=== PATIENT | male | born 1970 | race Caucasian/White ===

== ENCOUNTER 2020-11-22 14:07 | Outpatient (REF) | payer OTHER, SELFPAY ==
[2020-11-22 14:26] LABS: COVID-19 Test Negative (Negative)
== END 2020-11-22 14:08 | disposition home or self-care (01) ==
LOC: HO.EMPCOV 14:07
PROVIDERS: Visit Provider Internal Medicine
DX: Z20.822 Contact with and (suspected) exposure to COVID-19 (principal)
CPT/HCPCS: 36415; 87635; C9803

== ENCOUNTER 2021-03-10 09:33 | Outpatient (REF) | payer OTHER, SELFPAY ==
[2021-03-10 09:55] LABS: COVID-19 Test Negative (Negative)
== END 2021-03-10 09:34 | disposition home or self-care (01) ==
LOC: HO.EMPCOV 09:33
PROVIDERS: Visit Provider Internal Medicine
DX: Z20.822 Contact with and (suspected) exposure to COVID-19 (principal)
CPT/HCPCS: 36415; 87635; C9803

== ENCOUNTER 2021-03-10 10:02 | Emergency (ER) | payer OTHER, SELFPAY ==
--- NOTE | ~2021-03-10 | XR_ITS ---
EXAMINATION: XR CHEST CLINICAL INFORMATION: Chest pain COMPARISON: Chest radiographs 11/26/2019, 06/27/2019 TECHNIQUE: Portable upright AP view of the chest was obtained. FINDINGS: The lungs are clear. There is no pneumothorax, pleural reaction, airspace consolidation, or effusion. The costophrenic sulci are clear. The heart is normal in size. The hilar and mediastinal contours and visualized bony structures are unremarkable. XR/XR chest 1V IMPRESSION: Unremarkable examination.
[2021-03-10 11:14] VITALS: BP 169/78; PULSE 82; RESP 18; TEMP 36.6; O2SAT 98; BMI 33.0
--- NOTE | 2021-03-10 11:17 | ED.URI ---
HPI - URI/Sore Throat General Chief Complaint: General Medical Stated Complaint: covid symptoms Time Seen by Provider: 03/10/21 11:17 Source: patient Mode of arrival: ambulatory Limitations: no limitations History of Present Illness HPI Narrative: 50 yo male with HTN 2 weeks of cough, feeling of heartburn no response to tums, he no longer takes JALEN-i, just tested negative for COVID, not related to exertion, came in due to 2 weeks of cough and feelings of chest tightness MD elicited complaint: cough Onset (ago): week(s) (2) Consistency: intermittent Severity: moderate Description of mucous: clear Able to tolerate fluids by mouth: Yes Exacerbating factors: nothing Relieving factors: nothing Associated symptoms: cough and chest pain Treatments prior to arrival: none Related Data Previous Rx's Medication Instructions Recorded pantoprazole 20 mg PO DAILY 14 Days #14 tab 03/10/21 Allergies Allergy/AdvReac Type Severity Reaction Status Date / Time lisinopril [LISINOPRIL] Allergy Severe ANGIOEDEMA Unverified 08/01/20 17:23 spider venom [SPIDER BITES] Allergy Unknown HIVES, Unverified 08/01/20 17:23 THROAT CLOSES red (food color) AdvReac Severe ANAPHYLAXIS Unverified 08/01/20 17:23 [RED (FOOD COLOR)] SARDINES Allergy Severe ANAPHYLAXIS Uncoded 08/01/20 17:23 Review of Systems Review of Systems: Constitutional : No Weight loss, No Fever, No Chills ENT/Mouth : No sore throat, No Rhinorrhea Eyes: No Eye Pain, No Swelling Cardiovascular : pos Chest Pain, no SOB, no Dyspnea on Exertion, No Orthopnea, No Edema, No Palpitations Respiratory : pos Cough, No Sputum Gastrointestinal : no Nausea, No Vomiting, No Diarrhea, No abdominal Pain, No Hematochezia, No Melena Genitourinary : No Dysuria, No Urinary Frequency Musculoskeletal : No joint pain, No Myalgias, No Joint Swelling Skin : No Skin Lesions, No rash Neuro : No Weakness, No Numbness, No Dizziness, No Headache Psych : No Anxiety/Panic, No Depression Heme/Lymph: No Bruising, No Lymphadenopathy Endocrine : No Polyuria, No Polydipsia All other systems reviewed and are negative PMFSH Past Medical History Attestation statement: The following information was validated with the patient. Medical History HTN (hypertension) Social History Social History (Updated 03/10/21 @ 11:30 by Anahy Olivera DO) Smoking Status: Never smoker Use of substances other than those prescribed or required for medical reasons: No Advance Directives: No Advance Directives Information Provided: No Physical Exam Vital Signs: Vital Signs: Last Vital Signs Temp 97.9 F 03/10/21 11:14 Pulse 82 03/10/21 11:14 Resp 18 03/10/21 11:14 BP 169/78 H 03/10/21 11:14 Pulse Ox 98 03/10/21 11:14 Body Mass Index 33.0 Appearance: Alert. Oriented X3. No acute distress. Eyes: Pupils equal, round and reactive to light. ENT: Pharynx normal. Neck: Normal inspection. Neck supple. CVS: Normal heart rate and rhythm. Pulses normal. Respiratory: No respiratory distress. Breath sounds normal. Abdomen: Soft and nontender. Skin: Skin warm and dry. Normal skin color. Normal skin turgor. Extremities: No lower extremity edema. No calf ttp Neuro: Oriented X 3. No motor deficit. No sensory deficit. Course Course Course Narrative: no acute findings, possible reflux, hx of elevated LFTs will start on PPI and see if this improves his cough MDM - URI/Sore Throat MDM Narrative Medical decision making narrative: 50 yo male with HTN 2 weeks of cough, feeling of heartburn no response to tums, he no longer takes JALEN-i, just tested negative for COVID, not related to exertion, came in due to 2 weeks of cough and feelings of chest tightness seems atypical for PE/dissection/ACS possible GERD vs pneumonia will obtain labs, EKG, CXR, troponin x 1 dispo per results and improvement Lab Data Result diagrams: 03/10/21 11:40 03/10/21 11:40 Labs: Lab Results 03/10/21 03/10/21 03/10/21 Range/Units 11:40 11:40 11:40 WBC 6.3 (4.8-10.8) X10*3/uL RBC 5.27 (4.60-5.80) X10*6/uL Hgb 15.5 (14.0-18.0) g/dl Hct 46.2 (42-52) % MCV 87.7 (80-98) fL MCH 29.4 (27.0-33.0) pg MCHC 33.5 (31.0-36.0) g/dl RDW 13.1 (11.0-16.0) % Plt Count 173 (160-400) X10*3/uL MPV 11.3 (9.4-12.4) fL Immature Gran % (Auto) 0.3 (0.0-0.4) % Neut % (Auto) 61.2 (45-73) % Lymph % (Auto) 26.3 (20-40) % Porter % (Auto) 9.4 (2-11) % Eos % (Auto) 2.5 (0-4) % Baso % (Auto) 0.3 (0-2) % Lymph # (Auto) 1.7 (1.2-4.9) X10*3/uL Porter # (Auto) 0.6 (0.1-1.2) X10*3/uL Eos # (Auto) 0.2 (0.0-0.4) X10*3/uL Baso # (Auto) 0.0 (0.0-0.2) X10*3/uL Abs Immat Gran (auto) 0.02 (0.00-0.03) X10*3/uL Absolute Neuts (auto) 3.8 (2.0-8.3) X10*3/uL Absolute Nucleated RBC 0.000 (0.0-0.012) X10*3/uL Nucleated RBC % (auto) 0.0 (0.0-0.2) /100WBC Hold Blue Top SEE NOTE Sodium 137 (135-145) mmol/L Potassium 3.9 (3.3-5.1) mmol/L Chloride 102 (96-108) mmol/L Carbon Dioxide 26 (22-29) mmol/L Anion Gap 13 (12-20) BUN 12 (9-16) mg/dL Creatinine 0.85 (0.5-1.4) mg/dL Estim Creat Clear Calc 122.9 Estimated GFR > 60 Random Glucose 110 (60-115) mg/dL Calcium 8.9 (8.4-10.2) mg/dL Magnesium 2.2 (1.6-2.6) mg/dL Total Bilirubin 0.6 (0.0-1.0) mg/dL Direct Bilirubin 0.2 (0.0-0.5) mg/dL AST 66 H (5-37) U/L ALT 61 H (0-40) U/L Alkaline Phosphatase 123 H (39-117) U/L Troponin I High Sens (<3.5-35.0) ng/L B-Natriuretic Peptide (<100) pg/mL Total Protein 7.5 (6.5-8.0) g/dL Albumin 4.4 (3.5-5.0) g/dL 03/10/21 03/10/21 Range/Units 11:40 11:40 WBC (4.8-10.8) X10*3/uL RBC (4.60-5.80) X10*6/uL Hgb (14.0-18.0) g/dl Hct (42-52) % MCV (80-98) fL MCH (27.0-33.0) pg MCHC (31.0-36.0) g/dl RDW (11.0-16.0) % Plt Count (160-400) X10*3/uL MPV (9.4-12.4) fL Immature Gran % (Auto) (0.0-0.4) % Neut % (Auto) (45-73) % Lymph % (Auto) (20-40) % Porter % (Auto) (2-11) % Eos % (Auto) (0-4) % Baso % (Auto) (0-2) % Lymph # (Auto) (1.2-4.9) X10*3/uL Porter # (Auto) (0.1-1.2) X10*3/uL Eos # (Auto) (0.0-0.4) X10*3/uL Baso # (Auto) (0.0-0.2) X10*3/uL Abs Immat Gran (auto) (0.00-0.03) X10*3/uL Absolute Neuts (auto) (2.0-8.3) X10*3/uL Absolute Nucleated RBC (0.0-0.012) X10*3/uL Nucleated RBC % (auto) (0.0-0.2) /100WBC Hold Blue Top Sodium (135-145) mmol/L Potassium (3.3-5.1) mmol/L Chloride (96-108) mmol/L Carbon Dioxide (22-29) mmol/L Anion Gap (12-20) BUN (9-16) mg/dL Creatinine (0.5-1.4) mg/dL Estim Creat Clear Calc Estimated GFR Random Glucose (60-115) mg/dL Calcium (8.4-10.2) mg/dL Magnesium (1.6-2.6) mg/dL Total Bilirubin (0.0-1.0) mg/dL Direct Bilirubin (0.0-0.5) mg/dL AST (5-37) U/L ALT (0-40) U/L Alkaline Phosphatase (39-117) U/L Troponin I High Sens < 3.5 (<3.5-35.0) ng/L B-Natriuretic Peptide 29 (<100) pg/mL Total Protein (6.5-8.0) g/dL Albumin (3.5-5.0) g/dL ECG Data Attestation: I personally reviewed and interpreted this ECG as follows: ECG interpretation date: 03/10/21 ECG interpretation time: 12:16 Interpretation: Rate: 79 Rhythm: NSR [place]: normal Normal P waves. Normal KAUSHAL. Normal QRS complex. ST T wave : normal, no JUSTIN qTC:normal prior studies: no acute ischemia The study has been interpreted contemporaneously by me. . Discharge Plan Discharge Clinical Impression: Atypical chest pain, Cough Patient Disposition: Home, Self-Care Instructions: Chest Pain (ED), Chronic Cough (ED) Additional Instructions: return to ED for any worsening symptoms or concerns your liver enzymes are slightly elevated this is chronic but should be monitored for fatty liver by your doctor Prescriptions: New pantoprazole 20 mg tablet,delayed release (DR/EC) 20 mg PO DAILY 14 Days Qty: 14 RF: 0 Referrals: Physician,None [Primary Care Provider] - 5 days (if not better) Stand Alone Forms: Work/School Release
--- NOTE | 2021-03-10 11:24 | ECG_ITS ---
Test Reason : SOB Blood Pressure : / mmHG Vent. Rate : 079 BPM Atrial Rate : 079 BPM P-R Int : 172 ms QRS Dur : 108 ms QT Int : 378 ms P-R-T Axes : 045 066 028 degrees QTc Int : 433 ms Normal sinus rhythm Normal ECG When compared with ECG of 27-JUN-2019 12:41, No significant change was found Referred By: Anahy Olivera Electronically Signed By:CYN GARCIA MD
[2021-03-10 11:45] LABS: MANUAL DIFF FLAG NO
[2021-03-10 11:50] LABS: Basophils Percent Auto 0.3 % (0-2); Eosinophils Absolute Auto 0.2 X10*3/uL (0.0-0.4); Eosinophils Percent Auto 2.5 % (0-4); Hematocrit 46.2 % (42-52); Hemoglobin 15.5 g/dl (14.0-18.0); Imm Gran Abs Auto 0.02 X10*3/uL (0.00-0.03); Imm Gran Pct Auto 0.3 % (0.0-0.4); Lymphocytes Absolute Auto 1.7 X10*3/uL (1.2-4.9); Lymphocytes Percent Auto 26.3 % (20-40); Mean Corpuscular HGB Conc 33.5 g/dl (31.0-36.0); Mean Corpuscular Hemoglobin 29.4 pg (27.0-33.0); Mean Corpuscular Volume 87.7 fL (80-98); Mean Platelet Volume 11.3 fL (9.4-12.4); Monocytes Absolute Auto 0.6 X10*3/uL (0.1-1.2); Monocytes Percent Auto 9.4 % (2-11); Neutrophils Absolute Auto 3.8 X10*3/uL (2.0-8.3); Neutrophils Percent Auto 61.2 % (45-73); Platelet Count 173 X10*3/uL (160-400); Red Blood Count 5.27 X10*6/uL (4.60-5.80); Red Cell Distribution Width 13.1 % (11.0-16.0); White Blood Count 6.3 X10*3/uL (4.8-10.8)
--- NOTE | 2021-03-10 12:07 | PC.NURSE ---
blood labs drawn and sent, chest xray completed.
[2021-03-10 12:14] LABS: Alanine Aminotransferase 61 U/L (0-40); Albumin Level 4.4 g/dL (3.5-5.0); Alkaline Phosphatase 123 U/L (39-117); Anion Gap 13 (12-20); Aspartate Amino Transferase 66 U/L (5-37); Bilirubin Direct 0.2 mg/dL (0.0-0.5); Bilirubin Total 0.6 mg/dL (0.0-1.0); Blood Urea Nitrogen 12 mg/dL (9-16); Calcium 8.9 mg/dL (8.4-10.2); Carbon Dioxide 26 mmol/L (22-29); Chloride 102 mmol/L (96-108); Creatinine Clr Calc Pharmacy 122.9; Estimated Glomerular Filt Rate > 60; Glucose Random 110 mg/dL (60-115); Magnesium 2.2 mg/dL (1.6-2.6); Potassium 3.9 mmol/L (3.3-5.1); Sodium 137 mmol/L (135-145); Total Protein 7.5 g/dL (6.5-8.0)
[2021-03-10 12:18] LABS: Troponin-I High Sensitivity < 3.5 ng/L (<3.5-35.0)
[2021-03-10 12:20] LABS: B Type Natriuretic Peptide 29 pg/mL (<100)
== END 2021-03-10 12:32 | disposition home or self-care (01) ==
PROVIDERS: Emergency Provider Emergency Medicine
DX: R05 Cough (principal); R07.89 Other chest pain; I10 Essential (primary) hypertension; Z79.899 Other long term (current) drug therapy
CPT/HCPCS: 36415; 71045; 80048; 80076; 83735; 83880; 84484; 85025; 93005; 99283

== ENCOUNTER → 2021-07-16 10:30 | Outpatient (BNVA) | payer SELFPAY | DX: Z20.822 Contact with and (suspected) exposure to COVID-19 (principal) | CPT/HCPCS: 36415; 87635 ==

== ENCOUNTER 2021-07-25 14:20 | Emergency (ER) | payer OTHER, SELFPAY ==
--- NOTE | 2021-07-25 | ECG_ITS ---
Test Reason : SOB,CP Blood Pressure : / mmHG Vent. Rate : 086 BPM Atrial Rate : 086 BPM P-R Int : 162 ms QRS Dur : 100 ms QT Int : 376 ms P-R-T Axes : 057 037 041 degrees QTc Int : 449 ms Normal sinus rhythm Normal ECG When compared with ECG of 10-MAR-2021 12:12, No significant change was found Referred By: Generic ED Physician Electronically Signed By:KHURRAM CANCINO
--- NOTE | ~2021-07-25 | XR_ITS ---
EXAMINATION: XR CHEST CLINICAL INFORMATION: Chest pain COMPARISON: Previous chest x-ray February 2021 TECHNIQUE: Frontal view of the chest was obtained. FINDINGS: The cardiac and mediastinal contours are stable. The lungs are clear. There is no pleural effusion or pneumothorax. There is mild curvature of the thoracic spine to the right and degenerative changes. XR/XR chest 1V IMPRESSION: No evidence for acute disease in the chest.
[2021-07-25 14:27] VITALS: BP 145/99; PULSE 91; RESP 16; TEMP 37.1; O2SAT 99; BMI 34.0
[2021-07-25 16:06] LABS: MANUAL DIFF FLAG NO
[2021-07-25 16:10] LABS: Basophils Percent Auto 0.3 % (0-2); Eosinophils Absolute Auto 0.1 X10*3/uL (0.0-0.4); Eosinophils Percent Auto 1.8 % (0-4); Hematocrit 45.2 % (42-52); Hemoglobin 15.4 g/dl (14.0-18.0); Imm Gran Abs Auto 0.01 X10*3/uL (0.00-0.03); Imm Gran Pct Auto 0.1 % (0.0-0.4); Lymphocytes Absolute Auto 1.6 X10*3/uL (1.2-4.9); Lymphocytes Percent Auto 23.2 % (20-40); Mean Corpuscular HGB Conc 34.1 g/dl (31.0-36.0); Mean Corpuscular Hemoglobin 29.5 pg (27.0-33.0); Mean Corpuscular Volume 86.6 fL (80-98); Mean Platelet Volume 11.3 fL (9.4-12.4); Monocytes Absolute Auto 0.5 X10*3/uL (0.1-1.2); Monocytes Percent Auto 7.4 % (2-11); Neutrophils Absolute Auto 4.5 X10*3/uL (2.0-8.3); Neutrophils Percent Auto 67.2 % (45-73); Platelet Count 180 X10*3/uL (160-400); Red Blood Count 5.22 X10*6/uL (4.60-5.80); White Blood Count 6.7 X10*3/uL (4.8-10.8)
[2021-07-25 16:20] LABS: Anion Gap 10 (12-20); Blood Urea Nitrogen 16 mg/dL (9-16); Calcium 9.6 mg/dL (8.4-10.2); Carbon Dioxide 30 mmol/L (22-29); Chloride 102 mmol/L (96-108); Creatinine Clr Calc Pharmacy 102.7; Estimated Glomerular Filt Rate > 60; Glucose Random 151 mg/dL (60-115); Potassium 3.8 mmol/L (3.3-5.1); Sodium 138 mmol/L (135-145)
[2021-07-25 16:23] LABS: COVID-19 Test Negative (Negative)
[2021-07-25 16:27] LABS: Troponin-I High Sensitivity < 3.5 ng/L (<3.5-35.0)
[2021-07-25 18:00] VITALS: TEMP 36.9; O2SAT 95
--- NOTE | 2021-07-25 18:23 | ED.CHESTPAIN ---
HPI - Chest Pain General Chief Complaint: Chest Pain Stated Complaint: multiple complaints Source: patient Mode of arrival: ambulatory Limitations: no limitations History of Present Illness HPI narrative: 51-year-old male presents with chest pain, shortness of breath, sore throat, nausea and vomiting after receiving his COVID vaccine approximately 1 week ago. complaint: chest pain Onset (ago): week(s) (1) Pain location: substernal Severity: moderate Quality: tightness Relieving factors: nothing Exacerbating factors: exertion Associated symptoms: nausea, vomiting and dyspnea Treatment prior to arrival: none Risk Factors Coronary artery disease risk factors: hypertension Thoracic aortic dissection risk factors: none Related Data Previous Rx's Medication Instructions Recorded pantoprazole 20 mg tablet,delayed 20 mg PO DAILY 14 Days #14 tab 03/10/21 release Allergies Allergy/AdvReac Type Severity Reaction Status Date / Time lisinopril [LISINOPRIL] Allergy Severe ANGIOEDEMA Unverified 04/18/21 15:25 spider venom [SPIDER BITES] Allergy Unknown HIVES, Unverified 04/18/21 15:25 THROAT CLOSES red (food color) AdvReac Severe ANAPHYLAXIS Unverified 04/18/21 15:25 [RED (FOOD COLOR)] SARDINES Allergy Severe ANAPHYLAXIS Uncoded 04/18/21 15:25 Review of Systems Review of Systems: Constitutional: No Fever, No Chills ENT/Mouth: No Ear Pain, No Hoarseness, positive sore throat Eyes: No Eye Pain, No Swelling, No Redness, No Foreign Body Cardiovascular: No Chest Pain, positive SOB Respiratory: Positive Cough, No Dyspnea Gastrointestinal: Positive Nausea, positive Vomiting, No Diarrhea, No abdominal Pain Genitourinary: No Dysuria, No Hematuria Musculoskeletal: positive muscle pain, No Myalgias, No Joint Swelling Skin: No Skin lacerations, No rash Neuro: No Weakness, No Numbness, No Paresthesias, No Loss of Consciousness, No Dizziness, No Headache Psych: No Anxiety/Panic, No Depression Heme/Lymph: no easy bruising, no Lymphadenopathy Endocrine: No Polyuria, No Polydipsia Yes all other systems are reviewed and are negative [facility] Past Medical History Attestation statement: The following information was validated with the patient. Source: old records reviewed Medical History HTN (hypertension) Social History Social History Advance Directives: No Advance Directives Information Provided: No Physical Exam Vital Signs: Vital Signs: Last Vital Signs Temp 98.4 F 07/25/21 18:00 Pulse 91 07/25/21 14:27 Resp 16 07/25/21 14:27 BP 145/99 H 07/25/21 14:27 Pulse Ox 95 07/25/21 18:00 Body Mass Index 34.0 Appearance: Alert. Oriented X3. No acute distress. Eyes: Pupils equal, round and reactive to light. Sclera nonicteric. ENT: Pharynx normal. Moist mucous membranes. Neck: Normal inspection. Neck supple. CVS: Normal heart rate and rhythm. Pulses normal. Respiratory: No respiratory distress. Breath sounds normal. Abdomen: Soft and nontender. Obese. Skin: Skin warm and dry. Normal skin color. Normal skin turgor. Extremities: No lower extremity edema. Gait well balanced well coordinated. Neuro: No motor deficit. No sensory deficit. Cranial nerves 2-12 intact. Course Course Course Narrative: 51-year-old male presents with upper respiratory symptoms and chest pain approximately 1 week after receiving COVID-19 vaccine. Labs drawn while he was in the waiting room, negative for acute findings, EKG is normal sinus, troponins are negative. Symptoms are most consistent with upper respiratory infection verses allergies, low likelihood of ACS at this time. Supportive measures for upper respiratory symptoms recommended. Patient verbalized understanding of and agrees to plan of care discharge home. MDM - Chest Pain Differential Diagnosis Differential diagnosis: Likely pneumothorax, stable angina, unstable angina pectoris, atypical chest pain, st elevation myocardial infarction, costochondritis and chest pain Medical Records Data Attestation: I reviewed the patient's medical records. Lab Data Attestation: I reviewed the patient's lab results. Result diagrams: 07/25/21 15:58 07/25/21 15:58 Labs: Lab Results 07/25/21 07/25/21 07/25/21 Range/Units 15:58 15:58 15:58 WBC 6.7 (4.8-10.8) X10*3/uL RBC 5.22 (4.60-5.80) X10*6/uL Hgb 15.4 (14.0-18.0) g/dl Hct 45.2 (42-52) % MCV 86.6 (80-98) fL MCH 29.5 (27.0-33.0) pg MCHC 34.1 (31.0-36.0) g/dl RDW 13.0 (11.0-16.0) % Plt Count 180 (160-400) X10*3/uL MPV 11.3 (9.4-12.4) fL Immature Gran % (Auto) 0.1 (0.0-0.4) % Neut % (Auto) 67.2 (45-73) % Lymph % (Auto) 23.2 (20-40) % Mcleod % (Auto) 7.4 (2-11) % Eos % (Auto) 1.8 (0-4) % Baso % (Auto) 0.3 (0-2) % Lymph # (Auto) 1.6 (1.2-4.9) X10*3/uL Mcleod # (Auto) 0.5 (0.1-1.2) X10*3/uL Eos # (Auto) 0.1 (0.0-0.4) X10*3/uL Baso # (Auto) 0.0 (0.0-0.2) X10*3/uL Abs Immat Gran (auto) 0.01 (0.00-0.03) X10*3/uL Absolute Neuts (auto) 4.5 (2.0-8.3) X10*3/uL Absolute Nucleated RBC 0.000 (0.0-0.012) X10*3/uL Nucleated RBC % (auto) 0.0 (0.0-0.2) /100WBC Sodium 138 (135-145) mmol/L Potassium 3.8 (3.3-5.1) mmol/L Chloride 102 (96-108) mmol/L Carbon Dioxide 30 H (22-29) mmol/L Anion Gap 10 L (12-20) BUN 16 (9-16) mg/dL Creatinine 0.99 (0.5-1.4) mg/dL Estim Creat Clear Calc 102.7 Estimated GFR > 60 Random Glucose 151 H D (60-115) mg/dL Calcium 9.6 D (8.4-10.2) mg/dL Troponin I High Sens < 3.5 (<3.5-35.0) ng/L COVID-19 (JORJE) (Negative) COVID-19 Clin Com 07/25/21 Range/Units 15:58 WBC (4.8-10.8) X10*3/uL RBC (4.60-5.80) X10*6/uL Hgb (14.0-18.0) g/dl Hct (42-52) % MCV (80-98) fL MCH (27.0-33.0) pg MCHC (31.0-36.0) g/dl RDW (11.0-16.0) % Plt Count (160-400) X10*3/uL MPV (9.4-12.4) fL Immature Gran % (Auto) (0.0-0.4) % Neut % (Auto) (45-73) % Lymph % (Auto) (20-40) % Mcleod % (Auto) (2-11) % Eos % (Auto) (0-4) % Baso % (Auto) (0-2) % Lymph # (Auto) (1.2-4.9) X10*3/uL Mcleod # (Auto) (0.1-1.2) X10*3/uL Eos # (Auto) (0.0-0.4) X10*3/uL Baso # (Auto) (0.0-0.2) X10*3/uL Abs Immat Gran (auto) (0.00-0.03) X10*3/uL Absolute Neuts (auto) (2.0-8.3) X10*3/uL Absolute Nucleated RBC (0.0-0.012) X10*3/uL Nucleated RBC % (auto) (0.0-0.2) /100WBC Sodium (135-145) mmol/L Potassium (3.3-5.1) mmol/L Chloride (96-108) mmol/L Carbon Dioxide (22-29) mmol/L Anion Gap (12-20) BUN (9-16) mg/dL Creatinine (0.5-1.4) mg/dL Estim Creat Clear Calc Estimated GFR Random Glucose (60-115) mg/dL Calcium (8.4-10.2) mg/dL Troponin I High Sens (<3.5-35.0) ng/L COVID-19 (JORJE) Negative (Negative) COVID-19 Clin Com See Note Imaging Data Chest x-ray: Attestation: I personally reviewed and interpreted this imaging study as follows: Radiologist's impression: EXAMINATION: XR CHEST CLINICAL INFORMATION: Chest pain COMPARISON: Previous chest x-ray February 2021 TECHNIQUE: Frontal view of the chest was obtained. FINDINGS: The cardiac and mediastinal contours are stable. The lungs are clear. There is no pleural effusion or pneumothorax. There is mild curvature of the thoracic spine to the right and degenerative changes. XR/XR chest 1V IMPRESSION: No evidence for acute disease in the chest. ? ECG Data ECG #1: ECG interpretation date: 07/25/21 ECG interpretation time: 14:43 Prior ECG tracings: available for review Interpretation: Vent. rate 86 BPM [place] interval 162 ms QRS duration 100 ms QT/QTc 376/449 ms P-R-T axes 57 37 41 Normal sinus rhythm Normal ECG When compared with ECG of 10-MAR-2021 12:12, No significant change was found Discharge Plan Discharge Clinical Impression: Non-cardiac chest pain, Upper respiratory infection Patient Disposition: Home, Self-Care Instructions: Viral Syndrome (ED), Noncardiac Chest Pain (ED) Additional Instructions: You were evaluated for upper respiratory symptoms and chest pain after receiving a COVID-19 vaccine approximately 1 week ago. Your COVID-19 test is negative. Your cardiac enzymes are negative, your blood levels are within normal limits with the exception of your blood sugar which is elevated at 151. You must follow-up with her primary care physician, the clinical diagnosis of diabetes is any blood sugar over 126. Your symptoms are consistent with a upper respiratory viral infection or environmental allergies. Please continue to use [id number] measures and follow the instructions on whichever products he purchased. Please drink plenty of fluids including water. You have been taking Mucinex, Mucinex works best with water. I referred you to ENT for tinnitus, which is ringing in the ears. Thank you for choosing this emergency department for evaluation. Please follow-up with primary care physician as needed. Return to the emergency department for any new, concerning, or worsening symptoms. Prescriptions: No Action pantoprazole 20 mg tablet,delayed release (DR/EC) 20 mg PO DAILY 14 Days Qty: 14 RF: 0 Referrals: Mingo Robin [Physician] - 2 days (Tinnitus) Interventions: ED Discharge Assessment Last Done: 07/25/21 19:01 Discharge Date/Time: 07/25/21 19:02
== END 2021-07-25 19:02 | disposition home or self-care (01) ==
PROVIDERS: Emergency Provider Emergency Medicine Emergency Medical Services
DX: J06.9 Acute upper respiratory infection, unspecified (principal); R07.89 Other chest pain; Z20.822 Contact with and (suspected) exposure to COVID-19; Z79.899 Other long term (current) drug therapy
CPT/HCPCS: 36415; 71045; 80048; 84484; 85025; 87635; 93005; 99283; 99284

== ENCOUNTER 2021-08-22 20:21 | Emergency (ER) | payer OTHER, SELFPAY ==
--- NOTE | ~2021-08-22 | CT_ITS ---
EXAMINATION: CTA OF THE HEAD/NECK CLINICAL INFORMATION: Neck pain. Right-sided headache. COMPARISON: None. TECHNIQUE: A routine non contrast head CT was performed followed by a 65 mL bolus of Omnipaque 350. Subsequent multidetector helical imaging was performed of the head and neck. Delayed post contrast imaging was also performed through the head. Multiplanar reformats and MIP were also obtained. Internal carotid artery stenoses are assessed in accordance with NASCET criteria unless otherwise indicated. This CT examination was performed using dose optimization techniques as appropriate, variously including the following: *Automated exposure control *Adjustment of mA and/or kV according to patient size (this includes techniques or standardized protocols for targeted exams where dose is matched to indication/reason for exam; i.e. extremities or head) *Use of iterative reconstruction technique DLP: 2252 mGy-cm. FINDINGS: CT HEAD: There is no evidence of acute intracranial hemorrhage or territorial infarction. No abnormal mass effect or midline shift is seen. Cantu to white matter differentiation is well preserved. No extra-axial fluid collections are identified. No suspicious leptomeningeal or parenchymal enhancement on the post-contrast images. No hydrocephalus. No significant volume loss. There is no abnormal attenuation within the brain parenchyma. The osseous structures and soft tissues are normal. Small mucus retention cyst of the right maxillary sinus. The mastoid air cells and visualized portions of the paranasal sinuses are otherwise well aerated. CTA NECK: The aortic arch is of normal caliber and the origins of the great vessels are patent without evidence of significant stenosis. The cervical portion of the vertebral arteries are patent bilaterally. No luminal irregularities in the common carotid arteries and the carotid bifurcations are patent bilaterally. The cervical portion of the internal carotid arteries are of normal caliber. The laryngeal structures and pharyngeal mucosal spaces are unremarkable. The oral cavity appears normal. The parotid and submandibular glands are normal. No pathologically enlarged lymph nodes. The thyroid gland is unremarkable. Calcified granulomata at the lung apices. No pneumothorax.. Spinal alignment is maintained. Mild cervical spondylosis is noted. CTA HEAD: The intradural portion of the vertebral arteries are of normal caliber. The basilar, superior cerebellar, and posterior communicating arteries are patent. The posterior, middle, and anterior cerebral arteries are of normal caliber without evidence of significant luminal irregularity. Of note, the distal aspects of the anterior cerebral arteries are not included in the telof-pq-aogs of this study. No definite intracranial aneurysms. CT/CT angio head neck IMPRESSION: 1. No acute intracranial finding. 2. No acute vascular abnormality. No vascular dissection.
[2021-08-22 21:43] VITALS: BP 140/96; PULSE 90; RESP 18; TEMP 37.2; O2SAT 99; BMI 33.0
[2021-08-22 22:00] LABS: Glucose, Whole Blood 259 mg/dL (60-115)
--- NOTE | 2021-08-22 22:04 | ED_ITS ---
HPI - Headache General Chief Complaint: Headache Stated Complaint: multiple complaints Time Seen by Provider: 08/22/21 21:55 Source: patient Mode of arrival: ambulatory Limitations: no limitations History of Present Illness MD elicited complaint: headache and migraine Onset (ago): month(s) (1) Onset description: gradually Location: right, frontal, temporal, occipital and band-like Severity: severe Quality & Timing: throbbing Exacerbating factors: movement of head/neck, sitting/standing, light and noise Relieving factors: nothing Context: occurred at rest Associated symptoms: photophobia and other (blurred vision, ringing in his R ear, nausea) Treatments prior to arrival: other (saw ENT no relief with prednisone) Related Data Previous Rx's Medication Instructions Recorded pantoprazole 20 mg tablet,delayed 20 mg PO DAILY 14 Days #14 tab 03/10/21 release uphbhbyrqd-otyqmsujunzxo-bppnqrvy 1 tab PO Q6H PRN #20 tab 08/23/21 50 mg-325 mg-40 mg tablet cyclobenzaprine 10 mg tablet 10 mg PO TID PRN #14 tab 08/23/21 meclizine 25 mg tablet 25 mg PO TID PRN #30 tab 08/23/21 ondansetron 4 mg disintegrating 4 mg PO Q8H PRN #20 tab 08/23/21 tablet Allergies Allergy/AdvReac Type Severity Reaction Status Date / Time lisinopril [LISINOPRIL] Allergy Severe ANGIOEDEMA Verified 08/22/21 21:42 spider venom [SPIDER BITES] Allergy Unknown HIVES, Verified 08/22/21 21:42 THROAT CLOSES red (food color) AdvReac Severe ANAPHYLAXIS Verified 08/22/21 21:42 [RED (FOOD COLOR)] SARDINES Allergy Severe ANAPHYLAXIS Uncoded 04/18/21 15:25 Review of Systems Review of Systems: Constitutional : No Fever, No Chills, No Fatigue ENT/Mouth : No sore throat, No Rhinorrhea Eyes: No Eye Pain, No Swelling, No Redness, pos photophobia, pos blurred vision Cardiovascular : No Chest Pain, No SOB, No Dyspnea on Exertion Respiratory : No Cough, No Sputum Gastrointestinal : pos Nausea, No Vomiting, No Diarrhea, No abdominal Pain Genitourinary : No Dysuria, No Urinary Frequency, No Hematuria, Musculoskeletal : No joint pain, No Myalgias, No Joint Swelling Skin : No Skin Lesions, No rash Neuro : No Weakness, No Numbness, No Dizziness, positive Headache Psych : No Anxiety/Panic, No Depression Heme/Lymph: No Bruising, No Bleeding,No Lymphadenopathy Endocrine : No Polyuria, No Polydipsia All other systems reviewed and are negative [facility] Past Medical History Attestation statement: The following information was validated with the patient. Medical History Diabetes HTN (hypertension) Social History Social History (Updated 08/22/21 @ 22:27 by Anahy Olivera DO) Patient Tobacco Use Status: Tobacco use Unknown Advance Directives: No Advance Directives Information Provided: Yes Physical Exam Vital Signs: Vital Signs: Last Vital Signs Temp 97.7 F 08/22/21 23:50 Pulse 76 08/22/21 23:50 Resp 16 08/22/21 23:50 BP 138/90 H 08/22/21 23:50 Pulse Ox 97 08/22/21 23:50 Body Mass Index 33.0 Appearance: Alert. Oriented X3. No acute distress. Eyes: Pupils equal, round and reactive to light. photophobia ENT: Pharynx normal. R TM normal Neck: Normal inspection. Neck supple. TTP along R lateral cervical area CVS: Normal heart rate and rhythm. Pulses normal. Respiratory: No respiratory distress. Breath sounds normal. Abdomen: Soft and nontender. Skin: Skin warm and dry. Normal skin color. Normal skin turgor. Extremities: No lower extremity edema. No calf ttp Neuro: Oriented X 3. No motor deficit. No sensory deficit. normal gait Course Course Course Narrative: no acute findings feels much better stable for DC MDM - Headache MDM Narrative Medical decision making narrative: 51 yo male with hx of GERD, DM - diet controlled here with c/o 1 month of R sided headache, tinnitus that has not responded to prednisone at this time is seems referred from his neck - will obtain labs, CT scan to evaluate for mass/aneurysm. Dispo per results and finidngs. Lab Data Result diagrams: 08/22/21 22:19 08/22/21 22:19 Labs: Lab Results 08/22/21 08/22/21 08/22/21 Range/Units 21:53 22:19 22:19 WBC 13.6 H (4.8-10.8) X10*3/uL RBC 5.51 (4.60-5.80) X10*6/uL Hgb 16.4 (14.0-18.0) g/dl Hct 47.3 (42-52) % MCV 85.8 (80-98) fL MCH 29.8 (27.0-33.0) pg MCHC 34.7 (31.0-36.0) g/dl RDW 13.2 (11.0-16.0) % Plt Count 189 (160-400) X10*3/uL MPV 10.7 (9.4-12.4) fL Immature Gran % (Auto) 0.7 H (0.0-0.4) % Neut % (Auto) 59.3 (45-73) % Lymph % (Auto) 30.3 (20-40) % [place] % (Auto) 8.5 (2-11) % Eos % (Auto) 1.0 (0-4) % Baso % (Auto) 0.2 (0-2) % Lymph # (Auto) 4.1 (1.2-4.9) X10*3/uL [place] # (Auto) 1.2 (0.1-1.2) X10*3/uL Eos # (Auto) 0.1 (0.0-0.4) X10*3/uL Baso # (Auto) 0.0 (0.0-0.2) X10*3/uL Abs Immat Gran (auto) 0.10 H (0.00-0.03) X10*3/uL Absolute Neuts (auto) 8.0 (2.0-8.3) X10*3/uL Absolute Nucleated RBC 0.000 (0.0-0.012) X10*3/uL Nucleated RBC % (auto) 0.0 (0.0-0.2) /100WBC Sodium 136 (135-145) mmol/L Potassium 3.4 (3.3-5.1) mmol/L Chloride 102 (96-108) mmol/L Carbon Dioxide 24 (22-29) mmol/L Anion Gap 13 (12-20) BUN 32 H D (9-16) mg/dL Creatinine 1.16 (0.5-1.4) mg/dL Estim Creat Clear Calc 89.0 Estimated GFR > 60 POC Glucose 259 H (60-115) mg/dL Random Glucose 252 H D (60-115) mg/dL Calcium 9.1 (8.4-10.2) mg/dL Magnesium 2.2 (1.6-2.6) mg/dL Discharge Plan Discharge Clinical Impression: Tinnitus Qualifiers: Laterality: right Qualified Code(s): H93.11 - Tinnitus, right ear Headache Qualifiers: Headache type: unspecified Headache chronicity pattern: acute headache Intractability: intractable Qualified Code(s): R51.9 - Headache, unspecified Patient Disposition: Home, Self-Care Instructions: Acute Headache (ED), Tinnitus (ED) Additional Instructions: return to ED for any worsening symptoms or concerns The intradural portion of the vertebral arteries are of normal caliber. The basilar, superior cerebellar, and posterior communicating arteries are patent. The posterior, middle, and anterior cerebral arteries are of normal caliber without evidence of significant luminal irregularity. Of note, the distal aspects of the anterior cerebral arteries are not included in the kbmlt-ed-bgmd of this study. No definite intracranial aneurysms. CT/CT angio head neck IMPRESSION: ? 1. No acute intracranial finding. 2. No acute vascular abnormality. No vascular dissection. Prescriptions: New cyclobenzaprine 10 mg tablet 10 mg PO TID PRN (Reason: muscle spasm) Qty: 14 RF: 0 meclizine 25 mg tablet 25 mg PO TID PRN (Reason: dizziness) Qty: 30 RF: 0 klcptefkvx-dxkhnajabumlt-ehpq 50-325-40 mg tablet 1 tab PO Q6H PRN (Reason: pain) Qty: 20 RF: 0 ondansetron 4 mg tablet,disintegrating 4 mg PO Q8H PRN (Reason: nausea and vomiting) Qty: 20 RF: 0 No Action pantoprazole 20 mg tablet,delayed release (DR/EC) 20 mg PO DAILY 14 Days Qty: 14 RF: 0 Stand Alone Forms: Work/School Release
[2021-08-22 22:24] LABS: Basophils Percent Auto 0.2 % (0-2); Eosinophils Absolute Auto 0.1 X10*3/uL (0.0-0.4); Hematocrit 47.3 % (42-52); Hemoglobin 16.4 g/dl (14.0-18.0); Imm Gran Pct Auto 0.7 % (0.0-0.4); Lymphocytes Absolute Auto 4.1 X10*3/uL (1.2-4.9); Lymphocytes Percent Auto 30.3 % (20-40); MANUAL DIFF FLAG NO; Mean Corpuscular HGB Conc 34.7 g/dl (31.0-36.0); Mean Corpuscular Hemoglobin 29.8 pg (27.0-33.0); Mean Corpuscular Volume 85.8 fL (80-98); Mean Platelet Volume 10.7 fL (9.4-12.4); Monocytes Absolute Auto 1.2 X10*3/uL (0.1-1.2); Monocytes Percent Auto 8.5 % (2-11); Neutrophils Percent Auto 59.3 % (45-73); Platelet Count 189 X10*3/uL (160-400); Red Blood Count 5.51 X10*6/uL (4.60-5.80); Red Cell Distribution Width 13.2 % (11.0-16.0); White Blood Count 13.6 X10*3/uL (4.8-10.8)
[2021-08-22] MEDS: diphenhydrAMINE HCL 50 MG/ML VIAL 25 MG IVPUSH (22:28)
[2021-08-22] MEDS: Metoclopramide HCl 10 MG/2 ML VIAL IVPUSH (22:28)
[2021-08-22] MEDS: 0.9 % Sodium Chloride 1,000 ML 999 ML IVCONT (22:31)
[2021-08-22 22:40] LABS: Anion Gap 13 (12-20); Blood Urea Nitrogen 32 mg/dL (9-16); Calcium 9.1 mg/dL (8.4-10.2); Carbon Dioxide 24 mmol/L (22-29); Chloride 102 mmol/L (96-108); Estimated Glomerular Filt Rate > 60; Glucose Random 252 mg/dL (60-115); Magnesium 2.2 mg/dL (1.6-2.6); Potassium 3.4 mmol/L (3.3-5.1); Sodium 136 mmol/L (135-145)
--- NOTE | 2021-08-22 23:19 | PC.NURSE ---
This RN to bedside to reeval pt s/p meds. Pt at ED CT at this time
[2021-08-22] MEDS: iohexoL 350 MG/ML 100 ML INFUS..BTL 70 ML IV (23:25)
[2021-08-22 23:50] VITALS: BP 138/90; PULSE 76; RESP 16; TEMP 36.5; O2SAT 97
== END 2021-08-23 00:30 | disposition home or self-care (01) ==
PROVIDERS: Emergency Provider Emergency Medicine
DX: R51.9 Headache, unspecified (principal); H93.11 Tinnitus, right ear; E11.9 Type 2 diabetes mellitus without complications; I10 Essential (primary) hypertension
CPT/HCPCS: 36415; 70496; 70498; 80048; 82947; 83735; 85025; 96361; 96374; 96375; 99284; J1200; J2765; Q9967

== ENCOUNTER 2021-10-03 12:30 | Emergency (ER) | payer OTHER, SELFPAY ==
[2021-10-03 13:07] VITALS: BP 189/100; PULSE 75; RESP 18; TEMP 36.8; O2SAT 100; BMI 33.0
[2021-10-03] MEDS: Ibuprofen 600 MG TABLET PO (13:18)
--- NOTE | 2021-10-03 16:55 | PC.NURSE ---
PT & HAVE COME UP TO THE TRIAGE ROOM MULTIPLE TIMES W/? OF WHEN THEY WILL BE BROUGHT BACK. IT HAS BEEN THIS RN IS UNABLE TO FULLY EXPLAIN WAIT TIME BEFORE PT AND OR HIS BEGIN TO VERBALLY ABUSE THIS RN. THIS PLACE FUCKING SUCKS, YOU PEOPLE FUCKING SUCK, YOU PEOPLE DONT KNOW HOW TO DO YOUR FUCKING JOB THIS HAS APOLOGIZED MULTIPLE TIMES D/T WAIT TIME BUT THAT WAS ULTIMATELY MET WITH I DON'T WANT TO HEAR IT AND WALKING AWAY WHILE I WAS SPEAKING.
== END 2021-10-03 20:59 | disposition left against medical advice (07) ==
PROVIDERS: Emergency Provider Emergency Medicine
DX: R10.32 Left lower quadrant pain (principal); R31.9 Hematuria, unspecified; Z87.442 Personal history of urinary calculi
CPT/HCPCS: 99283

== ENCOUNTER 2021-10-03 22:44 | Emergency (ER) | payer OTHER, SELFPAY ==
--- NOTE | ~2021-10-03 | CT_ITS ---
EXAMINATION: CT ABDOMEN AND PELVIS WITH CONTRAST CLINICAL INFORMATION: Left lower quadrant pain COMPARISON: 06/27/2019 TECHNIQUE: Multidetector volumetric images were obtained from the superior aspect of the liver through the pubic symphysis following administration 85 mL of Omnipaque 350 intravenous contrast. Sagittal and coronal reformatted images were obtained on the technologist's workstation. Oral contrast: No This CT examination was performed using dose optimization techniques as appropriate, variously including the following: *Automated exposure control *Adjustment of mA and/or kV according to patient size (this includes techniques or standardized protocols for targeted exams where dose is matched to indication/reason for exam; i.e. extremities or head) *Use of iterative reconstruction technique DLP: 789 mGy-cm FINDINGS: LUNG BASES: Redemonstrated scattered lung nodules, most of which are calcified, as well as calcified mediastinal and hilar lymph nodes favoring sequelae of prior granulomatous disease. Coronary artery calcifications are present. LIVER, GALLBLADDER, AND BILIARY TREE: The liver is normal in size, shape, and attenuation. No focal hepatic lesion or biliary ductal dilatation is present. The gallbladder is unremarkable with no evidence of radiopaque gallstones, gallbladder wall thickening, or obvious pericholecystic inflammatory changes. PANCREAS: Unremarkable. SPLEEN: Mildly enlarged, measuring 15.3 cm in the axial plane. ADRENAL GLANDS: Unremarkable. KIDNEYS AND URETERS: There is a 2 mm distal left ureteral calculus in the region of the ureterovesicular junction with mild hydronephrosis and perinephric stranding. Left nephrogram is delayed. No right-sided hydronephrosis. A couple tiny right renal calculi are noted. BLADDER: Unremarkable. GASTROINTESTINAL TRACT: Colonic diverticulosis is noted. The small and large bowel are otherwise unremarkable without evidence of obstruction or pericolonic inflammatory change. The appendix is unremarkable. No free fluid or free air is seen. ABDOMINAL WALL: Small fat-containing right inguinal hernia noted. LYMPH NODES: Normal. VASCULAR: Scattered atherosclerotic calcifications are noted. PELVIC VISCERA: Unremarkable. OSSEOUS STRUCTURES: Scattered degenerative changes noted in the spine. CT/CT abdomen pelvis w con IMPRESSION: 1. Distal left ureteral calculus measuring 2 mm with mild hydronephrosis, perinephric stranding, and delayed left nephrogram. 2. Tiny right renal calculi without hydronephrosis. 3. Coronary artery calcifications. Correlation with cardiac risk factors is recommended.
[2021-10-03 23:39] VITALS: BP 146/101; PULSE 95; RESP 18; TEMP 36.5; O2SAT 99; BMI 33.0
--- NOTE | 2021-10-04 00:19 | ED_ITS ---
HPI - Male Genitourinary General Chief complaint: Urogenital-Male Stated complaint: severe abd pain urinating blood Time Seen by Provider: 10/04/21 00:09 Source: patient Mode of arrival: ambulatory Limitations: no limitations History of Present Illness HPI Narrative: Patient comes to emergency room complaining of left lower quadrant pain, nausea, no vomiting or diarrhea, complaining of constipation since this morning. Patient states that he noticed that he had constipation this morning at 06:00, by noon he started having left lower quadrant pain that has been constant, radiating towards the left side of the groin. Patient states he has been having trouble urinating, states that he has to push to get the ur inary stream going. Patient denies hematuria or dysuria. No fever chills, no flank pain Related Data Previous Rx's Medication Instructions Recorded pantoprazole 20 mg tablet,delayed 20 mg PO DAILY 14 Days #14 tab 03/10/21 release hmyswdymzq-zpspplvyekbvr-mzyyamaq 1 tab PO Q6H PRN #20 tab 08/23/21 50 mg-325 mg-40 mg tablet cyclobenzaprine 10 mg tablet 10 mg PO TID PRN #14 tab 08/23/21 meclizine 25 mg tablet 25 mg PO TID PRN #30 tab 08/23/21 ondansetron 4 mg disintegrating 4 mg PO Q8H PRN #20 tab 08/23/21 tablet ketorolac 10 mg tablet 10 mg PO TID PRN 5 Days #10 tab 10/04/21 ondansetron HCl 4 mg tablet 4 mg PO Q6H PRN #10 tab 10/04/21 (Zofran) prednisone 20 mg tablet 20 mg PO DAILY #4 tab 10/04/21 tamsulosin 0.4 mg capsule 0.4 mg PO DAILY #10 cap 10/04/21 Allergies Allergy/AdvReac Type Severity Reaction Status Date / Time lisinopril [LISINOPRIL] Allergy Severe ANGIOEDEMA Verified 08/22/21 21:42 spider venom [SPIDER BITES] Allergy Unknown HIVES, Verified 08/22/21 21:42 THROAT CLOSES red (food color) AdvReac Severe ANAPHYLAXIS Verified 08/22/21 21:42 [RED (FOOD COLOR)] [place]ARDIN[place] Allergy Severe ANAPHYLAXIS Uncoded 04/18/21 15:25 Review of Systems Review of Systems: Constitutional : No Weight loss, No Fever, No Chills, No Night Sweats, No Fatigue, No Malaise ENT/Mouth : No Hearing loss, No Ear Pain, No Nasal Congestion, No Sinus Pain, No Hoarseness, No sore throat, No Rhinorrhea, No Swallowing Difficulty Eyes: No Eye Pain, No Swelling, No Redness, No Foreign Body, No Discharge, No Vision Changes Cardiovascular : No Chest Pain, No SOB, No Dyspnea on Exertion, No Orthopnea, No Edema, No Palpitations Respiratory : No Cough, No Sputum, No Wheezing, No Smoke Exposure, No Dyspnea Gastrointestinal : Complaining of Nausea, No Vomiting, No Diarrhea, complaining of Constipation, complaining of left lower quadrant pain, constant, radiating towards the left groin area Genitourinary : Denies Dysuria, No Urinary Frequency, No Hematuria, No Urinary Incontinence, No Urgency, No Flank Pain, states he has to press hard to start urinary stream,No Hesitancy Musculoskeletal : No joint pain, No Myalgias, No Joint Swelling Skin : No Skin Lesions, No rash Neuro : No Weakness, No Numbness, No Paresthesias, No Loss of Consciousness, No Dizziness, No Headache Psych : No Anxiety/Panic, No Depression, No SI/HI/AH/VH, No Social Issues, Heme/Lymph: No Bruising, No Bleeding,No Lymphadenopathy Endocrine : No Polyuria, No Polydipsia, No Temperature Intolerance [facility] Past Medical History Medical History Diabetes HTN (hypertension) Social History Social History (Updated 08/22/21 @ 22:27 by Anahy Olivera DO) Patient Tobacco Use Status: Tobacco use Unknown Advance Directives: No Advance Directives Information Provided: No Physical Exam Vital Signs: Vital Signs: Last Vital Signs Temp 97.7 F 10/03/21 23:39 Pulse 88 10/04/21 00:41 Resp 16 10/04/21 00:41 BP 161/95 H 10/04/21 00:41 Pulse Ox 98 10/04/21 00:41 Body Mass Index 33.0 Const: Other: Appearance: Alert. Oriented X3. No acute distress. Well-appearing Eyes: Pupils equal, round and reactive to light. ENT: Pharynx normal. Neck: Normal inspection. Neck supple. No lymph nodes noted. No crepitus CVS: Normal heart rate and rhythm. Pulses normal. Normal S1 and S2 Respiratory: No respiratory distress. Breath sounds normal. No Wheezing. No rales Abdomen: Soft , mild tenderness to palpation in left lower quadrant and suprapubic area. No CVA tenderness. Skin: Skin warm and dry. Normal skin color. Normal skin turgor. Extremities: No lower extremity edema. No Lacerations. No Rash Neuro: Oriented X 3. No motor deficit. No sensory deficit. Moving all extermities. No slurred speech. Course Course Course Narrative: I discussed with the patient he has a 2 mm ureteral stone. Urine sample pending Urinalysis negative for UTI. Patient received 1 dose of IV Toradol, p.o. tamsulosin and prednisone. Patient instructed to follow-up with Urology. MDM - Male Genitourinary Lab Data Result diagrams: 10/04/21 00:36 10/04/21 00:36 Labs: Lab Results 10/04/21 10/04/21 10/04/21 Range/Units 00:36 00:36 02:39 WBC 8.2 (4.8-10.8) X10*3/uL RBC 5.15 (4.60-5.80) X10*6/uL Hgb 15.3 (14.0-18.0) g/dl Hct 45.0 (42.0-52.0) % MCV 87.4 (80.0-98.0) fL MCH 29.7 (27.0-33.0) pg MCHC 34.0 (31.0-36.0) g/dl RDW 13.0 (11.0-16.0) % Plt Count 150 L (160-400) X10*3/uL MPV 11.5 (9.4-12.4) fL Immature Gran % (Auto) 0.2 (0.0-0.4) % Neut % (Auto) 71.1 (45-73) % Lymph % (Auto) 14.5 L (20-40) % [place] % (Auto) 12.7 H (2-11) % Eos % (Auto) 1.3 (0-4) % Baso % (Auto) 0.2 (0-2) % Lymph # (Auto) 1.2 (1.2-4.9) X10*3/uL [place] # (Auto) 1.0 (0.1-1.2) X10*3/uL Eos # (Auto) 0.1 (0.0-0.4) X10*3/uL Baso # (Auto) 0.0 (0.0-0.2) X10*3/uL Abs Immat Gran (auto) 0.02 (0.00-0.03) X10*3/uL Absolute Neuts (auto) 5.8 (2.0-8.3) x10*3/uL Absolute Nucleated RBC 0.000 (0.0-0.012) X10*3/uL Nucleated RBC % (auto) 0.0 (0.0-0.2) /100WBC Sodium 138 (135-145) mmol/L Potassium 3.8 (3.3-5.1) mmol/L Chloride 104 (96-108) mmol/L Carbon Dioxide 26 (22-29) mmol/L Anion Gap 12 (12-20) BUN 21 H (9-16) mg/dL Creatinine 1.42 H (0.5-1.4) mg/dL Estim Creat Clear Calc 72.7 Estimated GFR 52 Random Glucose 158 H D (60-115) mg/dL Calcium 9.0 (8.4-10.2) mg/dL Total Bilirubin 0.7 (0.0-1.0) mg/dL Direct Bilirubin 0.3 (0.0-0.5) mg/dL AST 41 H (5-37) U/L ALT 46 H (0-40) U/L Alkaline Phosphatase 102 (39-117) U/L Total Protein 7.2 (6.5-8.0) g/dL Albumin 4.2 (3.5-5.0) g/dL Lipase 33 (8-78) U/L Urine Color YELLOW Urine Appearance CLEAR Urine pH 6.5 (5.0-8.0) Ur Specific [place] 1.010 (1.005-1.025) Urine Protein NEG (NEG-TRACE) MG/DL Urine Glucose (UA) NEG (NEG) MG/DL Urine Ketones NEG (NEG) MG/DL Urine Blood 2+ H (NEG) Urine Nitrite NEG (NEG) Ur Leukocyte Esterase NEG (NEG) Imaging Data CT scan - abdomen: Radiologist's impression: FINDINGS: LUNG BASES: Redemonstrated scattered lung nodules, most of which are calcified, as well as calcified mediastinal and hilar lymph nodes favoring sequelae of prior granulomatous disease. Coronary artery calcifications are present.? LIVER, GALLBLADDER, AND BILIARY TREE: The liver is normal in size, shape, and attenuation. No focal hepatic lesion or biliary ductal dilatation is present. The gallbladder is unremarkable with no evidence of radiopaque gallstones, gallbladder wall thickening, or obvious pericholecystic inflammatory changes.? PANCREAS: Unremarkable.? SPLEEN: Mildly enlarged, measuring 15.3 cm in the axial plane.? ADRENAL GLANDS: Unremarkable.? KIDNEYS AND URETERS: There is a 2 mm distal left ureteral calculus in the region of the ureterovesicular junction with mild hydronephrosis and perinephric stranding. Left nephrogram is delayed. No right-sided hydronephrosis. A couple tiny right renal calculi are noted.? BLADDER: Unremarkable.? GASTROINTESTINAL TRACT: Colonic diverticulosis is noted. The small and large bowel are otherwise unremarkable without evidence of obstruction or pericolonic inflammatory change. The appendix is unremarkable. No free fluid or free air is seen.? ABDOMINAL WALL: Small fat-containing right inguinal hernia noted.? LYMPH NODES: Normal. VASCULAR: Scattered atherosclerotic calcifications are noted. PELVIC VISCERA: Unremarkable.? OSSEOUS STRUCTURES: Scattered degenerative changes noted in the spine. CT/CT abdomen pelvis w con IMPRESSION: 1.? Distal left ureteral calculus measuring 2 mm with mild hydronephrosis, perinephric stranding, and delayed left nephrogram. 2.? Tiny right renal calculi without hydronephrosis. 3.? Coronary artery calcifications. Correlation with cardiac risk factors is recommended. Discharge Plan Discharge Clinical Impression: Ureterolithiasis Patient Disposition: Home, Self-Care Instructions: Kidney Stones (ED) Additional Instructions: Please follow-up with your primary care physician tomorrow. If you have any worsening or new symptoms, please return to the emergency room or call 911 Prescriptions: New tamsulosin 0.4 mg capsule 0.4 mg PO DAILY Qty: 10 RF: 0 ketorolac 10 mg tablet 10 mg PO TID PRN (Reason: pain) 5 Days Qty: 10 RF: 0 ondansetron HCl [Zofran] 4 mg tablet 4 mg PO Q6H PRN (Reason: nausea and vomiting) Qty: 10 RF: 0 prednisone 20 mg tablet 20 mg PO DAILY Qty: 4 RF: 0 No Action pantoprazole 20 mg tablet,delayed release (DR/EC) 20 mg PO DAILY 14 Days Qty: 14 RF: 0 cyclobenzaprine 10 mg tablet 10 mg PO TID PRN (Reason: muscle spasm) Qty: 14 RF: 0 meclizine 25 mg tablet 25 mg PO TID PRN (Reason: dizziness) Qty: 30 RF: 0 ofljdochtk-vohqgyfvqpqda-soce 50-325-40 mg tablet 1 tab PO Q6H PRN (Reason: pain) Qty: 20 RF: 0 ondansetron 4 mg tablet,disintegrating 4 mg PO Q8H PRN (Reason: nausea and vomiting) Qty: 20 RF: 0 Referrals: Ricky Reinoso MD [Physician] - 2 days
[2021-10-04 00:41] VITALS: BP 161/95; PULSE 88; RESP 16; O2SAT 98
[2021-10-04 00:41] LABS: MANUAL DIFF FLAG NO
[2021-10-04] MEDS: ondansetron HCL 4 MG/2 ML VIAL IVPUSH ×2 (00:41→02:42)
[2021-10-04 00:42] LABS: Basophils Percent Auto 0.2 % (0-2); Eosinophils Absolute Auto 0.1 X10*3/uL (0.0-0.4); Eosinophils Percent Auto 1.3 % (0-4); Hemoglobin 15.3 g/dl (14.0-18.0); Imm Gran Abs Auto 0.02 X10*3/uL (0.00-0.03); Imm Gran Pct Auto 0.2 % (0.0-0.4); Lymphocytes Absolute Auto 1.2 X10*3/uL (1.2-4.9); Lymphocytes Percent Auto 14.5 % (20-40); Mean Corpuscular Hemoglobin 29.7 pg (27.0-33.0); Mean Corpuscular Volume 87.4 fL (80.0-98.0); Mean Platelet Volume 11.5 fL (9.4-12.4); Monocytes Percent Auto 12.7 % (2-11); Neutrophils Absolute Auto 5.8 x10*3/uL (2.0-8.3); Neutrophils Percent Auto 71.1 % (45-73); Platelet Count 150 X10*3/uL (160-400); Red Blood Count 5.15 X10*6/uL (4.60-5.80); White Blood Count 8.2 X10*3/uL (4.8-10.8)
[2021-10-04 00:58] LABS: Alanine Aminotransferase 46 U/L (0-40); Albumin Level 4.2 g/dL (3.5-5.0); Alkaline Phosphatase 102 U/L (39-117); Anion Gap 12 (12-20); Aspartate Amino Transferase 41 U/L (5-37); Bilirubin Direct 0.3 mg/dL (0.0-0.5); Bilirubin Total 0.7 mg/dL (0.0-1.0); Blood Urea Nitrogen 21 mg/dL (9-16); Carbon Dioxide 26 mmol/L (22-29); Chloride 104 mmol/L (96-108); Creatinine Clr Calc Pharmacy 72.7; Estimated Glomerular Filt Rate 52; Glucose Random 158 mg/dL (60-115); Lipase 33 U/L (8-78); Potassium 3.8 mmol/L (3.3-5.1); Sodium 138 mmol/L (135-145); Total Protein 7.2 g/dL (6.5-8.0)
[2021-10-04] MEDS: iohexoL 350 MG/ML 100 ML INFUS..BTL 85 ML IV (01:32)
[2021-10-04] MEDS: predniSONE 20 MG TABLET PO (02:42)
[2021-10-04] MEDS: Ketorolac Tromethamine 15 MG/ML VIAL 30 MG IVPUSH (02:42)
[2021-10-04] MEDS: Tamsulosin HCL 0.4 MG CAPSULE PO (02:42)
[2021-10-04 02:49] LABS: Appearance Urine CLEAR; Color Urine YELLOW; Glucose Urine UA NEG (NEG); Leukocyte Esterase Urine NEG (NEG); Nitrite Urine NEG (NEG); PH 6.5 (5.0-8.0); UACC Culture Trigger NO; Urine Blood 2+ (NEG); Urine Ketones NEG (NEG); Urine Protein NEG (NEG-TRACE)
[2021-10-04 03:13] LABS: Squamous Epithelial Cell Urine TRACE /LPF; WBC Urine 0 /HPF (0-4)
[2021-10-04 03:36] VITALS: BP 165/109; PULSE 84; RESP 16; TEMP 36.8; O2SAT 99
--- NOTE | 2021-10-04 03:40 | PC.NURSE ---
aware of BP ok with d/c pt home
== END 2021-10-04 03:41 | disposition home or self-care (01) ==
PROVIDERS: Emergency Provider Emergency Medicine
DX: N13.2 Hydronephrosis with renal and ureteral calculous obstruction (principal); E11.9 Type 2 diabetes mellitus without complications; I10 Essential (primary) hypertension
CPT/HCPCS: 36415; 51798; 74177; 80048; 80076; 81001; 83690; 85025; 96374; 96375; 96376; 99284; J1885; J2405; Q9967

== ENCOUNTER 2021-11-11 16:37 | Outpatient (REF) | payer OTHER, SELFPAY ==
[2021-11-11 17:15] LABS: COVID-19 Test Positive (Negative); IDNOW Serial# 9DD0AD1C
== END 2021-11-11 16:38 | disposition home or self-care (01) ==
LOC: HO.ED 16:37
PROVIDERS: Visit Provider Internal Medicine
DX: Z20.822 Contact with and (suspected) exposure to COVID-19 (principal)
CPT/HCPCS: 36415; 87635

== ENCOUNTER 2021-11-27 10:01 | Outpatient (REF) | payer OTHER, SELFPAY ==
[2021-11-27 14:03] LABS: COVID-19 Test Negative (Negative)
== END 2021-11-27 10:02 | disposition home or self-care (01) ==
LOC: HO.LAB 10:01
PROVIDERS: Visit Provider Internal Medicine
DX: Z20.822 Contact with and (suspected) exposure to COVID-19 (principal)
CPT/HCPCS: 87635; C9803

== ENCOUNTER 2022-12-15 03:00 | Emergency (ER) | payer OTHER, SELFPAY ==
--- NOTE | ~2022-12-15 | CT_ITS ---
EXAMINATION: CT ABDOMEN AND PELVIS WITHOUT CONTRAST CLINICAL INFORMATION: Left flank pain, history of stones COMPARISON: 10/04/2021 TECHNIQUE: Multidetector volumetric imaging was performed from the superior aspect of the liver through the pubic symphysis. Sagittal and coronal reformatted images were obtained on the technologist's workstation. This CT examination was performed using dose optimization techniques as appropriate, variously including the following: *Automated exposure control *Adjustment of mA and/or kV according to patient size (this includes techniques or standardized protocols for targeted exams where dose is matched to indication/reason for exam; i.e. extremities or head) *Use of iterative reconstruction technique DLP: 694 mGy-cm FINDINGS: LUNG BASES: Redemonstration of several scattered nodules at the lung bases, at least some of which are calcified. LIVER, GALLBLADDER, AND BILIARY TREE: The liver demonstrates hypoattenuation suspicious for steatosis. No focal hepatic lesion or biliary ductal dilatation is identified. The gallbladder is unremarkable with no evidence of radiopaque gallstones, gallbladder wall thickening, or obvious pericholecystic inflammatory changes. PANCREAS: Unremarkable. SPLEEN: Unremarkable. ADRENAL GLANDS: Unremarkable. KIDNEYS AND URETERS: The kidneys are normal in size, shape, and attenuation. No hydronephrosis, hydroureter, or calculi seen. No perinephric stranding. BLADDER: Unremarkable. GASTROINTESTINAL TRACT: No evidence of bowel obstruction. There is sigmoid colon diverticulosis with focal wall thickening and surrounding stranding, consistent with diverticulitis. No pericolonic abscess or free air is seen. Trace pelvic free fluid. ABDOMINAL WALL: No significant hernia is appreciated. LYMPH NODES: Normal. VASCULAR: Scattered atherosclerotic calcifications. PELVIC VISCERA: Unremarkable. OSSEOUS STRUCTURES: Scattered degenerative changes noted in the spine. CT/CT abdomen pelvis wo IV con IMPRESSION: Diverticulitis of the sigmoid colon. No pericolonic abscess or free air identified. Correlation with recent or followup colonoscopy is advised to exclude an underlying mass lesion.
[2022-12-15 03:09] VITALS: PULSE 104; RESP 18; TEMP 36.3; O2SAT 100; BMI 33.0
[2022-12-15 03:30] LABS: Basophils Percent Auto 0.3 % (0-2); Eosinophils Absolute Auto 0.2 X10*3/uL (0.0-0.4); Eosinophils Percent Auto 1.9 % (0-4); Hematocrit 49.6 % (42.0-52.0); Hemoglobin 16.7 g/dl (14.0-18.0); Imm Gran Abs Auto 0.03 X10*3/uL (0.00-0.03); Imm Gran Pct Auto 0.3 % (0.0-0.4); Lymphocytes Percent Auto 22.4 % (20-40); MANUAL DIFF FLAG NO; Mean Corpuscular HGB Conc 33.7 g/dl (31.0-36.0); Mean Corpuscular Hemoglobin 28.2 pg (27.0-33.0); Mean Corpuscular Volume 83.6 fL (80.0-98.0); Mean Platelet Volume 11.1 fL (9.4-12.4); Monocytes Absolute Auto 0.9 X10*3/uL (0.1-1.2); Monocytes Percent Auto 9.6 % (2-11); Neutrophils Percent Auto 65.5 % (45-73); Platelet Count 185 X10*3/uL (160-400); Red Blood Count 5.93 X10*6/uL (4.60-5.80); Red Cell Distribution Width 13.5 % (11.0-16.0); White Blood Count 9.1 X10*3/uL (4.8-10.8)
[2022-12-15 03:44] LABS: Anion Gap 15 (12-20); Blood Urea Nitrogen 16 mg/dL (9-16); Calcium 9.2 mg/dL (8.4-10.2); Carbon Dioxide 28 mmol/L (22-29); Chloride 98 mmol/L (96-108); Creatinine Clr Calc Pharmacy 94.5; Estimated Glomerular Filt Rate > 60; Glucose Random 162 mg/dL (60-115); Sodium 137 mmol/L (135-145)
[2022-12-15 04:04] LABS: Appearance Urine Clear; Color Urine Yellow; Glucose Urine UA Negative (Negative); Leukocyte Esterase Urine Negative (Negative); Nitrite Urine Negative (Negative); Specific Gravity - Urine 1.015 (1.005-1.025); Urine Blood Negative (Negative); Urine Ketones Negative (Negative); Urine Protein Negative (Neg-Trace)
[2022-12-15 04:07] LABS: Influenza A PCR NEGATIVE (Negative); Influenza B PCR NEGATIVE (Negative); Resp Syncy Virus RNA Qual PCR NEGATIVE (Negative); SARS COV2 PCR INHOUSE NEGATIVE (Negative)
[2022-12-15 04:11] VITALS: BP 127/97; PULSE 98; RESP 16; TEMP 37.3; O2SAT 97
--- NOTE | 2022-12-15 04:53 | ED.GENADULT ---
HPI - General Adult General Chief complaint: Abdominal Pain Stated complaint: abdominal pain Time Seen by Provider: 12/15/22 04:49 Source: patient Mode of arrival: ambulatory Limitations: no limitations History of Present Illness HPI narrative: Patient comes to the emergency room complaining of 2 days of intermittent left lower quadrant pain. Patient states that this the pain that he had when he has kidney stones. Patient denies fever chills, no dysuria or hematuria. Related Data Previous Rx's Medication Instructions Recorded pantoprazole 20 mg tablet,delayed 20 mg PO DAILY 14 days #14 tabs 03/10/21 release txtarrzoiq-eqdkvjijfhepq-fvtavtqd 1 tab PO Q6H PRN pain #20 tabs 08/23/21 50 mg-325 mg-40 mg tablet cyclobenzaprine 10 mg tablet 10 mg PO TID PRN muscle spasm #14 08/23/21 tabs meclizine 25 mg tablet 25 mg PO TID PRN dizziness #30 tabs 08/23/21 ondansetron 4 mg disintegrating 4 mg PO Q8H PRN nausea and 08/23/21 tablet vomiting #20 tabs ketorolac 10 mg tablet 10 mg PO TID PRN pain 5 days #10 10/04/21 tabs ondansetron HCl 4 mg tablet 4 mg PO Q6H PRN nausea and 10/04/21 (Zofran) vomiting #10 tabs prednisone 20 mg tablet 20 mg PO DAILY #4 tabs 10/04/21 tamsulosin 0.4 mg capsule 0.4 mg PO DAILY #10 caps 10/04/21 levofloxacin 500 mg tablet 500 mg PO DAILY #9 tabs 12/15/22 metronidazole 500 mg tablet 500 mg PO BID #19 tabs 12/15/22 oxycodone 5 mg tablet 5 mg PO BID PRN pain #7 tabs 12/15/22 polyethylene glycol 3350 17 17 g PO DAILY PRN laxative effect 12/15/22 gram/dose oral powder (Miralax) #119 grams Allergies Allergy/AdvReac Type Severity Reaction Status Date / Time lisinopril [LISINOPRIL] Allergy Severe ANGIOEDEMA Verified 08/22/21 21:42 spider venom [SPIDER BITES] Allergy Unknown HIVES, Verified 08/22/21 21:42 THROAT CLOSES red (food color) AdvReac Severe ANAPHYLAXIS Verified 08/22/21 21:42 [RED (FOOD COLOR)] SARDINES Allergy Severe ANAPHYLAXIS Uncoded 04/18/21 15:25 Review of Systems Review of Systems: Constitutional : No Weight loss, No Fever, No Chills, No Night Sweats, No Fatigue, No Malaise ENT/Mouth : No Hearing loss, No Ear Pain, No Nasal Congestion, No Sinus Pain, No Hoarseness, No sore throat, No Rhinorrhea, No Swallowing Difficulty Eyes: No Eye Pain, No Swelling, No Redness, No Foreign Body, No Discharge, No Vision Changes Cardiovascular : No Chest Pain, No SOB, No Dyspnea on Exertion, No Orthopnea, No Edema, No Palpitations Respiratory : No Cough, No Sputum, No Wheezing, No Smoke Exposure, No Dyspnea Gastrointestinal : No Nausea, No Vomiting, No Diarrhea, No Constipation, complaining of left lower quadrant pain and left flank pain Genitourinary : no irregular bleeding, No Dysuria, No Urinary Frequency, No Hematuria, No Urinary Incontinence, No Urgency, No Urinary Flow Changes, No Hesitancy Musculoskeletal : No joint pain, No Myalgias, No Joint Swelling Skin : No Skin Lesions, No rash Neuro : No Weakness, No Numbness, No Paresthesias, No Loss of Consciousness, No Dizziness, No Headache Psych : No Anxiety/Panic, No Depression, No SI/HI/AH/VH, No Social Issues, Heme/Lymph: No Bruising, No Bleeding,No Lymphadenopathy Endocrine : No Polyuria, No Polydipsia, No Temperature Intolerance [facility] Past Medical History Medical History Diabetes HTN (hypertension) Social History Social History (Updated 08/22/21 @ 22:27 by Jovita Olivera DO) Patient Tobacco Use Status: Tobacco use Unknown Advance Directives: No Physical Exam ED Vital Signs: Vital Signs - 24 hr 12/15/22 03:09 12/15/22 04:11 12/15/22 06:00 Temperature 97.4 F 99.1 F 98.8 F Pulse Rate 104 H 98 91 Respiratory Rate 18 16 14 Blood Pressure 127/97 H 141/82 H Pulse Oximetry 100 97 95 Oxygen Delivery Method Room Air Room Air Room Air BMI result Body Mass Index 33.0 Course Course Course Narrative: -patient has had kidney stones in the past, the same feels the same. -patient given IV ketorolac and Zofran -CT scan of the abdomen pelvis pending -patient likely passing another stone Medications Administered Discontinued Medications Generic Name Dose Route Start Last Admin Trade Name Jcarlos PRN Reason Stop Dose Admin Ketorolac Tromethamine 30 mg 12/15/22 04:51 12/15/22 05:17 Ketorolac Tromethamine 30 Mg/Ml Vial IVPUSH 12/15/22 04:52 30 mg ONCE ONE Administration Ondansetron HCl 4 mg 12/15/22 04:51 12/15/22 05:18 Ondansetron Hcl 4 Mg/2 Ml Vial IVPUSH 12/15/22 04:52 4 mg ONCE ONE Administration Medical Decision Making Medical Decision Making [facility] Narrative: -patient's white blood cell count within normal limits. -CT scan shows diverticulitis, no abscess, no free air -patient was given IV ketorolac, did help initially but the pain is returning. -I discussed with the patient that we can admit him for pain control and IV medications. Patient respectfully declined, patient prefers to go home. Patient will be going home with pain medications and his antibiotics, 1st dose given in the emergency room, levofloxacin and metronidazole. Differential Diagnosis Differential Diagnoses: The differential diagnosis associated with the presentation includes (Diverticulitis, diverticulosis, ureterolithiasis) Admission/Observation Consideration of admission/observation: Escalation of care including admission/observation considered (I considered admitting the patient for pain control, patient prefers to go home) Lab Data [facility] Lab Attestation statement: I reviewed the patient's lab results. 12/15/22 03:25 12/15/22 03:25 Labs: Lab Results 12/15/22 12/15/22 12/15/22 Range/Units 03:25 03:25 03:25 WBC 9.1 (4.8-10.8) X10*3/uL RBC 5.93 H (4.60-5.80) X10*6/uL Hgb 16.7 (14.0-18.0) g/dl Hct 49.6 (42.0-52.0) % MCV 83.6 (80.0-98.0) fL MCH 28.2 (27.0-33.0) pg MCHC 33.7 (31.0-36.0) g/dl RDW 13.5 (11.0-16.0) % Plt Count 185 (160-400) X10*3/uL MPV 11.1 (9.4-12.4) fL Immature Gran % (Auto) 0.3 (0.0-0.4) % Neut % (Auto) 65.5 (45-73) % Lymph % (Auto) 22.4 (20-40) % [place] % (Auto) 9.6 (2-11) % Eos % (Auto) 1.9 (0-4) % Baso % (Auto) 0.3 (0-2) % Lymph # (Auto) 2.0 (1.2-4.9) X10*3/uL [place] # (Auto) 0.9 (0.1-1.2) X10*3/uL Eos # (Auto) 0.2 (0.0-0.4) X10*3/uL Baso # (Auto) 0.0 (0.0-0.2) X10*3/uL Abs Immat Gran (auto) 0.03 (0.00-0.03) X10*3/uL Absolute Neuts (auto) 6.0 (2.0-8.3) x10*3/uL Absolute Nucleated RBC 0.000 (0.0-0.012) X10*3/uL Nucleated RBC % (auto) 0.0 (0.0-0.2) /100WBC Sodium 137 (135-145) mmol/L Potassium 4.0 (3.3-5.1) mmol/L Chloride 98 (96-108) mmol/L Carbon Dioxide 28 (22-29) mmol/L Anion Gap 15 (12-20) BUN 16 (9-16) mg/dL Creatinine 1.08 (0.5-1.4) mg/dL Estim Creat Clear Calc 94.5 Estimated GFR > 60 Random Glucose 162 H (60-115) mg/dL Calcium 9.2 (8.4-10.2) mg/dL Urine Color Urine Appearance Urine pH (5.0-9.0) Ur Specific [place] (1.005-1.025) Urine Protein (Neg-Trace) mg/dL Urine Glucose (UA) (Negative) mg/dL Urine Ketones (Negative) mg/dL Urine Blood (Negative) Urine Nitrite (Negative) Ur Leukocyte Esterase (Negative) Influenza Type A (PCR) NEGATIVE (Negative) Influenza Type B (PCR) NEGATIVE (Negative) RSV RNA Qual (PCR) NEGATIVE (Negative) SARS-CoV-2 RNA (RT-PCR) NEGATIVE (Negative) 12/15/22 Range/Units 03:34 WBC (4.8-10.8) X10*3/uL RBC (4.60-5.80) X10*6/uL Hgb (14.0-18.0) g/dl Hct (42.0-52.0) % MCV (80.0-98.0) fL MCH (27.0-33.0) pg MCHC (31.0-36.0) g/dl RDW (11.0-16.0) % Plt Count (160-400) X10*3/uL MPV (9.4-12.4) fL Immature Gran % (Auto) (0.0-0.4) % Neut % (Auto) (45-73) % Lymph % (Auto) (20-40) % [place] % (Auto) (2-11) % Eos % (Auto) (0-4) % Baso % (Auto) (0-2) % Lymph # (Auto) (1.2-4.9) X10*3/uL [place] # (Auto) (0.1-1.2) X10*3/uL Eos # (Auto) (0.0-0.4) X10*3/uL Baso # (Auto) (0.0-0.2) X10*3/uL Abs Immat Gran (auto) (0.00-0.03) X10*3/uL Absolute Neuts (auto) (2.0-8.3) x10*3/uL Absolute Nucleated RBC (0.0-0.012) X10*3/uL Nucleated RBC % (auto) (0.0-0.2) /100WBC Sodium (135-145) mmol/L Potassium (3.3-5.1) mmol/L Chloride (96-108) mmol/L Carbon Dioxide (22-29) mmol/L Anion Gap (12-20) BUN (9-16) mg/dL Creatinine (0.5-1.4) mg/dL Estim Creat Clear Calc Estimated GFR Random Glucose (60-115) mg/dL Calcium (8.4-10.2) mg/dL Urine Color Yellow Urine Appearance Clear Urine pH 6.0 (5.0-9.0) Ur Specific [place] 1.015 (1.005-1.025) Urine Protein Negative (Neg-Trace) mg/dL Urine Glucose (UA) Negative (Negative) mg/dL Urine Ketones Negative (Negative) mg/dL Urine Blood Negative (Negative) Urine Nitrite Negative (Negative) Ur Leukocyte Esterase Negative (Negative) Influenza Type A (PCR) (Negative) Influenza Type B (PCR) (Negative) RSV RNA Qual (PCR) (Negative) SARS-CoV-2 RNA (RT-PCR) (Negative) Independent Interpretation I performed an independent interpretation of an: CT Scan (Interpretation of CT scan, no obstruction, no kidney stones) Radiology Impression Discussion of test interpretation with radiology: I have reviewed the radiologist's reading. Radiologist Impression: FINDINGS: LUNG BASES: Redemonstration of several scattered nodules at the lung bases, at least some of which are calcified.? LIVER, GALLBLADDER, AND BILIARY TREE: The liver demonstrates hypoattenuation suspicious for steatosis. No focal hepatic lesion or biliary ductal dilatation is identified. The gallbladder is unremarkable with no evidence of radiopaque gallstones, gallbladder wall thickening, or obvious pericholecystic inflammatory changes.? PANCREAS: Unremarkable.? SPLEEN: Unremarkable.? ADRENAL GLANDS: Unremarkable.? KIDNEYS AND URETERS: The kidneys are normal in size, shape, and attenuation. No hydronephrosis, hydroureter, or calculi seen. No perinephric stranding. ? BLADDER: Unremarkable.? GASTROINTESTINAL TRACT: No evidence of bowel obstruction. There is sigmoid colon diverticulosis with focal wall thickening and surrounding stranding, consistent with diverticulitis. No pericolonic abscess or free air is seen. Trace pelvic free fluid. ABDOMINAL WALL: No significant hernia is appreciated.? LYMPH NODES: Normal. VASCULAR: Scattered atherosclerotic calcifications. PELVIC VISCERA: Unremarkable.? OSSEOUS STRUCTURES: Scattered degenerative changes noted in the spine. CT/CT abdomen pelvis wo IV con IMPRESSION: Diverticulitis of the sigmoid colon. No pericolonic abscess or free air identified. Correlation with recent or followup colonoscopy is advised to exclude an underlying mass lesion. ? Discharge Plan Discharge Clinical Impression: Diverticulitis Patient Disposition: Home, Self-Care Instructions: Diverticulitis (ED) Additional Instructions: Please follow-up with your primary care physician tomorrow. If you have any worsening or new symptoms, please return to the emergency room or call 911 Prescriptions: New levofloxacin 500 mg tablet 500 mg PO DAILY Qty: 9 0RF metronidazole 500 mg tablet 500 mg PO BID Qty: 19 0RF oxycodone 5 mg tablet 5 mg PO BID PRN (Reason: pain) Qty: 7 0RF Rx Instructions: Partial Fill upon patient request. polyethylene glycol 3350 [Miralax] 17 gram/dose powder 17 g PO DAILY PRN (Reason: laxative effect) Qty: 119 0RF No Action pantoprazole 20 mg tablet,delayed release (DR/EC) 20 mg PO DAILY 14 Days Qty: 14 0RF cyclobenzaprine 10 mg tablet 10 mg PO TID PRN (Reason: muscle spasm) Qty: 14 0RF meclizine 25 mg tablet 25 mg PO TID PRN (Reason: dizziness) Qty: 30 0RF pxuhlswdoq-uopdoqxqzaqzb-mywn 50-325-40 mg tablet 1 tab PO Q6H PRN (Reason: pain) Qty: 20 0RF ondansetron 4 mg tablet,disintegrating 4 mg PO Q8H PRN (Reason: nausea and vomiting) Qty: 20 0RF tamsulosin 0.4 mg capsule 0.4 mg PO DAILY Qty: 10 0RF ketorolac 10 mg tablet 10 mg PO TID PRN (Reason: pain) 5 Days Qty: 10 0RF Rx Instructions: Do not take ibuprofen/Aleve with his medication, only use Tylenol if needed ondansetron HCl [Zofran] 4 mg tablet 4 mg PO Q6H PRN (Reason: nausea and vomiting) Qty: 10 0RF prednisone 20 mg tablet 20 mg PO DAILY Qty: 4 0RF
[2022-12-15] MEDS: Ketorolac Tromethamine 30 MG/ML VIAL IVPUSH (05:17)
[2022-12-15] MEDS: ondansetron HCL 4 MG/2 ML VIAL IVPUSH (05:18)
[2022-12-15 06:00] VITALS: BP 141/82; PULSE 91; RESP 14; TEMP 37.1; O2SAT 95
[2022-12-15] MEDS: levoFLOXacin 500 MG TABLET PO (07:02)
[2022-12-15] MEDS: metroNIDAZOLE 500 MG TABLET PO (07:02)
== END 2022-12-15 07:07 | disposition home or self-care (01) ==
PROVIDERS: Emergency Provider Emergency Medicine
DX: K57.32 Diverticulitis of large intestine without perforation or abscess without bleeding (principal); E11.9 Type 2 diabetes mellitus without complications; I10 Essential (primary) hypertension; Z79.899 Other long term (current) drug therapy; Z20.822 Contact with and (suspected) exposure to COVID-19; Z20.828 Contact with and (suspected) exposure to other viral communicable diseases
CPT/HCPCS: 0241U; 36415; 74176; 80048; 81003; 85025; 96374; 96375; 99284; J1885; J2405

== ENCOUNTER 2023-09-15 13:00 | Outpatient (AMB) | payer OTHER, SELFPAY ==
--- NOTE | 2023-09-15 13:03 | MHC.OFFVIS ---
Intake Vital Signs 09/15/23 13:08 09/15/23 13:35 Height 5 ft 10 in Weight 233 lb 14.314 oz BMI 33.6 BP 155/100 H 157/84 H Blood Pressure Location Lt brachial Position Sitting Pulse 90 88 Intake Visit Reasons: Colonoscopy Screening Intake Note: Jason presents in the office as a colonoscopy screening. CC: He states that he has constipation and the other day there was a little blood but it could be due from the constipation. Media Marketing Coordinator Required: No Allergies lisinopril [LISINOPRIL] Allergy (Severe, Verified 09/15/23 13:09) ANGIOEDEMA spider venom [SPIDER BITES] Allergy (Unknown, Verified 09/15/23 13:09) HIVES, THROAT CLOSES red (food color) [RED (FOOD COLOR)] Adverse Reaction (Severe, Verified 09/15/23 13:09) ANAPHYLAXIS SARDINES Allergy (Severe, Uncoded 09/15/23 13:09) ANAPHYLAXIS Medication List - Last Reconciled 09/15/23 by Angelique Aldana PA-C hydrochlorothiazide 12.5 mg PO DAILY ketorolac 10 mg PO TID PRN levofloxacin 500 mg PO DAILY meclizine 25 mg PO TID PRN metronidazole 500 mg PO BID tamsulosin 0.4 mg PO DAILY HPI HPI Comments History of Present Illness Details 53-year-old male referred for screening colonoscopy-he is eager to have procedure done His Family hx is unknown Bowels - normal He is requesting prostate testing- he is worried about his health He c/o L side CP-he says that seems to be more frequent now, he is not sure if it is related to anxiey- shortness of breath however not sure if associated-to the anxiety. At times may have palpitations No headaches, dizziness - He has not seen his PCP -[facility] for hypertension No N/V/D-abdominal pain, fever or chills PFSH Medical History (Updated 09/20/23 @ 10:05 by Angelique Aldana PA-C) Chest pain Diabetes HTN (hypertension) Surgical History Hx of colonoscopy Social History (Updated 09/15/23 @ 13:25 by Angelique Aldana PA-C) Household Members Other:: - daughter Patient Tobacco Use Status: Tobacco use Unknown e-Cigarette/Vaping Use: Never Used Current occupational status: employed Current occupation: [employer] Review of Systems Const All systems reviewed & are unremarkable except as noted in HPI and below Card Denies chest pain, Reports chest pain with activity (left- couple minutes - no other sx) and Reports dyspnea on exertion Resp Reports dyspnea on exertion Psych Reports anxiety Physical Exam Vital Signs: Last Vital Signs Pulse 88 09/15/23 13:35 BP 157/84 H 09/15/23 13:35 BMI result Body Mass Index 33.6 Const General: cooperative, healthy appearing, comfortable and no acute distress Orientation/consciousness: patient oriented x3 Limitations: no limitations Eyes Sclerae: sclerae normal Resp Effort & Inspection: normal respiratory effort and able to speak in complete sentences Auscultation: clear to auscultation bilaterally, no rales, no rhonchi and no wheezes Neuro General: patient oriented x3 Results Reviewed Results Reviewed: Colonoscopy 2016 Dr. Muñiz Diverticulosis, hemorrhoids likely cause of rectal Assessment & Plan Assessment & Plan (1) Encounter for screening colonoscopy: Comment: Ref to cardiology-risk stratification- Intermittent chest pain, shortness of breath, however he does admit anxiety C.P HTN- F/u pcp Code(s): Z12.11 - Encounter for screening for malignant neoplasm of colon Plan: Will await further workup before scheduling procedure (2) Chest pain: Comment: Intermittent left-sided chest pain, question palpitations, p/e-regular heart rate Code(s): R07.9 - Chest pain, unspecified Plan: Any symptoms, go to ED Will refer to Cardiology before scheduling colonoscopy Follow-up with PCP a sap (3) HTN (hypertension): Code(s): I10 - Essential (primary) hypertension Plan Schedule colonoscopy after cardiology eval- Patient aware No major barriers to understanding were identified Orders: Orders Colonoscopy - GI Use Only 09/15/23 Z12.11 - Encounter for screening for malignant neoplasm of colon Complete Blood Count Auto Diff 09/16/23 I10 - Essential (primary) hypertension, R07.9 - Chest pain, unspecified, Z12.11 - Encounter for screening for malignant neoplasm of colon Comprehensive Met. Panel 09/16/23 K58.9 - Irritable bowel syndrome without diarrhea Prostate Specific Antigen Scr 09/16/23 Z12.11 - Encounter for screening for malignant neoplasm of colon Hemoglobin A1c 09/16/23 I10 - Essential (primary) hypertension, R07.9 - Chest pain, unspecified, Z12.11 - Encounter for screening for malignant neoplasm of colon Lipid Panel 09/16/23 K76.0 - Fatty (change of) liver, not elsewhere classified Referrals Cardiology Referral I10 - Essential (primary) hypertension, R07.9 - Chest pain, unspecified Medications: New sod picosulf-mag ox-citric ac 10 mg-3.5 gram- 12 gram/160 mL (Clenpiq) take first dose at 5-9PM evening before colonoscopy; 2nd dose the next day approximately 5 hrs before colonoscopy 160 mL PO DAILY 2 doses 320 mL 0RF calcium polycarbophil (Fiber Laxative (calcium polycarbophil)) 1,250 mg (2 x 625 mg) PO DAILY 30 days 60 tabs 3RF Patient Instructions: 53-year-old male a known family history referred for screening colonoscopy presents with intermittent left-sided chest pain - Repeat symptoms, go to ED Will refer to Cardiology before scheduling colonoscopy-he understands he must be cleared. Follow-up with PCP a sap Encouraged to call with any questions or concerns No major barriers to understanding were identified Coding Level of Care Code New Pt Level 4 (67042) Diagnoses Encounter for screening colonoscopy Z12.11 Chest pain R07.9 HTN (hypertension) I10 Time Spent (min) 35 Comment Referred to cardiology
[2023-09-15 13:08] VITALS: BP 155/100; PULSE 90; BMI 33.6
[2023-09-15 13:35] VITALS: BP 157/84; PULSE 88
== END 2023-09-15 14:44 | disposition home or self-care (01) ==
PROVIDERS: Visit Provider Physician Assistant
DX: Z12.11 Encounter for screening for malignant neoplasm of colon (principal); R07.9 Chest pain, unspecified; I10 Essential (primary) hypertension; Z01.818 Encounter for other preprocedural examination
CPT/HCPCS: 99204

== ENCOUNTER → 2023-09-15 13:00 | Outpatient (BNVA) | payer OTHER, SELFPAY | PROVIDERS: Visit Provider Physician Assistant ==

== ENCOUNTER 2023-09-16 06:49 | Outpatient (REF) | payer OTHER, SELFPAY ==
[2023-09-16 06:58] LABS: MANUAL DIFF FLAG NO
[2023-09-16 07:12] LABS: Basophils Percent Auto 0.4 % (0-2); Eosinophils Absolute Auto 0.2 X10*3/uL (0.0-0.4); Imm Gran Abs Auto 0.01 X10*3/uL (0.00-0.03); Imm Gran Pct Auto 0.2 % (0.0-0.4); Lymphocytes Percent Auto 35.1 % (20-40); Mean Corpuscular Hemoglobin 29.2 pg (27.0-33.0); Mean Corpuscular Volume 85.8 fL (80.0-98.0); Mean Platelet Volume 11.1 fL (9.4-12.4); Monocytes Absolute Auto 0.5 X10*3/uL (0.1-1.2); Neutrophils Percent Auto 53.3 % (45-73); Platelet Count 175 X10*3/uL (160-400); Red Blood Count 5.83 X10*6/uL (4.60-5.80); Red Cell Distribution Width 13.2 % (11.0-16.0); White Blood Count 5.6 X10*3/uL (4.8-10.8)
[2023-09-16 07:20] LABS: Estimated Average Glucose 137 mg/dL; Hemoglobin A1c % 6.4 % (<6.0)
[2023-09-16 07:40] LABS: Alanine Aminotransferase 70 U/L (0-40); Albumin Level 4.3 g/dL (3.5-5.0); Alkaline Phosphatase 113 U/L (39-117); Anion Gap 12 (12-20); Aspartate Amino Transferase 68 U/L (5-37); Bilirubin Total 0.5 mg/dL (0.0-1.0); Blood Urea Nitrogen 15 mg/dL (9-16); Calcium 9.4 mg/dL (8.4-10.2); Carbon Dioxide 30 mmol/L (22-29); Chloride 101 mmol/L (96-108); Cholesterol 211 mg/dL (<200); Estimated Glomerular Filt Rate > 60; Glucose Random 159 mg/dL (60-115); HDL Cholesterol 39 mg/dL (>40); LDL Cholesterol Calculated 151 mg/dL (<100); Potassium 3.7 mmol/L (3.3-5.1); Sodium 139 mmol/L (135-145); Total Protein 7.8 g/dL (6.5-8.0); Triglycerides 107 mg/dL (<150)
[2023-09-16 08:01] LABS: Prostate Specific Antigen Scr 1.11 ng/mL (<0.05-4.0)
== END 2023-09-16 06:50 | disposition home or self-care (01) ==
LOC: HO.LAB 06:49
PROVIDERS: Visit Provider Physician Assistant
DX: Z12.5 Encounter for screening for malignant neoplasm of prostate (principal); K58.9 Irritable bowel syndrome, unspecified; I10 Essential (primary) hypertension; R07.9 Chest pain, unspecified; K76.0 Fatty (change of) liver, not elsewhere classified
CPT/HCPCS: 36415; 80053; 80061; 83036; 84153; 85025

== ENCOUNTER 2023-09-22 19:48 | Emergency (ER) | payer OTHER, SELFPAY ==
--- NOTE | 2023-09-22 19:52 | ECG_ITS ---
Test Reason : CHEST TIGHTNESS Blood Pressure : / mmHG Vent. Rate : 092 BPM Atrial Rate : 092 BPM P-R Int : 162 ms QRS Dur : 100 ms QT Int : 360 ms P-R-T Axes : 029 034 042 degrees QTc Int : 445 ms Normal sinus rhythm Nonspecific T wave abnormality Abnormal ECG When compared with ECG of 25-JUL-2021 14:43, No significant change was found Referred By: Generic ED Physician Electronically Signed By:CHARLY HALL MD
[2023-09-22 19:56] VITALS: BP 163/95; PULSE 87; RESP 18; TEMP 36.7; O2SAT 99; BMI 33.9
[2023-09-22 20:19] LABS: MANUAL DIFF FLAG NO
[2023-09-22 20:20] LABS: Basophils Percent Auto 0.3 % (0-2); Eosinophils Absolute Auto 0.2 X10*3/uL (0.0-0.4); Eosinophils Percent Auto 2.5 % (0-4); Hematocrit 47.7 % (42.0-52.0); Hemoglobin 16.4 g/dl (14.0-18.0); Imm Gran Abs Auto 0.01 X10*3/uL (0.00-0.03); Imm Gran Pct Auto 0.2 % (0.0-0.4); Lymphocytes Percent Auto 33.5 % (20-40); Mean Corpuscular HGB Conc 34.4 g/dl (31.0-36.0); Mean Corpuscular Hemoglobin 29.4 pg (27.0-33.0); Mean Corpuscular Volume 85.6 fL (80.0-98.0); Mean Platelet Volume 10.7 fL (9.4-12.4); Monocytes Absolute Auto 0.6 X10*3/uL (0.1-1.2); Monocytes Percent Auto 9.7 % (2-11); Neutrophils Absolute Auto 3.3 x10*3/uL (2.0-8.3); Neutrophils Percent Auto 53.8 % (45-73); Platelet Count 162 X10*3/uL (160-400); Red Blood Count 5.57 X10*6/uL (4.60-5.80); Red Cell Distribution Width 13.1 % (11.0-16.0); White Blood Count 6.1 X10*3/uL (4.8-10.8)
[2023-09-22 20:34] LABS: Alanine Aminotransferase 56 U/L (0-40); Albumin Level 4.2 g/dL (3.5-5.0); Alkaline Phosphatase 107 U/L (39-117); Anion Gap 14 (12-20); Aspartate Amino Transferase 59 U/L (5-37); Bilirubin Total 0.8 mg/dL (0.0-1.0); Blood Urea Nitrogen 16 mg/dL (9-16); Calcium 9.2 mg/dL (8.4-10.2); Carbon Dioxide 29 mmol/L (22-29); Chloride 98 mmol/L (96-108); Creatinine Clr Calc Pharmacy 95.6; Estimated Glomerular Filt Rate > 60; Glucose Random 205 mg/dL (60-115); Potassium 3.6 mmol/L (3.3-5.1); Sodium 137 mmol/L (135-145); Total Protein 7.8 g/dL (6.5-8.0)
[2023-09-22 20:44] LABS: Troponin-I High Sensitivity < 2.7 ng/L (<3.5-35.0)
[2023-09-22 22:00] VITALS: BP 157/100; PULSE 89; RESP 15; TEMP 36.7; O2SAT 97
--- NOTE | 2023-09-22 22:15 | ED_ITS ---
HPI - Chest Pain General Chief Complaint: Chest Pain Stated Complaint: chest tightness, high bp Time Seen by Provider: 09/22/23 21:56 Source: patient Mode of arrival: ambulatory Limitations: no limitations History of Present Illness HPI narrative: 53 yo male with PMH of HTN, chronic headaches here with c/o chronic headache has had CTA in past during episodes - today felt some slight chest tightness at 5pm at rest. He has headaches every day that do not improve. he was started on amlodipine 5mg Wednesday by PCP but they never called it in so he just started it today. He used to be on lisinopril but had angioedema with it. MD complaint: chest pain Onset (ago): hour(s) (5pm today ) Timing of current episode: now resolved Prior episodes: Yes Onset: during rest Pain location: substernal Pain radiation: left arm Severity: moderate Quality: tightness Relieving factors: nothing Exacerbating factors: nothing Context: other (HTN, also headaches daily occurrence for 2 months straight) Associated symptoms: nausea and dyspnea Treatment prior to arrival: other (took his amlodipine tonight. ) Related Data Home Medications Medication Instructions Recorded Confirmed hydrochlorothiazide 12.5 mg capsule 12.5 mg PO DAILY 09/15/23 Previous Rx's Medication Instructions Recorded calcium polycarbophil 625 mg 1,250 mg (2 x 625 mg) PO DAILY 30 09/15/23 tablet (Fiber Laxative (calcium days #60 tabs polycarbophil)) sod picosulf 10 mg-magnes 3.5 160 ml PO DAILY 2 doses #320 mL 09/15/23 gram-citric 12 gram/160 mL oral solution (Clenpiq) Allergies Allergy/AdvReac Type Severity Reaction Status Date / Time lisinopril [LISINOPRIL] Allergy Severe ANGIOEDEMA Verified 09/15/23 13:09 spider venom [SPIDER BITES] Allergy Unknown HIVES, Verified 09/15/23 13:09 THROAT CLOSES red (food color) AdvReac Severe ANAPHYLAXIS Verified 09/15/23 13:09 [RED (FOOD COLOR)] [place]ARD[place] Allergy Severe ANAPHYLAXIS Uncoded 09/15/23 13:09 Review of Systems 2 Review of Systems: Constitutional : No Fever, No Chills, No Fatigue ENT/Mouth : No sore throat, No Rhinorrhea Eyes: No Eye Pain, No Swelling, No Redness Cardiovascular : pos Chest Pain, pos SOB, No Dyspnea on Exertion Respiratory : No Cough, No Sputum Gastrointestinal : No Nausea, No Vomiting, No Diarrhea, No abdominal Pain Genitourinary : No Dysuria, No Urinary Frequency, No Hematuria, Musculoskeletal : No joint pain, No Myalgias, No Joint Swelling Skin : No Skin Lesions, No rash Neuro : No Weakness, No Numbness, No Dizziness, positive Headache Psych : No Anxiety/Panic, No Depression Heme/Lymph: No Bruising, No Bleeding,No Lymphadenopathy Endocrine : No Polyuria, No Polydipsia All other systems reviewed and are negative [facility]LY [facility] Past Medical History Attestation statement: The following information was validated with the patient. Medical History Chest pain Diabetes HTN (hypertension) Surgical History Hx of colonoscopy Social History Social History Household Members Other:: - daughter Patient Tobacco Use Status: Tobacco use Unknown Smoked in Last 30 Days: No e-Cigarette/Vaping Use: Never Used Advance Directives: No Advance Directives Information Provided: Yes Current occupational status: employed Current occupation: [employer] Physical Exam 2 Vital Signs: Vital Signs: Last Vital Signs Temp 98.0 F 09/22/23 22:00 Pulse 82 09/22/23 22:25 Resp 18 09/22/23 22:25 BP 143/86 H 09/22/23 22:25 Pulse Ox 97 09/22/23 22:25 O2 Del Method Room Air 09/22/23 22:25 BMI result Body Mass Index 33.9 Appearance: Alert. Oriented X3. No acute distress. Eyes: Pupils equal, round and reactive to light. ENT: Pharynx normal. Neck: Normal inspection. Neck supple. CVS: Normal heart rate and rhythm. Pulses normal. Respiratory: No respiratory distress. Breath sounds normal. Abdomen: Soft and nontender. Skin: Skin warm and dry. Normal skin color. Normal skin turgor. Extremities: No lower extremity edema. No calf ttp Neuro: Oriented X 3. No motor deficit. No sensory deficit. Medications Administered Discontinued Medications Generic Name Dose Route Start Last Admin Trade Name Freq PRN Reason Stop Dose Admin Acetaminophen 975 mg 09/22/23 23:28 09/22/23 23:34 Acetaminophen 325 Mg Tablet PO 09/22/23 23:29 975 mg ONCE ONE Administration Acetaminophen/Butalbital/Caffeine 1 tab 09/22/23 22:11 09/22/23 22:26 Butalb/Acetamin/Caff 50/325/40 Tablet PO 09/22/23 22:12 Not Given ONCE ONE Ondansetron HCl 4 mg 09/22/23 22:11 09/22/23 22:27 Ondansetron Odt 4 Mg Tab.Rapdis TRANSLINGU 09/22/23 22:12 Not Given ONCE ONE Oxycodone HCl 5 mg 09/22/23 22:11 09/22/23 22:27 Oxycodone Hcl Immed Release 5 Mg Tablet PO 09/22/23 22:12 Not Given ONCE ONE Medical Decision Making Medical Decision Making [facility] Narrative: 53 yo male with HTN, chronic headaches has had CTA back in 2020 for headache and neck pain, just started on amlodipine today 5mg by PCP for elevated BP - comes in again with typical L sided headache down to neck that is daily and will not go away. No other symptoms - given duration and history not consistent with SAH, has had imaging before no mass seen but should have MRI with PCP. He has BPs 157/100 but normal neuro exam suspect this is pain related. At this time also c/o chest pain - no hypoxia or signs of DVT to suggest VTE will obtain troponin x 2. Differential Diagnosis Differential Diagnoses: The differential diagnosis associated with the presentation includes migraine, cluster headache, HTN, tension headache, atypical chest pain Admission/Observation Consideration of admission/observation: Escalation of care including admission/observation considered trop flat x 2 unchanged EKG and BP improved Lab Data [facility] Lab Attestation statement: I reviewed the patient's lab results. 09/22/23 20:09 09/22/23 20:09 Labs: Lab Results 09/22/23 09/22/23 Range/Units 20:09 23:08 WBC 6.1 (4.8-10.8) X10*3/uL RBC 5.57 (4.60-5.80) X10*6/uL Hgb 16.4 (14.0-18.0) g/dl Hct 47.7 (42.0-52.0) % MCV 85.6 (80.0-98.0) fL MCH 29.4 (27.0-33.0) pg MCHC 34.4 (31.0-36.0) g/dl RDW 13.1 (11.0-16.0) % Plt Count 162 (160-400) X10*3/uL MPV 10.7 (9.4-12.4) fL Immature Gran % (Auto) 0.2 (0.0-0.4) % Neut % (Auto) 53.8 (45-73) % Lymph % (Auto) 33.5 (20-40) % [place] % (Auto) 9.7 (2-11) % Eos % (Auto) 2.5 (0-4) % Baso % (Auto) 0.3 (0-2) % Lymph # (Auto) 2.0 (1.2-4.9) X10*3/uL [place] # (Auto) 0.6 (0.1-1.2) X10*3/uL Eos # (Auto) 0.2 (0.0-0.4) X10*3/uL Baso # (Auto) 0.0 (0.0-0.2) X10*3/uL Abs Immat Gran (auto) 0.01 (0.00-0.03) X10*3/uL Absolute Neuts (auto) 3.3 (2.0-8.3) x10*3/uL Absolute Nucleated RBC 0.000 (0.0-0.012) X10*3/uL Nucleated RBC % (auto) 0.0 (0.0-0.2) /100WBC Sodium 137 (135-145) mmol/L Potassium 3.6 (3.3-5.1) mmol/L Chloride 98 (96-108) mmol/L Carbon Dioxide 29 (22-29) mmol/L Anion Gap 14 (12-20) BUN 16 (9-16) mg/dL Creatinine 1.07 (0.5-1.4) mg/dL Estim Creat Clear Calc 95.6 Estimated GFR > 60 Random Glucose 205 H (60-115) mg/dL Calcium 9.2 (8.4-10.2) mg/dL Total Bilirubin 0.8 (0.0-1.0) mg/dL AST 59 H (5-37) U/L ALT 56 H (0-40) U/L Alkaline Phosphatase 107 (39-117) U/L Troponin I High Sens < 2.7 < 2.7 (<3.5-35.0) ng/L Total Protein 7.8 (6.5-8.0) g/dL Albumin 4.2 (3.5-5.0) g/dL Independent Interpretation I performed an independent interpretation of an: EKG Interpretation: Rate: 92 Rhythm: NSR [place]: normal Normal P waves. Normal KAUSHAL. Normal QRS complex. ST T wave : q wave lead III, nonspecific ST T wave changes inf leads qTC: normal prior studies: no change from priors The study has been interpreted contemporaneously by me. . Independent Historian Clinical information obtained from an independent historian. History obtained from or confirmed by: Spouse External Record Review External record reviewed: Inpatient record Tests considered The following testing was considered but not selected: CT scan but has had imaging in the past. Prescription Management I considered prescription management with: Other Discharge Plan Discharge Clinical Impression: Atypical chest pain Chronic headache Qualifiers: Headache type: unspecified Intractability: not intractable Qualified Code(s): R 51.9 - Headache, unspecified Patient Disposition: Home, Self-Care Instructions: Chest Pain (ED), Acute Headache (ED) Additional Instructions: return for worsening symptoms, weakness, vision changes, different or more severe headache or any other concerns. continue your blood pressure medication and follow up with PCP. You have had normal angio study of your brain in past no aneurysms seen. given headaches and duration would get outpatient MRI and follow up with Neurology Prescriptions: No Action hydrochlorothiazide 12.5 mg capsule 12.5 mg PO DAILY calcium polycarbophil [Fiber Laxative (ca polycarbo)] 625 mg tablet 1,250 mg PO DAILY 30 Days Qty: 60 3RF Clenpiq 10 mg-3.5 gram- 12 gram/160 mL solution 160 ml PO DAILY 0 Days Qty: 320 0RF Rx Instructions: take first dose at 5-9PM evening before colonoscopy; 2nd dose the next day approximately 5 hrs before colonoscopy Referrals: Lesli Nevarez MD [Physician] - (call to schedule appointment Neurologist) Stand Alone Forms: Work/School Release
[2023-09-22 22:25] VITALS: BP 143/86; PULSE 82; RESP 18; O2SAT 97
[2023-09-22] MEDS: Acetaminophen 325 MG TABLET 975 MG PO (23:34)
[2023-09-22 23:39] LABS: Troponin-I High Sensitivity < 2.7 ng/L (<3.5-35.0)
== END 2023-09-22 23:53 | disposition home or self-care (01) ==
PROVIDERS: Emergency Provider Emergency Medicine
DX: R07.89 Other chest pain (principal); I10 Essential (primary) hypertension; R51.9 Headache, unspecified; R11.2 Nausea with vomiting, unspecified; R06.02 Shortness of breath; Z79.899 Other long term (current) drug therapy
CPT/HCPCS: 36415; 80053; 84484; 85025; 93005; 99283; 99285

== ENCOUNTER 2023-09-25 11:59 | Emergency (ER) | payer OTHER, SELFPAY ==
--- NOTE | ~2023-09-25 | XR_ITS ---
EXAMINATION: XR CHEST CLINICAL INFORMATION: Chest pain. COMPARISON: 07/25/2021. TECHNIQUE: 2 views of the chest were obtained. FINDINGS: No significant abnormality is noted involving the heart, lungs, mediastinum, bony thorax or soft tissues. XR/XR chest 2V IMPRESSION: Unremarkable examination.
--- NOTE | 2023-09-25 12:17 | ECG_ITS ---
Test Reason : chest pain Blood Pressure : / mmHG Vent. Rate : 085 BPM Atrial Rate : 085 BPM P-R Int : 162 ms QRS Dur : 100 ms QT Int : 374 ms P-R-T Axes : 057 052 031 degrees QTc Int : 445 ms Normal sinus rhythm Nonspecific T wave abnormality Abnormal ECG When compared with ECG of 22-SEP-2023 19:51, No significant change was found Referred By: Sweetie Gay Electronically Signed By:CHARLY HALL MD
[2023-09-25 12:26] VITALS: BP 150/89; PULSE 87; RESP 18; TEMP 36.8; O2SAT 98; BMI 33.7
--- NOTE | 2023-09-25 12:27 | ED.CHESTPAIN ---
HPI - Chest Pain General Chief Complaint: Chest Pain Stated Complaint: high blood pressure Time Seen by Provider: 09/25/23 13:51 Source: patient Mode of arrival: ambulatory Limitations: no limitations History of Present Illness HPI narrative: Patient is a 53 year old assigned male at with a history of HTN and migraines presenting to the emergency department today with a headache and concern for elevated blood pressure. Patient states that over the last few days he has had a headache and some chest pain. Patient states that he was recently started on Norvasc in addition to his HCTZ. Patient denies any dizziness, lightheadedness, abdominal pain, nausea, vomiting, fever, chills, blurry vision, double vision, loss of vision, difficulty breathing, shortness of breath, back pain, night sweats, pain with urination, increased urinary frequency, increased urinary urgency, blood in his urine or stool, syncope or a near syncopal episode, recent trauma or falls, bowel incontinence, bladder incontinence, bowel retention, bladder retention, or any other complaints at this time. MD complaint: chest pain Related Data Home Medications Medication Instructions Recorded Confirmed hydrochlorothiazide 12.5 mg capsule 12.5 mg PO DAILY 09/15/23 Previous Rx's Medication Instructions Recorded calcium polycarbophil 625 mg 1,250 mg (2 x 625 mg) PO DAILY 30 09/15/23 tablet (Fiber Laxative (calcium days #60 tabs polycarbophil)) sod picosulf 10 mg-magnes 3.5 160 ml PO DAILY 2 doses #320 mL 09/15/23 gram-citric 12 gram/160 mL oral solution (Clenpiq) sod picosulf 10 mg-magnes 3.5 175 ml PO ONCE 2 doses #350 mL 09/23/23 gram-citric 12 gram/175 mL oral solution (Clenpiq) butalbital 50 mg-acetaminophen 300 1 cap PO Q4H PRN pain 7 days #14 09/25/23 mg-caffeine 40 mg-codeine 30 mg caps cap (Fioricet with Codeine) sumatriptan succinate 50 mg tablet See Rx Instructions PO .COMPLEX 09/25/23 #10 tabs Allergies Allergy/AdvReac Type Severity Reaction Status Date / Time lisinopril [LISINOPRIL] Allergy Severe ANGIOEDEMA Verified 09/15/23 13:09 spider venom [SPIDER BITES] Allergy Unknown HIVES, Verified 09/15/23 13:09 THROAT CLOSES red (food color) AdvReac Severe ANAPHYLAXIS Verified 09/15/23 13:09 [RED (FOOD COLOR)] SARDINES Allergy Severe ANAPHYLAXIS Uncoded 09/15/23 13:09 Review of Systems Constitutional: Constitutional: Reports no additional constitutional complaints, Denies chills, Denies fever(s), Reports headache(s) and Denies night sweats Eyes: Eyes: Reports no additional eye complaints, Denies blurry vision, Denies change in vision, Denies diplopia, Denies eye discharge, Denies loss of vision and Denies eye pain ENT: Denies dizziness and Reports headache(s) Cardiovascular: Cardiovascular: Reports no additional cardiovascular complaints, Reports chest pain, Denies lightheadedness, Denies Loss of Consciousness and Denies dyspnea Respiratory: Respiratory: Reports no additional respiratory complaints and Denies dyspnea Gastrointestinal: Gastrointestinal: Reports no additional gastrointestinal complaints, Denies abdominal pain, Denies melena, Denies hematochezia, Denies change in bowel habits and Denies change in stool character Genitourinary: Genitourinary: Reports no additional male genitourinary complaints, Denies hematuria, Denies oliguria, Denies difficulty urinating, Denies dysuria, Denies urinary frequency, Denies urinary hesitancy, Denies urinary incontinence and Denies urinary urgency Musculoskeletal: Musculoskeletal: Reports no additional musculoskeletal complaints, Denies numbness and Denies tingling Neurologic: Denies dizziness, Reports headache(s), Denies loss of vision, Denies numbness and Denies tingling Psychiatric: Psychiatric: Reports no additional psychiatric complaints Endocrine: Endocrine: Reports no additional endocrine complaints Hematologic/Lymphatic: Hematologic/Lymphatic: Reports no additional hematologic/lymphatic complaints Allergic/Immunologic: Allergic/Immunologic: Reports no additional allergic/immunologic complaints [facility] Past Medical History Attestation statement: The following information was validated with the patient. Source: old records reviewed and nursing notes reviewed Medical History Chest pain Diabetes HTN (hypertension) Surgical History Hx of colonoscopy Social History Social History Household Members Other:: - daughter Alcohol intake: former Patient Tobacco Use Status: Tobacco use Unknown Smoked in Last 30 Days: No e-Cigarette/Vaping Use: Never Used Use of substances other than those prescribed or required for medical reasons: No Any prior treatment program specific to substance use: No Advance Directives: No Advance Directives Information Provided: No Current occupational status: employed Current occupation: [employer] Physical Exam Vital Signs: Vital Signs: Last Vital Signs Temp 98.3 F 09/25/23 13:34 Pulse 78 09/25/23 13:34 Resp 18 09/25/23 13:34 BP 142/81 H 09/25/23 13:34 Pulse Ox 98 09/25/23 13:34 O2 Del Method Room Air 09/25/23 13:34 BMI result Body Mass Index 33.7 Const: General: cooperative, no acute distress, alert and awake Nutritional Appearance: well nourished Orientation/consciousness: patient oriented x3 Limitations: no limitations HEENT: Head: Yes normal to inspection and Yes atraumatic Ears: hearing grossly normal bilaterally and external ears normal General nose exam: Normal external nose present, no nasal discharge noted and no epistaxis Face and sinus: Yes normal facial exam, No abrasion and No laceration Mouth: Normal oral and palatal mucosa present, no drooling and no muffled voice Eyes: General: appearance normal, both eyes and all related structures Periorbital: periorbital findings normal Eyelids: Yes eyelids normal Conjunctivae: conjunctivae normal Pupils: Equal, round and reactive pupils present EOM: EOMs intact bilaterally Neck: Neck: Yes normal visual inspection, Yes full ROM and Yes no lymphadenopathy Chest: Chest palpation & inspection: normal inspection of the chest Resp: Effort & Inspection: normal respiratory effort and able to speak in complete sentences Auscultation: clear to auscultation bilaterally Cardio: Rate: regular rate Rhythm: regular rhythm GI: Inspection: Yes normal to inspection Neuro: General: patient oriented x3 and moves all extremities Cranial nerves: Yes Equal, round and reactive pupils present Cognition (Neuro): normal cognition Motor exam (neuro): 5/5 motor strength present throughout Sensory Exam: Normal double simultaneous stimulation for sensation Coordination: [id number] test normal Extrem: General: Yes normal to inspection, Yes full ROM and Yes capillary refill normal Psych: Appearance: grossly normal Mental Status: mental status grossly normal Affect: normal affect Attitude: cooperative Thought process: Normal thought process present Thought content: Normal thought content present Insight: Good insight present (Psych) Course Course Course Narrative: This is a rapid medical exam. deferred additional HPi, ROS, PE to primary provider. 53 yo male with history of migraines, HTN here with intermittent chest pain/headache x months. Seen by PCP on Wednesday with recent changes in his blood pressure medication, seen here on Wednesday and discharged home after w/u. Here with continued symptoms. Will obtain labs, EKG VSS Medications Administered Discontinued Medications Generic Name Dose Route Start Last Admin Trade Name Freq PRN Reason Stop Dose Admin Acetaminophen/Butalbital/Caffeine 1 tab 09/25/23 14:00 09/25/23 14:07 Butalb/Acetamin/Caff 50/325/40 Tablet PO 09/25/23 14:01 1 tab ONCE ONE Administration Medical Decision Making Medical Decision Making [facility] Narrative: Patient is a 53 year old assigned male at with a history of HTN and migraines presenting to the emergency department today with a headache and chest pain. Patient's physical exam was unremarkable. Patient's blood work was unremarkable. Patient's EKG was unremarkable. Patient's chest x-ray showed no acute process. I explained my physical exam findings as well as all test results to the patient. I answered all questions asked by the patient. Patient received fiorcet which he stated helped his symptoms significantly. I stressed the importance of the patient taking his medication as prescribed. I stressed the importance of the patient following up with his primary care provider. I stressed the importance of the patient returning to the emergency department immediately if his symptoms were to worsen or if he were to develop any dizziness, shortness of breath, difficulty breathing, chest pain, blurry vision, loss of vision, nausea, vomiting, abdominal pain, fever, chills, back pain, or any other complaints. Patient verbalized agreement and understanding with this treatment plan and discharge. Differential Diagnosis Differential Diagnoses: The differential diagnosis associated with the presentation includes STEMI NSTEMI Headache Migraine HTN Admission/Observation Consideration of admission/observation: Escalation of care including admission/observation considered Patient would have been admitted to the hospital had his work up had any findings where hospital admission was appropriate and his clinical presentation warranted hospital admission. Lab Data [facility] Lab Attestation statement: I reviewed the patient's lab results. My interpretation of these studies and their corresponding values is that they are grossly normal. 09/25/23 12:44 09/25/23 12:44 Labs: Lab Results 09/25/23 09/25/23 Range/Units 12:44 14:08 WBC 7.9 (4.8-10.8) X10*3/uL RBC 5.72 (4.60-5.80) X10*6/uL Hgb 16.5 (14.0-18.0) g/dl Hct 48.6 (42.0-52.0) % MCV 85.0 (80.0-98.0) fL MCH 28.8 (27.0-33.0) pg MCHC 34.0 (31.0-36.0) g/dl RDW 13.2 (11.0-16.0) % Plt Count 166 (160-400) X10*3/uL MPV 11.4 (9.4-12.4) fL Immature Gran % (Auto) 0.3 (0.0-0.4) % Neut % (Auto) 61.0 (45-73) % Lymph % (Auto) 26.8 (20-40) % [place] % (Auto) 9.3 (2-11) % Eos % (Auto) 2.2 (0-4) % Baso % (Auto) 0.4 (0-2) % Lymph # (Auto) 2.1 (1.2-4.9) X10*3/uL [place] # (Auto) 0.7 (0.1-1.2) X10*3/uL Eos # (Auto) 0.2 (0.0-0.4) X10*3/uL Baso # (Auto) 0.0 (0.0-0.2) X10*3/uL Abs Immat Gran (auto) 0.02 (0.00-0.03) X10*3/uL Absolute Neuts (auto) 4.8 (2.0-8.3) x10*3/uL Absolute Nucleated RBC 0.000 (0.0-0.012) X10*3/uL Nucleated RBC % (auto) 0.0 (0.0-0.2) /100WBC Sodium 138 (135-145) mmol/L Potassium 3.3 (3.3-5.1) mmol/L Chloride 99 (96-108) mmol/L Carbon Dioxide 29 (22-29) mmol/L Anion Gap 13 (12-20) BUN 17 H (9-16) mg/dL Creatinine 0.80 (0.5-1.4) mg/dL Estim Creat Clear Calc 127.5 Estimated GFR > 60 Random Glucose 107 (60-115) mg/dL Calcium 9.4 (8.4-10.2) mg/dL Total Bilirubin 0.6 (0.0-1.0) mg/dL Direct Bilirubin 0.2 (0.0-0.5) mg/dL AST 61 H (5-37) U/L ALT 53 H (0-40) U/L Alkaline Phosphatase 105 (39-117) U/L Troponin I High Sens < 2.7 (<3.5-35.0) ng/L Total Protein 7.6 (6.5-8.0) g/dL Albumin 4.1 (3.5-5.0) g/dL Influenza Type A (PCR) NEGATIVE (Negative) Influenza Type B (PCR) NEGATIVE (Negative) RSV RNA Qual (PCR) NEGATIVE (Negative) SARS-CoV-2 RNA (RT-PCR) NEGATIVE (Negative) Independent Interpretation I performed an independent interpretation of an: EKG and Plain X-Ray Interpretation: My interpretation is in agreement with the radiologist's impression of this imaging study. EXAMINATION: XR CHEST CLINICAL INFORMATION: Chest pain. COMPARISON: 07/25/2021. TECHNIQUE: 2 views of the chest were obtained. FINDINGS: No significant abnormality is noted involving the heart, lungs, mediastinum, bony thorax or soft tissues. XR/XR chest 2V IMPRESSION: Unremarkable examination. Dictated By: Jamaal Perez Signed By: Electronically signed by Jamaal Perez 09/25/23 1630 Vent. Rate: 085 BPM Atrial Rate: 085 BPM P-R Int: 162 ms QRS Dur: 100 ms QT Int: 374 ms P-R-T Axes: 057 052 031 degrees QTc Int: 445 ms Normal sinus rhythm Nonspecific T wave abnormality Abnormal ECG When compared with ECG of 22-SEP-2023 19:51, No significant change was found DD/ 1220 Radiology Impression Discussion of test interpretation with radiology: I have reviewed the radiologist's reading. Prescription Management I considered prescription management with: Pain Medication (patient prescribed medication for his migraines.) Chronic Conditions Patient?s care impacted by: Hypertension Discharge Plan Discharge Clinical Impression: Headache Patient Disposition: Home, Self-Care Instructions: Acute Headache (DC) Additional Instructions: Follow up with your primary care provider. Return to the emergency department immediately if your symptoms worsen or if you develop any dizziness, shortness of breath, difficulty breathing, chest pain, blurry vision, loss of vision, nausea, vomiting, abdominal pain, fever, chills, back pain, or any other complaints. Prescriptions: New [id number]-[id number] [Fioricet with Codeine] [id number] mg capsule 1 cap PO Q4H PRN (Reason: pain) 7 Days Qty: 14 0RF sumatriptan succinate 50 mg tablet See Rx Instructions .ROUTE .COMPLEX Qty: 10 0RF Rx Instructions: take 1 tab at onset of headache; if no relief may repeat 1 tab after at least 2 hrs; max = 4 tabs/24 hr No Action Clenpiq 10 mg-3.5 gram- 12 gram/175 mL solution 175 ml PO ONCE Qty: 350 0RF Rx Instructions: take first bottle at 5PM evening before colonoscopy follow with at least 5cups (40oz) of clear liquids within 5 hours ; 2nd bottle the next day approximately 8 hours before colonoscopy follow by 4cups (32oz) of clear liquids- need to finish the 4cups of clear liquids 4 hours before your colonoscopy. hydrochlorothiazide 12.5 mg capsule 12.5 mg PO DAILY calcium polycarbophil [Fiber Laxative (ca polycarbo)] 625 mg tablet 1,250 mg PO DAILY 30 Days Qty: 60 3RF Clenpiq 10 mg-3.5 gram- 12 gram/160 mL solution 160 ml PO DAILY 0 Days Qty: 320 0RF Rx Instructions: take first dose at 5-9PM evening before colonoscopy; 2nd dose the next day approximately 5 hrs before colonoscopy Referrals: [facility] [Primary Care Provider] - Interventions: ED Discharge Assessment Last Done: 09/25/23 15:27 Discharge Date/Time: 09/25/23 15:27 Print Language: B[place]ud[place]
[2023-09-25 12:48] LABS: MANUAL DIFF FLAG NO
[2023-09-25 12:59] LABS: Basophils Percent Auto 0.4 % (0-2); Eosinophils Absolute Auto 0.2 X10*3/uL (0.0-0.4); Eosinophils Percent Auto 2.2 % (0-4); Hematocrit 48.6 % (42.0-52.0); Hemoglobin 16.5 g/dl (14.0-18.0); Imm Gran Abs Auto 0.02 X10*3/uL (0.00-0.03); Imm Gran Pct Auto 0.3 % (0.0-0.4); Lymphocytes Absolute Auto 2.1 X10*3/uL (1.2-4.9); Lymphocytes Percent Auto 26.8 % (20-40); Mean Corpuscular Hemoglobin 28.8 pg (27.0-33.0); Mean Platelet Volume 11.4 fL (9.4-12.4); Monocytes Absolute Auto 0.7 X10*3/uL (0.1-1.2); Monocytes Percent Auto 9.3 % (2-11); Neutrophils Absolute Auto 4.8 x10*3/uL (2.0-8.3); Platelet Count 166 X10*3/uL (160-400); Red Blood Count 5.72 X10*6/uL (4.60-5.80); Red Cell Distribution Width 13.2 % (11.0-16.0); White Blood Count 7.9 X10*3/uL (4.8-10.8)
[2023-09-25 13:08] LABS: Alanine Aminotransferase 53 U/L (0-40); Albumin Level 4.1 g/dL (3.5-5.0); Alkaline Phosphatase 105 U/L (39-117); Anion Gap 13 (12-20); Aspartate Amino Transferase 61 U/L (5-37); Bilirubin Direct 0.2 mg/dL (0.0-0.5); Bilirubin Total 0.6 mg/dL (0.0-1.0); Blood Urea Nitrogen 17 mg/dL (9-16); Calcium 9.4 mg/dL (8.4-10.2); Carbon Dioxide 29 mmol/L (22-29); Chloride 99 mmol/L (96-108); Creatinine Clr Calc Pharmacy 127.5; Estimated Glomerular Filt Rate > 60; Glucose Random 107 mg/dL (60-115); Potassium 3.3 mmol/L (3.3-5.1); Sodium 138 mmol/L (135-145); Total Protein 7.6 g/dL (6.5-8.0)
--- NOTE | 2023-09-25 13:09 | PC.NURSE ---
Addendum entered by Corie Marie RN 09/25/23 13:15: PT ALSO C/O DIFFUSE CP Original Note: PT PRESENTS WITH C/O HTN, HEADACHES,/MIGRAINES AFTER STARTING NEW BP MED. PT STATES NEW MED WAS STARTED AT SOME POINT LAST WEEK. PT ALSO COMPLAINING OF RINGING IN RIGHT EAR; PT STATES HE USES HEARING AIDES, HOWEVER, HE IS NON-COMPLIANT BECAUSE OF HIS HEADACHES. PT STATES WHEN HE WAS HERE PREVIOUS HE WAS GIVEN MIGRAINE MEDICATION, AND STATES HE WOULD LIKE TO RECEIVE THIS WITH TODAY'S VISIT.
[2023-09-25 13:29] LABS: Troponin-I High Sensitivity < 2.7 ng/L (<3.5-35.0)
[2023-09-25 13:34] VITALS: BP 142/81; PULSE 78; RESP 18; TEMP 36.8; O2SAT 98
[2023-09-25] MEDS: Butalb/Acetamin/Caff 50/325/40 TABLET 1 TAB PO (14:07)
[2023-09-25 14:55] LABS: Influenza A PCR NEGATIVE (Negative); Influenza B PCR NEGATIVE (Negative); Resp Syncy Virus RNA Qual PCR NEGATIVE (Negative); SARS COV2 PCR INHOUSE NEGATIVE (Negative)
== END 2023-09-25 15:27 | disposition home or self-care (01) ==
PROVIDERS: Nurse Practitioner Family; Physician Assistant Medical; Emergency Provider Emergency Medicine Emergency Medical Services
DX: R51.9 Headache, unspecified (principal); I10 Essential (primary) hypertension; Z20.822 Contact with and (suspected) exposure to COVID-19; Z20.828 Contact with and (suspected) exposure to other viral communicable diseases
CPT/HCPCS: 0241U; 36415; 71046; 80048; 80076; 84484; 85025; 93005; 99283; 99285

== ENCOUNTER 2024-01-18 06:45 | Outpatient (REF) | payer OTHER, SELFPAY ==
[2024-01-24 04:59] LABS: Lutenizing Hormone 6.4 mIU/mL (1.5-9.3)
[2024-01-26 11:48] LABS: Testosterone, Free 66.8 pg/mL (35.0-155.0); Testosterone, Total 703 ng/dL (250-1100)
== END 2024-01-18 06:46 | disposition home or self-care (01) ==
LOC: HO.LAB 06:45
PROVIDERS: PCP Internal Medicine; Visit Provider Internal Medicine
DX: R68.82 Decreased libido (principal)
CPT/HCPCS: 36415; 83001; 83002; 84146; 84402; 84403

== ENCOUNTER 2024-01-26 12:55 | Outpatient (REF) | payer OTHER, SELFPAY | END 2024-01-26 12:56 | disposition home or self-care (01) | LOC: HO.SH 12:55 | PROVIDERS: PCP Internal Medicine; Visit Provider Internal Medicine | DX: Z01.118 Encounter for examination of ears and hearing with other abnormal findings (principal); H90.3 Sensorineural hearing loss, bilateral; H93.13 Tinnitus, bilateral | CPT/HCPCS: 92557; 92567 ==

== ENCOUNTER 2024-12-25 09:28 | Emergency (ER) | payer OTHER, SELFPAY ==
--- NOTE | ~2024-12-25 | XR_ITS ---
EXAMINATION: XR SHOULDER, RIGHT CLINICAL INFORMATION: pain COMPARISON: None available. TECHNIQUE: AP external rotation, Grashey, scapular Y, and axillary views of the right shoulder. FINDINGS: No acute fracture, dislocation, or suspicious bone lesion. Normal glenohumeral and AC joint alignment. 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 Mildly downsloping lateral acromion without spur. No loss of subacromial space. Remainder of the bony and soft tissue structures appear normal. XR/XR shoulder RT min 2V IMPRESSION: No acute findings right shoulder. Electronically signed by: Leonard Carrillo MD 12/25/2024 11:05 AM [facility]
[2024-12-25 10:33] VITALS: BP 150/90; PULSE 86; RESP 20; TEMP 37; O2SAT 98; BMI 33.8
--- NOTE | 2024-12-25 10:35 | ED_ITS ---
HPI - General Adult General Chief complaint: Abdominal Pain Stated complaint: pain in r shoulder and l side abd pain Time Seen by Provider: 12/25/24 18:26 Source: patient, RN notes reviewed and old records reviewed Mode of arrival: ambulatory Limitations: no limitations History of Present Illness ED Provider: Flex HPI narrative: 44-year-old male past medical history significant for hypertension, history of migraines presents for evaluation of multiple complaints including right shoulder pain, left-sided abdominal pain. Patient reports his symptoms started 2 days ago on Wednesday. He endorses increased belching. He is also complaining of chest pain He reports that his pain has somewhat improved after being in the waiting room for approximately 8 hours Denies any cough or shortness of breath. No nausea vomiting, fevers No other complaints or concerns at this time Related Data Home Medications ?Medication ?Instructions ?Recorded ?Confirmed hydrochlorothiazide 12.5 mg capsule 12.5 mg PO DAILY 09/15/23 Previous Rx's ?Medication ?Instructions ?Recorded calcium polycarbophil 625 mg 1,250 mg (2 x 625 mg) PO DAILY 30 09/15/23 tablet (Fiber Laxative (calcium days #60 tabs polycarbophil)) sod picosulf 10 mg-magnes 3.5 160 ml PO DAILY 2 doses #320 mL 09/15/23 gram-citric 12 gram/160 mL oral solution (Clenpiq) sod picosulf 10 mg-magnes 3.5 175 ml PO ONCE 2 doses #350 mL 09/23/23 gram-citric 12 gram/175 mL oral solution (Clenpiq) butalbital 50 mg-acetaminophen 300 1 cap PO Q4H PRN pain 7 days #14 09/25/23 mg-caffeine 40 mg-codeine 30 mg caps cap (Fioricet with Codeine) sumatriptan succinate 50 mg tablet See Rx Instructions PO .COMPLEX 09/25/23 #10 tabs Allergies Allergy/AdvReac Type Severity Reaction Status Date / Time lisinopril [LISINOPRIL] Allergy Severe ANGIOEDEMA Verified 12/25/24 10:39 spider venom [SPIDER BITES] Allergy Unknown HIVES, Verified 12/25/24 10:39 THROAT CLOSES red (food color) AdvReac Severe ANAPHYLAXIS Verified 12/25/24 10:39 [RED (FOOD COLOR)] SARDINES Allergy Severe ANAPHYLAXIS Uncoded 09/15/23 13:09 Review of Systems 2 Constitutional: Constitutional: Denies body ache(s), Denies chills, Denies fever(s) and Denies headache(s) ENT: Denies headache(s) Cardiovascular: Cardiovascular: Reports chest pain Gastrointestinal: Gastrointestinal: Reports abdominal pain, Denies nausea and Denies vomiting Musculoskeletal: Musculoskeletal: Reports arthralgias, Reports joint swelling and Reports limited range of motion Integumentary/Breasts: Skin/Breast: Denies rash Neurologic: Denies headache(s) [facility] Past Medical History Medical History Chest pain Diabetes HTN (hypertension) Surgical History Hx of colonoscopy Social History Social History Household Members Other:: - daughter Alcohol intake: former Patient Tobacco Use Status: Tobacco use Unknown e-Cigarette/Vaping Use: Never Used Advance Directives: No Advance Directives Information Provided: Yes Do you have a plan to hurt others: No Plan Current occupational status: employed Current occupation: [employer] Physical Exam ED Vital Signs: Vital Signs - 24 hr 12/25/24 10:33 12/25/24 18:24 12/25/24 18:32 Temperature 98.6 F 97.9 F 97.9 F Pulse Rate 86 95 95 Respiratory Rate 20 18 18 Blood Pressure 150/90 H 129/94 H 129/94 H Pulse Oximetry 98 97 97 Oxygen Delivery Method Room Air Room Air BMI result Body Mass Index 33.8 Const General: healthy appearing, comfortable, no acute distress, alert and awake Nutritional Appearance: well nourished Orientation/consciousness: patient oriented x3 HENMT Head: Yes normocephalic and Yes atraumatic Eyes Eyelids: Yes eyelids normal Conjunctivae: conjunctivae normal Sclerae: sclerae normal Corneas: corneas normal Pupils: Equal, round and reactive pupils present EOM: EOMs intact bilaterally Neck Neck: Yes full ROM Resp Effort & Inspection: normal respiratory effort, able to speak in complete sentences and not labored GI Inspection: No distended Palpation (GI): Soft to palpation, not firm, nontender, no guarding and not rigid Skin General skin exam: elasticity normal Neuro General: patient oriented x3 Cranial nerves: Yes Equal, round and reactive pupils present and Yes Bilaterally intact EOM present Cognition (Neuro): normal cognition Extrem Other: Moving all extremities well without any obvious deformities Course Course Course Narrative: RME performed by Rowena Templeton PA-C. Patient is a 54 year old assigned male at presenting to the emergency department with right shoulder pain and left sided abdominal pain. Patient states that over the last week right left shoulder began clicking. Patient states that he is nauseous and dizzy as well. Detailed physical exam and review of systems are deferred to the irrigation equipment remover. EKG, labs, imaging, and swabs ordered. Patient placed back in the waiting room pending room availability and results. Medical Decision Making Medical Decision Making [facility] Narrative: 54-year-old male with past medical history as documented above presents for evaluation of multiple complaints including shoulder pain, abdominal pain and chest pain. The patient approached the triage desk requesting discharge. He reports his pain is improved. He was complaining of left-sided chest pain. His EKG shows a sinus rhythm with PVCs which is new however no ischemic change when compared to his most recent EKG. He did have a troponin ordered which was negative. He rules out for ACS. His shoulder x-ray shows no evidence of arthritis or traumatic injury. Viral swabs are negative, patient's labs are significant for a mild elevation of AST and ALT which is chronic for the patient. No other significant abnormalities. The patient be discharged at this time. His most likely diagnosis is GERD treatment T of the left-sided abdominal pain as well as chest pain he will follow up with his PCP Differential Diagnosis Differential Diagnoses: The differential diagnosis associated with the presentation includes ACS Abdominal pain Shoulder pain Arthralgia GERD Influenza Admission/Observation Consideration of admission/observation: Escalation of care including admission/observation considered Patient rules out for ACS Lab Data [facility] Lab Attestation statement: I reviewed the patient's lab results. As above 12/25/24 15:03 12/25/24 15:03 Labs: Lab Results 12/25/24 Range/Units 15:03 WBC 7.0 (4.8-10.8) X10*3/uL RBC 5.40 (4.60-5.80) X10*6/uL Hgb 15.9 (14.0-18.0) g/dl Hct 46.0 (42.0-52.0) % MCV 85.2 (80.0-98.0) fL MCH 29.4 (27.0-33.0) pg MCHC 34.6 (31.0-36.0) g/dl RDW 13.2 (11.0-16.0) % Plt Count 200 (160-400) X10*3/uL MPV 10.7 (9.4-12.4) fL Immature Gran % (Auto) 0.1 (0.0-0.4) % Neut % (Auto) 58.6 (45-73) % Lymph % (Auto) 31.5 (20-40) % [place] % (Auto) 6.9 (2-11) % Eos % (Auto) 2.3 (0-4) % Baso % (Auto) 0.6 (0-2) % Lymph # (Auto) 2.2 (1.2-4.9) X10*3/uL [place] # (Auto) 0.5 (0.1-1.2) X10*3/uL Eos # (Auto) 0.2 (0.0-0.4) X10*3/uL Baso # (Auto) 0.0 (0.0-0.2) X10*3/uL Abs Immat Gran (auto) 0.01 (0.00-0.03) X10*3/uL Absolute Neuts (auto) 4.1 (2.0-8.3) x10*3/uL Absolute Nucleated RBC 0.000 (0.0-0.012) X10*3/uL Nucleated RBC % (auto) 0.0 (0.0-0.2) /100WBC Sodium 140 (135-145) mmol/L Potassium 3.6 (3.3-5.1) mmol/L Chloride 104 (96-108) mmol/L Carbon Dioxide 25 (22-29) mmol/L Anion Gap 15 (12-20) BUN 15 (9-16) mg/dL Creatinine 0.84 (0.5-1.4) mg/dL Estim Creat Clear Calc 120.2 Estimated GFR > 60 Random Glucose 108 (60-115) mg/dL Calcium 9.3 (8.4-10.2) mg/dL Magnesium 2.0 (1.6-2.6) mg/dL Total Bilirubin 0.6 (0.0-1.0) mg/dL AST 53 H (5-37) U/L ALT 49 H (0-40) U/L Alkaline Phosphatase 105 (39-117) U/L Troponin I High Sens < 2.7 (<3.5-35.0) ng/L Total Protein 8.4 H (6.5-8.0) g/dL Albumin 4.3 (3.5-5.0) g/dL Influenza Type A (PCR) NEGATIVE (Negative) Influenza Type B (PCR) NEGATIVE (Negative) RSV RNA Qual (PCR) NEGATIVE (Negative) SARS-CoV-2 RNA (RT-PCR) NEGATIVE (Negative) Independent Interpretation I performed an independent interpretation of an: EKG Interpretation: Sinus rhythm with PVC. Rate of 83 beats minute. Radiology Impression Discussion of test interpretation with radiology: I have reviewed the radiologist's reading. Radiologist Impression: FINDINGS: No acute fracture, dislocation, or suspicious bone lesion. Normal glenohumeral and AC joint alignment. 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 Mildly downsloping lateral acromion without spur. No loss of subacromial space. Remainder of the bony and soft tissue structures appear normal. XR/XR shoulder RT min 2V IMPRESSION: No acute findings right shoulder. Electronically signed by: Leonard Carrillo MD 12/25/2024 11:05 AM [facility] Discharge Plan Discharge Clinical Impression: Chest pain, Abdominal pain, Acute shoulder pain Patient Disposition: Home, Self-Care Instructions: Abdominal Pain (ED), Arthralgia (ED) Additional Instructions: Your workup in the ER today was reassuring. This includes your blood work, x-ray, EKG. You do have a few extra beats on your EKG, but this is not usually concerning There were no signs of damage to your heart Your x-ray did not show any significant arthritis in your shoulder Your symptoms may be related to heartburn Follow-up with your primary doctor, return for new or worsening symptoms Prescriptions: No Action Clenpiq 10 mg-3.5 gram- 12 gram/175 mL solution 175 ml PO ONCE Qty: 350 0RF Rx Instructions: take first bottle at 5PM evening before colonoscopy follow with at least 5cups (40oz) of clear liquids within 5 hours ; 2nd bottle the next day approximately 8 hours before colonoscopy follow by 4cups (32oz) of clear liquids- need to finish the 4cups of clear liquids 4 hours before your colonoscopy. [id number] [Fioricet with Codeine] [id number] mg capsule 1 cap PO Q4H PRN (Reason: pain) 7 Days Qty: 14 0RF sumatriptan succinate 50 mg tablet See Rx Instructions .ROUTE .COMPLEX Qty: 10 0RF Rx Instructions: take 1 tab at onset of headache; if no relief may repeat 1 tab after at least 2 hrs; max = 4 tabs/24 hr hydrochlorothiazide 12.5 mg capsule 12.5 mg PO DAILY calcium polycarbophil [Fiber Laxative (ca polycarbo)] 625 mg tablet 1,250 mg PO DAILY 30 Days Qty: 60 3RF Clenpiq 10 mg-3.5 gram- 12 gram/160 mL solution 160 ml PO DAILY 0 Days Qty: 320 0RF Rx Instructions: take first dose at 5-9PM evening before colonoscopy; 2nd dose the next day approximately 5 hrs before colonoscopy Stand Alone Forms: Work/School Release Interventions: ED Discharge Assessment Last Done: 12/25/24 18:32 Discharge Date/Time: 12/25/24 18:33 Print Language: Slovak
--- NOTE | 2024-12-25 10:36 | ECG_ITS ---
Test Reason : WEAKNESS Blood Pressure : */* mmHG Vent. Rate : 83 BPM Atrial Rate : 83 BPM P-R Int : 160 ms QRS Dur : 100 ms QT Int : 396 ms P-R-T Axes : 66 62 32 degrees QTcB Int : 465 ms Sinus rhythm with occasional Premature ventricular complexes Otherwise normal ECG When compared with ECG of 25-Sep-2023 12:20, Premature ventricular complexes are now Present Nonspecific T wave abnormality no longer evident in Lateral leads Referred By: Rowena Templeton Electronically Signed By: YCN GARCIA MD
[2024-12-25 15:08] LABS: MANUAL DIFF FLAG NO
[2024-12-25 15:09] LABS: Basophils Percent Auto 0.6 % (0-2); Eosinophils Absolute Auto 0.2 X10*3/uL (0.0-0.4); Eosinophils Percent Auto 2.3 % (0-4); Hemoglobin 15.9 g/dl (14.0-18.0); Imm Gran Abs Auto 0.01 X10*3/uL (0.00-0.03); Imm Gran Pct Auto 0.1 % (0.0-0.4); Lymphocytes Absolute Auto 2.2 X10*3/uL (1.2-4.9); Lymphocytes Percent Auto 31.5 % (20-40); Mean Corpuscular HGB Conc 34.6 g/dl (31.0-36.0); Mean Corpuscular Hemoglobin 29.4 pg (27.0-33.0); Mean Corpuscular Volume 85.2 fL (80.0-98.0); Mean Platelet Volume 10.7 fL (9.4-12.4); Monocytes Absolute Auto 0.5 X10*3/uL (0.1-1.2); Monocytes Percent Auto 6.9 % (2-11); Neutrophils Absolute Auto 4.1 x10*3/uL (2.0-8.3); Neutrophils Percent Auto 58.6 % (45-73); Platelet Count 200 X10*3/uL (160-400); Red Cell Distribution Width 13.2 % (11.0-16.0)
[2024-12-25 15:29] LABS: Alanine Aminotransferase 49 U/L (0-40); Albumin Level 4.3 g/dL (3.5-5.0); Anion Gap 15 (12-20); Aspartate Amino Transferase 53 U/L (5-37); Bilirubin Total 0.6 mg/dL (0.0-1.0); Blood Urea Nitrogen 15 mg/dL (9-16); Calcium 9.3 mg/dL (8.4-10.2); Carbon Dioxide 25 mmol/L (22-29); Chloride 104 mmol/L (96-108); Creatinine Clr Calc Pharmacy 120.2; Estimated Glomerular Filt Rate > 60; Glucose Random 108 mg/dL (60-115); Potassium 3.6 mmol/L (3.3-5.1); Sodium 140 mmol/L (135-145); Total Protein 8.4 g/dL (6.5-8.0)
[2024-12-25 15:30] LABS: Troponin-I High Sensitivity < 2.7 ng/L (<3.5-35.0)
[2024-12-25 15:52] LABS: Influenza A PCR NEGATIVE (Negative); Influenza B PCR NEGATIVE (Negative); Resp Syncy Virus RNA Qual PCR NEGATIVE (Negative); SARS COV2 PCR INHOUSE NEGATIVE (Negative)
[2024-12-25 15:53] LABS: Alkaline Phosphatase 105 U/L (39-117)
[2024-12-25 18:24] VITALS: BP 129/94; PULSE 95; RESP 18; TEMP 36.6; O2SAT 97
--- OUTSIDE RECORDS SUMMARY | 2024-12-25 18:30 | XMS_ITS | Encounter Summary ---
Author Organization [employer] Address [address] [facility] [address] [place] [address] Care Team Providers Care Teleprinter Name Role Phone Evans Ventura MD Primary Care Prov ider Reason for Visit * Reason Onset Date Comments Nurse Triage 09/24/2023 Encounter Details Date Type Department Care Team ([facility] st Contact Info) Description 09/24/2023 Telephone [facility] MEDICINE [address] [place] [address] Evans Ventura MD [address] [place] [address] Nurse Triage Social History Tobacco Use Types Packs/Day Years Used Date Smoking Tobacco: Never Smokeless Tobacco: Never Depression Answer Date Recorded Patient Health Questionnaire-9 Score 0 08/02/2023 Housing Stability Answer Date Recorded What is your housing situation today? I have [employer] 09/16/[address] you li ve. Do you have problems with any of the following? None of the above 09/16/2023 Food Insecurity Answer Date Recorded Within the past 12 months, y ou worried that your food would run out before you got money to buy more: Never True 09/16/2023 Within the past 12 months,th e food you bought just didn't last and you didn't have enough money to get more: Never True 12/2022 Transportation Answer Date Recorded In the past 12 months, has l ack of transportation kept you from medical appts, meetings, work or from getting things needed for daily living? No 09/16/2023 Utilities Answer Date Recorded In the past 12 months, has t he electric, gas, oil or water company threatened to shut off services in your home? No 09/16/2023 Depression Answer Date Recorded Patient Health Questionnaire-2 Score 0 08/02/2023 Sex and Gender Information Value Date Recorded Sex Assigned at Male 09/14/2022 10:29 AM EDT Legal Sex Male 10:29 AM EDT Gender Identity Male 09/14/2022 10:29 AM EDT Sexual Orientation Choose not to disclose 2021 10:29 AM EDT documented as of this encounter Miscellaneous Notes * Telephone Encounter - Sarah Pagan RN - 09/24/2023 2:33 PM EST Second Hand notified by par that Pt requests a call back from triage nurse. Call to Pt , Pt reports is still waiting for call back from Doctor. Advised Pt that triage note was sent to [facility] nurses and PCP and then [facility] travel agency manager sent triage to PCP. Now awaiting PCP response. Pt has no further questions , call ended. * Telephone Encounter - Sarah Pagan RN - 09/24/2023 10:24 AM EST Triage call Pt seen [facility] 09/20/23 and was prescribed a new BP med. Amlodipine 5mg. Pt didn't receive medication till 09/22/23 and started taking it right away. Pt was seen in [facility] ED 09/22/23 for symptoms of Headache and BP high. Pt BP last night 09/23/23 was 155/107 and this AM it is 138/101. Pt is continuing to take the HCTZ 50mg as prescribed. Pt is requesting increased dosage of new medication or advice from PCP. Advised Pt tag writer will forward this request to PCP and nursing team in [facility] and Pt agreed. Protocol Used: Medication Question Call (Adult) Protocol-Based Disposition: Discuss with PCP and Callback by Nurse within 1 Hour Video visit not offered Positive Triage Question: * Caller has URGENT medicine question about med that PCP or specialist prescribed and triager unable to answer question * All higher-acuity triage questions were negative Care Advice Discussed: * Reasons To Call Back - You have any more questions - You become worse * Telephone Encounter - Rachel Torres - 09/24/2023 10:10 AM EST Symptom: High Blood Pressure - Caller Reports Outcome: Talk to a nurse or provider within 15 minutes Reason: Severe headache The caller accepted this outcome documented in this encounter Plan of Treatment Not on file documented as of this encounter Visit Diagnoses Not on filedocumented in this encounter Additional Health Concerns Assessment Noted Time PHQ-9 Depression Total Score: 0 08/02/20 23 3:13 PM EDT documented as of this encounter Care Teams Teleprinter Relationship Specialty Start Date End Date Evans Ventura MD [address] [place] [id number] PCP - General Internal Medicine 04/14/20 documented as of this encounter
--- OUTSIDE RECORDS SUMMARY | 2024-12-25 18:30 | XMS_ITS | Encounter Summary ---
Author Organization [employer] Address [address] [facility] [address] [place] [address] Care Team Providers Care Vocational Guidance Counselor Name Role Phone Evans Ventura MD Primary Care Prov ider Reason for Visit * Reason Onset Date Comments Med Refill 09/20/2023 Encounter Details Date Type Department Care Team ([facility] Contact Info) Description 09/20/2023 Telephone [facility] MEDICINE [address] [place] [phone] Evans Ventura MD [address] [place] [address] Med Refill Social History Tobacco Use Types Packs/Day Years Used Date Smoking Tobacco: Never Smokeless Tobacco: Never Depression Answer Date Recorded Patient Health Questionnaire-9 Score 0 08/02/2023 Housing Stability Answer Date Recorded What is your housing situation today? I have [employer]tah[employer]andida [employer] 09/16/[address] you [...] encounter Miscellaneous Notes * Telephone Encounter - Rachel Torres - 09/20/2023 3:13 PM EST Tc from pt requesting med refill on; diphenhydrAMINE (Benadryl Allergy) 25 MG tablet hydroCHLOROthiazide (HYDRODiuril) 50 MG tablet documented in this encounter Plan of Treatment Not on file documented as of this encounter Visit Diagnoses Not on filedocumented in this encounter Additional Health Concerns Assessment Noted Time PHQ-9 Depression Total Score: 0 08/02/20 23 3:13 PM EDT documented as of this encounter Care Teams Vocational Guidance Counselor Relationship Specialty Start Date End Date Evans Ventura MD [address] [place] [id number] PCP - General Internal Medicine 04/14/20 documented as of this encounter
--- OUTSIDE RECORDS SUMMARY | 2024-12-25 18:30 | XMS_ITS | Clinical Summary ---
Author Organization [employer] Address [address] [place] [address] Care Team Providers Care Child And Adolescent Therapist Name Role Phone Evans Ventura MD Primary Care Prov ider Allergies Active Allergy Reactions Criticality Noted Date Comments Lisinopril Anaphylaxis High 12/05/2019 Shellfish Allergy Anaphylaxis High 11/06/2022 Medications EPINEPHrine (EpiPen 2-Misbah) 0.3 MG/0.3ML injection syringe Inject 0.3 mL (0.3 mg) as directed 1 (one) time for 1 dose. 0.3 mL 09/20/20 23 Active azelastine (Astelin) 0.1 % nasal spray Administer 1 spray into each nostril 2 times daily. Use in each nostril as directed 30 mL 01/19/20 24 025 Active cetirizine (ZyrTEC) 10 MG tablet Take 1 tablet (10 mg) by mouth in the morning. 30 tablet 01/19/20 24 025 Active amLODIPine (Norvasc) 5 MG tabletIndication s:Primary hypertension Take 1 tablet (5 mg) by mouth in the morning. 90 tablet 3 01/28/20 24 025 Active hydrALAZINE (Apresoline) 25 MG tablet Take 1 tablet (25 mg) by mouth 3 times daily. 90 tablet 01/28/20 24 025 Active hydroCHLOROthiaz hanh (HYDRODiuril) 50 MG tabletIndication s:Primary hypertension TAKE 1 TABLET BY MOUTH EVERY DAY IN THE MORNING 90 tablet 3 12/01/19 25 Active amLODIPine (Norvasc) 10 MG tabletIndication s:Primary hypertension TAKE 1 TABLET BY MOUTH EVERY DAY IN THE MORNING 90 tablet 3 12/01/19 25 Active hydroCHLOROthiaz hanh (HYDRODiuril) 50 MG tabletIndication s:Primary hypertension Take 1 tablet (50 mg) by mouth in the morning. 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 01/12/2024 Assessment & Plan (01/12/2024 11:52 AM EST): Patient describe pain on frontal area of his head, denied blurry vision, dizzyness or nausea, describes pain as throbbing, worsens with bright light and loud noises, he is having stress lately, sleeping well, also his blood pressure is not under control, will discuss further treatment including prophylaxis management on upcoming appointment, for now take ibuprofen for acute episode (he refer has tx at home) Headache 09/21/2023 Assessment & Plan (02/03/2024 8:36 AM EDT): Patient thinks is related to his congestion, which I agree, but he needs to follow up with ENT he has deviated septum, he is on zyrtec and azelastine, help a little but refers during night it gets worse, he needs to follow up with ent to discuss his deviated septum issue Assessment & Plan (01/20/2024 9:36 AM EST): Patient has been having headache for the past week or more, refers having congestion, sinus tenderness, denied fever/chills, will order augmentin and azelastin, most likley his headaches are related to a sinus infection, he has no upper/lower neurologic deficit and no blurry vision Assessment & Plan (09/21/2023 5:12 PM EST): -possibly tension headache or due to uncontrolled HTN -HTN medication changed -trial OTC ibuprofen or tylenol -closely monitor onset, duration, precipitating factors -increase fluid intake, engage in stress reduction activities. 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 Will follow up in 6 weeks, bp target <140/90 Assessment & Plan (01/12/2024 10:28 AM EST): Improving, not at target, will increase amlodipine to 10mg common side effects discussed, continue hydrochlorothiazide, will follow up in 1 month Assessment & Plan (09/21/2023 5:03 PM EST): -headaches likely contributed to HTN state -allergic to lisinopril, question validity -start amlodipine 5 mg every day in addition to hydrochlorothiazide 50 mg. -keep daily measurement of BP -call clinic if BP 140/90 or greater Assessment & Plan (08/04/2023 9:52 PM EDT): Patient not monitoring his bp, told to keep bp, target <140/90, on hydrochlorothiazide, new labs will be ordered Encounters Date Type Department Care Team Description 12/25/2024 Orders Only [facility] External Provider, [facility] 11/29/2024 Refill [facility] [address] [place] [address] Evans Ventura MD Primary hypertension from Last 3 Months Immunizations Name Administration Dates Next Due Influenza, IIV3, injectable 09/04/2016 Pfizer Covid-19 Vaccine 12+ stefany-sucrose (Cantu C ap) 01/31/2022 Tdap 11/22/2009 Social History Tobacco Use Types Packs/Day Years Used Date Smoking Tobacco: Never Smokeless Tobacco: Never Tobacco Cessation:Counseling Given: Not Answered Depression Answer Date Recorded Patient Health Questionnaire-9 Score 0 08/02/2023 Housing Stability Answer Date Recorded What is your housing situation today? I have leatha gasca 09/16/[address] you [...] not to disclose 2021 10:29 AM EDT Last Filed Vital Signs Vital Sign Reading Time Taken Comments Blood Pressure 122/70 09/20/2023 1:49 PM EST Pulse 88 09/20/2023 1:15 PM EST Temperature 37.2 ??C (98.9 ??F) 09/20/2023 1:15 PM ES T Respiratory Rate 20 09/20/2023 1:15 PM EST Oxygen Saturation 96% 11/06/2022 1:11 PM EST Inhaled Oxygen Concentration - - Weight 107 kg (236 lb) 09/20/2023 1:15 PM EST Height 175.3 cm (5' 9 ) 09/20/2023 1:15 PM EST Body Mass Index 34.85 09/20/2023 1:15 PM EST Plan of Treatment Health Maintenance Due Date Last Done Comments CT Colonography 1968 Colonoscopy 1968 Colorectal Cancer Screening 1968 FIT DNA/Cologuard 1968 FIT 1968 FOBT 1968 HIV Screening 1968 Lipid Panel 1968 Sigmoidoscopy 1968 Alcohol/Substance Use Screening 1980 Hepatitis C Screening 1986 Hepatitis B Vaccines (1 of 3 - 19+ 3-dose series) 1987 Pneumococcal Vaccine: 50+ Years (1 of 1 - PCV) 2018 Zoster Vaccines (1 of 2) 2018 DTaP/Tdap/Td Vaccines (2 - T d or Tdap) 11/22/2019 11/22/2009 Tobacco Screening 11/06/2023 11/06/2022 COVID-19 Vaccine (4 - 2023-2 5 season) 2024 01/31/2022, 08/09/2021, 07/12/2021 Influenza Vaccine (#1) 2024 09/04/2016 Depression Screening 08/02/2024 08/02/2023, 08/02/2023 SDOH Screening 08/02/2024 08/02/2023 RSV Patients and Patients Aged 60 years or older (1 - 1-dose 75+ series) 2043 HIB Vaccines Aged Out No longer eligi ble based on patient's age to complete this topic HPV Vaccines Aged Out No longer eligi ble based on patient's age to complete this topic Hepatitis A Vaccines Aged Out No long er eligible based on patient's age to complete this topic IPV Vaccines Aged Out No longer eligi ble based on patient's age to complete this topic Meningococcal Vaccine Aged Out No bettye ulices eligible based on patient's age to complete this topic RSV under 20 months Aged Out No longe r eligible based on patient's age to complete this topic Rotavirus Vaccines Aged Out No longer eligible based on patient's age to complete this topic Procedures Procedure Name Priority Date/Time Associated Diagnosis Comments HIGH SENSITIVITY TROPONIN I Routine 12/25/2024 3:03 PM EST MAGNESIUM Routine 12/25/2024 3:03 PM EST COMPREHENSIVE METABOLIC PANEL Routine 12/25/2024 3:03 PM EST CBC WITH AUTO DIFFERENTIAL Routine 12/25/2024 3:03 PM EST SARS COV2/INFLUENZA A/B AND RSV RNA QL NAAT Routine 12/25/2024 3:03 PM EST XR SHOULDER 2+ VIEWS RIGHT Routine 12/25/2024 10:38 AM EST from Last 3 Months Results * High Sensitivity Troponin I (12/25/2024 3:03 PM EST) [facility] TROPONIN I HIGH SENSITIVITY <2.7 <3.5 - 35.0 ng/L [facility] Comment:The Cherry high sens itivity Troponin-I results should beused in conjunction with other diagnostic information suchas ECG, clinical observations and information, and patientsymptoms to aid in the diagnosis of ME. 12/25/2024 3:03 PM EST 12/25/2024 3:06 PM EST us Generic External Data Provider LAB BLOOD ORDERAB LES Final Result [facility] [address] [place] [phone] * SARS-CoV-2 RNA, Influenza A/B, and RSV RNA, Ql NAAT (12/25/2024 3:03 PM EST) [facility] Influenza A PCR NEGATIVE Negative [facility] Influenza B PCR NEGATIVE Negative [facility] Resp Syncy Virus RNA Qual PCR NEGATIVE Negative [facility] SARS COV2 PCR NEGATIVE Negative [facility] Comment:All test results mus t be correlated with clinical findings.Negative results do not preclude SARS-CoV2, influenza Avirus, influenza B virus and/or RSV infectionand should not be used as the sole basis for treatment orother patient management decisions. Negative results must becombined with clinical observations, patient history, andepidemiological information.This test has not been evaluated for monitoring treatment ofinfection.This test has been authorized by the FDA under an EmergencyUse Authorization (EUA) for use by authorized laboratories.Testing performed on the Task Messenger GeneXpert utilizingreal-time RT-PCR.All SARS CoV2 and positive influenza A/B results arereported to [facility]. 12/25/2024 3:03 PM EST 12/25/2024 3:06 PM EST us Generic External Data Provider LAB MICROBIOLOGY - GENERAL ORDERABLES Final Result [facility] [address] [place] [address] [phone] * CBC auto differential (12/25/2024 3:03 PM EST) White Blood Count 7.0 4.8 - 10.8 X10*3/uL [facility] Red Blood Count 5.40 4.60 - 5.80 X10*6/uL [facility] Hemoglobin 15.9 14.0 - 18.0 g/dl [facility] Hematocrit 46.0 42.0 - 52.0 % [facility] Mean Corpuscular Volume 85.2 80.0 - 98.0 fL [facility] Mean Corpuscular Hemoglobin 29.4 27.0 - 33.0 pg [facility] Mean Corpuscular HGB Conc 34.6 31.0 - 36.0 g/dl [facility] Red Cell Distribution Width 13.2 11.0 - 16.0 % [facility] Platelet Count 200 160 - 400 X10*3/uL [facility] Mean Platelet Volume 10.7 9.4 - 12.4 fL [facility] Neutrophils Percent Auto 58.6 45 - 73 % [facility] Imm Gran Pct Auto 0.1 0.0 - 0.4 % [facility] Lymphocytes Percent Auto 31.5 20 - 40 % [facility] Monocytes Percent Auto 6.9 2 - 11 % [facility] Eosinophils Percent Auto 2.3 0 - 4 % [facility] Basophils Percent Auto 0.6 0 - 2 % [facility] NRBC Pct Auto 0.0 0.0 - 0.2 /100WBC [facility] Neutrophils Absolute Auto 4.1 2.0 - 8.3 x10*3/uL [facility] Imm Gran Abs Auto 0.01 0.00 - 0.03 X10*3/uL [facility] Lymphocytes Absolute Auto 2.2 1.2 - 4.9 X10*3/uL [facility] Monocytes Absolute Auto 0.5 0.1 - 1.2 X10*3/uL [facility] Eosinophils Absolute Auto 0.2 0.0 - 0.4 X10*3/uL [facility] Basophils Absolute Auto 0.0 0.0 - 0.2 X10*3/uL [facility] NRBC Abs Auto 0.000 0.0 - 0.012 X10*3/uL [facility] 12/25/2024 3:03 PM EST 12/25/2024 3:06 PM EST us Generic External Data Provider LAB BLOOD ORDERAB LES Final Result [facility] [address] [place], [place] [phone] * Magnesium (12/25/2024 3:03 PM EST) Magnesium 2.0 1.6 - 2.6 mg/dL [facility] 12/25/2024 3:03 PM EST 12/25/2024 3:06 PM EST us Generic External Data Provider LAB BLOOD ORDERAB LES Final Result [facility] [address] [place] [address] [phone] * (ABNORMAL) Comprehensive Metabolic Panel (12/25/2024 3:03 PM EST) Sodium 140 135 - 145 mmol/L [facility] Potassium 3.6 3.3 - 5.1 mmol/L [facility] Chloride 104 96 - 108 mmol/L [facility] Carbon Dioxide 25 22 - 29 mmol/L [facility] Anion Gap 15 12 - 20 [facility] Urea Nitrogen (BUN) 15 9 - 16 mg/dL [facility] Creatinine, Serum 0.84 0.5 - 1.4 mg/dL [facility] Creatinine Clr Calc Pharmacy 120.2 [facility] Comment:eGFR (calculated fro m the MDRD study equation) and eCrCl(calculated from the Cockcroft-Gault equation) are based ondifferent parameters and may not yield comparable results.If eCrCl result is absurd, please check patient'sheight/weight. Estimated Glomerular Filt Rate >60 [facility] Comment:Chronic Kidney Disea se: Estimated GFR < 60 mL/min/1.52k3Cvabjr Kidney Disease: Estimated GFR < 15 mL/min/1.73m2 Glucose 108 60 - 115 mg/dL [facility] Calcium 9.3 8.4 - 10.2 mg/dL [facility] Bilirubin, Total 0.6 0.0 - 1.0 mg/dL [facility] Aspartate Amino Transferase 53(H) 5 - 37 U/L [facility] Alanine Aminotransferase 49(H) 0 - 40 U/L [facility] Total Protein 8.4(H) 6.5 - 8.0 g/dL [facility] Albumin Level 4.3 3.5 - 5.0 g/dL [facility] Alkaline Phosphatase 105 39 - 117 U/L [facility] 12/25/2024 3:03 PM EST 12/25/2024 3:06 PM EST us Generic External Data Provider LAB BLOOD ORDERAB LES Final Result [facility] [address] [place] [address] [phone] * XR Shoulder 2+ Views Right (12/25/2024 10:38 AM EST) Anatomical Region Laterality Modality Upper Extremities, Shoulder Right Radi ographic Imaging 12/25/2024 10:3 8 AM EST Narrative 12/25/2024 11:08 AM EST ? [facility] ?[address] ?[place] [address] ?XRay Report ? Signed ? Patient: Jason Crabtree ?MR#: [id number] ?? 7 ? : 1970 ?Acct:[id number] ? Age/Sex: 54 / M ?ADM Date: 12/25/24 ? Loc: HO.ED ? Attending Dr: ? Ordering Physician: Rowena Templeton ?? Date of Service: 12/25/24 ?? Procedure(s): XR shoulder RT min 2V ?? Accession Number(s): [id number] ? cc: Evans Ventura MD; Rowena Templeton ? EXAMINATION: ?? XR SHOULDER, RIGHT ? CLINICAL INFORMATION: ?? pain ? COMPARISON: ?? None available. ? TECHNIQUE: ?? AP external rotation, Grashey, scapular Y, and axillary views of the ?? right shoulder. ? FINDINGS: ?? No acute fracture, dislocation, or suspicious bone lesion. ?? Normal glenohumeral and AC joint alignment. ?? 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 ? Mildly downsloping lateral acromion without spur. ?? No loss of subacromial space. ? Remainder of the bony and soft tissue structures appear normal. ? XR/XR shoulder RT min 2V ?? IMPRESSION: ?? No acute findings right shoulder. ? Electronically signed by: ??Leonard Carrillo MD ??12/25/2024 11:05 AM EST RP ? Dictated By: ?Leonard Carrillo MD ? Signed By: ?<Electronically signed by Leonard Carrillo MD in OV> ?12/25/245 ? DD/ 1038 ? TD/TT: 12/25/24 1052 ? Guest Service Supervisor: ? Procedure Note [place], Image - 12/25/[address] [address] XRay Report Signed Patient: Jason CrabtreeMR#: [id number] 7 : 1970Acct:[id number] Age/Sex: 54 / MADM Date: 12/25/24 Loc: HO.ED Attending Dr: Ordering Physician: Rowena Templeton Date of Service: 12/25/24 Procedure(s): XR shoulder RT min 2V Accession Number(s): [id number] cc: Evans Ventura MD; Rowena Templeton EXAMINATION: XR SHOULDER, RIGHT CLINICAL INFORMATION: pain COMPARISON: None available. TECHNIQUE: AP external rotation, Grashey, scapular Y, and axillary views of the right shoulder. FINDINGS: No acute fracture, dislocation, or suspicious bone lesion. Normal glenohumeral and AC joint alignment. 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 Mildly downsloping lateral acromion without spur. No loss of subacromial space. Remainder of the bony and soft tissue structures appear normal. XR/XR shoulder RT min 2V IMPRESSION: No acute findings right shoulder. Electronically signed by: Leonard Carrillo MD 12/25/2024 11:05 AM EST Dictated By: Leonard Carrillo MD Signed By: <Electronically signed by Leonard Carrillo MD in OV> 12/25/24 1105 DD/ 1038 TD/TT: 12/25/24 1052 Guest Service Supervisor: [facility] External Provider IMG XR PROCEDURES Final Result from Last 3 Months Insurance [employer] Care Teams Child And Adolescent Therapist Relationship Specialty Start Date End Date Evans Ventura MD [address] [place] [address] PCP - General Internal Medicine 04/14/20
--- OUTSIDE RECORDS SUMMARY | 2024-12-25 18:30 | XMS_ITS | Encounter Summary ---
Author Organization [employer] Address [address] [facility] 7t [place] [address] Care Team Providers Care Field Supervisor Name Role Phone Evans Ventura MD Primary Care Prov ider Encounter Details Date Type Department Care Team (Late Contact Info) Description 12/25/2024 Orders Only [facility] External Provider, [facility] Social History Tobacco Use Types Packs/Day Years [...] AM EDT documented as of this encounter Plan of Treatment Not on file documented as of this encounter Procedures Procedure Name Priority Date/Time Associated Diagnosis Comments HIGH SENSITIVITY TROPONIN I Routine 12/25/2024 3:03 PM EST SARS COV2/INFLUENZA A/B AND RSV RNA QL NAAT Routine 12/25/2024 3:03 PM EST CBC WITH AUTO DIFFERENTIAL Routine 12/25/2024 3:03 PM EST MAGNESIUM Routine 12/25/2024 3:03 PM EST COMPREHENSIVE METABOLIC PANEL Routine 12/25/2024 3:03 PM EST XR SHOULDER 2+ VIEWS RIGHT Routine 12/25/2024 10:38 AM EST documented in this encounter Results * SARS-CoV-2 RNA, Influenza A/B, and RSV RNA, Ql NAAT (12/25/2024 3:03 PM EST) Influenza A PCR NEGATIVE Negative [facility] Influenza B PCR NEGATIVE Negative [facility] Resp Syncy Virus RNA Qual PCR NEGATIVE Negative [facility] SARS COV2 PCR NEGATIVE Negative [facility] Comment:All test results mus t [...] use by authorized laboratories.Testing performed on the [employer] GeneXpert utilizingreal-time RT-PCR.All SARS CoV2 and positive influenza A/B results arereported to [facility]. 12/25/2024 3:03 PM EST 12/25/2024 3:06 PM EST Generic External Data Provider LAB MICROBIOLOGY - GENERAL ORDERABLES Final Result Performing Organization Address [facility] Phone Number [facility] [address] [place] [phone] * High Sensitivity Troponin I (12/25/2024 3:03 PM EST) [facility] TROPONIN I HIGH SENSITIVITY <2.7 <3.5 - 35.0 ng/L [facility] Comment:The Cherry high sens itivity Troponin-I results should beused in conjunction with other diagnostic information suchas ECG, clinical observations and information, and patientsymptoms to aid in the diagnosis of [place]. 12/25/2024 3:03 PM EST 12/25/2024 3:06 PM EST Generic External Data Provider LAB BLOOD ORDERAB LES Final Result Performing Organization Address [facility] Phone Number [facility] [address] [place] [phone] * Magnesium (12/25/2024 3:03 PM EST) [facility] Magnesium 2.0 1.6 - 2.6 mg/dL [facility] 12/25/2024 3:03 PM EST 12/25/2024 3:06 PM EST Generic External Data Provider LAB BLOOD ORDERAB LES Final Result Performing Organization Address [facility] de Phone Number [facility] [address] [place] [phone] * (ABNORMAL) Comprehensive Metabolic Panel (12/25/2024 3:03 PM EST) [facility] Sodium 140 135 - 145 mmol/L [facility] Potassium 3.6 3.3 - 5.1 mmol/L [facility] Chloride 104 96 - 108 mmol/L [facility] Carbon Dioxide 25 22 - 29 mmol/L [facility] Anion Gap 15 12 - 20 [facility] Urea Nitrogen (BUN) 15 9 - 16 mg/dL [facility] Creatinine, Serum 0.84 0.5 - 1.4 mg/dL [facility] Creatinine Clr Calc Pharmacy 120.2 [facility] Comment:eGFR (calculated fro m the MDRD study equation) and eCrCl(calculated from the Cockcroft-Gault equation) are based ondifferent parameters and may not yield comparable results.If eCrCl result is absurd, please check patient'sheight/weight. Estimated Glomerular Filt Rate >60 [facility] Comment:Chronic Kidney Disea se: Estimated GFR < 60 mL/min/1.69h4Fzaedn Kidney Disease: Estimated GFR < 15 mL/min/1.73m2 Glucose 108 60 - 115 mg/dL [facility] Calcium 9.3 8.4 - 10.2 mg/dL [facility] Bilirubin, Total 0.6 0.0 - 1.0 mg/dL [facility] Aspartate Amino Transferase 53(H) 5 - 37 U/L [facility] Alanine Aminotransferase 49(H) 0 - 40 U/L [facility] Total Protein 8.4(H) 6.5 - 8.0 g/dL [facility] Albumin Level 4.3 3.5 - 5.0 g/dL [facility] Alkaline Phosphatase 105 39 - 117 U/L [facility] 12/25/2024 3:03 PM EST 12/25/2024 3:06 PM EST us Generic External Data Provider LAB BLOOD ORDERAB LES Final Result [facility] [address] [place] [phone] [phone] * CBC auto differential (12/25/2024 3:03 PM EST) White Blood Count 7.0 4.8 - 10.8 X10*3/uL [facility] Red Blood Count 5.40 4.60 - 5.80 X10*6/uL [facility] Hemoglobin 15.9 14.0 - 18.0 g/dl [facility] Hematocrit 46.0 42.0 - 52.0 % [facility] Mean Corpuscular Volume 85.2 80.0 - 98.0 fL [facility] Mean Corpuscular Hemoglobin 29.4 27.0 - 33.0 pg [facility] Mean Corpuscular HGB Conc 34.6 31.0 - 36.0 g/dl [facility] Red Cell Distribution Width 13.2 11.0 - 16.0 % [facility] Platelet Count 200 160 - 400 X10*3/uL [facility] Mean Platelet Volume 10.7 9.4 - 12.4 fL [facility] Neutrophils Percent Auto 58.6 45 - 73 % [facility] Imm Gran Pct Auto 0.1 0.0 - 0.4 % [facility] Lymphocytes Percent Auto 31.5 20 - 40 % [facility] Monocytes Percent Auto 6.9 2 - 11 % [facility] Eosinophils Percent Auto 2.3 0 - 4 % [facility] Basophils Percent Auto 0.6 0 - 2 % [facility] NRBC Pct Auto 0.0 0.0 - 0.2 /100WBC [facility] Neutrophils Absolute Auto 4.1 2.0 - 8.3 x10*3/uL [facility] Imm Gran Abs Auto 0.01 0.00 - 0.03 X10*3/uL [facility] Lymphocytes Absolute Auto 2.2 1.2 - 4.9 X10*3/uL [facility] Monocytes Absolute Auto 0.5 0.1 - 1.2 X10*3/uL [facility] Eosinophils Absolute Auto 0.2 0.0 - 0.4 X10*3/uL [facility] Basophils Absolute Auto 0.0 0.0 - 0.2 X10*3/uL [facility] NRBC Abs Auto 0.000 0.0 - 0.012 X10*3/uL [facility] 12/25/2024 3:03 PM EST 12/25/2024 3:06 PM EST us Generic External Data Provider LAB BLOOD ORDERAB LES Final Result [facility] [address] [place] [phone] * XR Shoulder 2+ Views Right (12/25/2024 10:38 AM EST) Anatomical Region Laterality Modality Upper Extremities, Shoulder Right Radi ographic Imaging 12/25/2024 10:3 8 AM EST Narrative 12/25/2024 11:08 AM EST ? [facility] ?[address] ?[place] [address] ?XRay Report ? Signed ? Patient: Jason Crabtree ?MR#: [id number] ?? 7 ? : 1970 ?Acct:[id number] ? Age/Sex: 54 / M ?ADM Date: 12/25/24 ? Loc: HO.ED ? Attending Dr: ? Ordering Physician: Rowena Templeton ?? Date of Service: 12/25/24 ?? Procedure(s): XR shoulder RT min 2V ?? Accession Number(s): [id number] ? cc: Evans Ventura MD; Rowena Templeton [...] DD/ 1038 ? TD/TT: 12/25/24 1052 ? Identification Technician: ? Procedure Note Donotuseinterpreter, Image - 12/25/2024 [place] [address] XRay Report Signed Patient: Jason CrabtreeMR#: [id number] 7 : 1970Acct:[id number] Age/Sex: 54 / MADM Date: 12/25/24 Loc: HO.ED Attending Dr: Ordering Physician: Rowena Templeton Date of Service: 12/25/24 Procedure(s): XR shoulder RT min 2V Accession Number(s): [id number] cc: Evans Ventura MD; Rowena Templeton EXAMINATION: [...] 12/25/24 1105 DD/ 1038 TD/TT: 12/25/24 1052 Identification Technician: [facility] External Provider IMG XR PROCEDURES Final Result documented in this encounter Visit Diagnoses Not on filedocumented in this encounter Additional Health Concerns Assessment Noted Time PHQ-9 Depression Total Score: 0 08/02/20 23 3:13 PM EDT documented as of this encounter Care Teams Field Supervisor Relationship Specialty Start Date End Date Evans Ventura MD [address] [place] [phone] PCP - General Internal Medicine 04/14/20 documented as of this encounter
--- OUTSIDE RECORDS SUMMARY | 2024-12-25 18:30 | XMS_ITS | Encounter Summary ---
Author Organization [employer] Address [address] [facility] 7 [place] [address] Care Team Providers Care Pile Driver Operator Name Role Phone Evans Ventura MD Primary Care Prov ider Reason for Visit * Reason Onset Date Comments ER Follow-up 09/27/2023 Encounter Details Date Type Department Care Team ([facility] Contact Info) Description 09/27/2023 Telephone [facility] MEDICINE [address] [place] [address] Evans Ventura MD [address] [place] [address] ER Follow-up Social History Tobacco Use Types Packs/Day Years [...] encounter Miscellaneous Notes * Telephone Encounter - Becky Bermudez RN - 09/27/2023 11:29 AM EST called pt to triage, spoke to pt. pt states seen ER at [facility] on 09/25 for continued migraines. pt states had migraines before and used to be on a medication which helped but stopped taking it. pt states also having HTN but thinks it is caused by the migraines. offered appt to follow up, declined. pt s tates his PCP has dropped the ball multiple times and he feels his medical needs are not being met. pt requesting to change PCP and also declines any appt at this time, only wants the medication he was prescribed in the ER. advised would need ER follow up in order to do this and pt continues to decline. advised will send task to Nurse Leather Heel Breaster for [facility] to follow up regarding request to change PCP.pt understands and is advised to call back if he changes his mind and wants an appt. insurance verified. Protocol Used: Headache (Adult) Protocol-Based Disposition: See in Office or Video Visit within 2 Weeks Video visit not offered Positive Triage Question: * Headache is a chronic symptom (recurrent or ongoing AND lasting > 4 weeks) * All higher-acuity triage questions were negative Care Advice Discussed: * Reassurance and Education - Migraine Headache * Reassurance and Education - Muscle Tension Headache * Pain Medicines * Rest for Headache * Cold Pack for Headache * Stretching * Reasons To Call Back - Severe headache persists over 2 hours after pain medicine - Headache lasts over 24 hours despite using a pain medicine - You become worse * Telephone Encounter - Martir Hawkins - 09/27/2023 10:47 AM EST Patient calling to report ED visit on 09/25/23 at [facility]. Reports to be seen for headache. Dx with migraines. Pt states still has a headache. Patient advised will forward to triage nurse for follow up. Please contact at [phone] documented in this encounter Plan of Treatment Not on file documented as of this encounter Visit Diagnoses Not on filedocumented in this encounter Additional Health Concerns Assessment Noted Time PHQ-9 Depression Total Score: 0 08/02/20 23 3:13 PM EDT documented as of this encounter Care Teams Pile Driver Operator Relationship Specialty Start Date End Date Evans Ventura MD [address] [place] [phone] PCP - General Internal Medicine 04/14/20 documented as of this encounter
--- OUTSIDE RECORDS SUMMARY | 2024-12-25 18:30 | XMS_ITS | Encounter Summary ---
Author Organization [employer] Address [address] [facility] 7t [place] [address] Care Team Providers Care Process Development Engineer Name Role Phone Evans Ventura MD Primary Care Prov ider Encounter Details Date Type Department Care Team (Late st Contact Info) Description 11/05/2022 Orders Only [facility] MEDICINE [address] [place] [address] Evans Ventura MD [address] [place] [address] Primary hypertension Social History Tobacco Use Types Packs/Day Years Used Date Smoking Tobacco: Never Assessed Sex and Gender Information Value Date Recorded Sex Assigned at Male 09/14/2022 10:29 AM EDT Legal Sex Male 10:29 AM EDT Gender Identity Male 09/14/2022 10:29 AM EDT Sexual Orientation Choose not to disclose 2021 10:29 AM EDT COVID-19 Exposure Response Date Recorded In the last 10 days, have yo u been in contact with someone who was confirmed or suspected to have Coronavirus/COVID-19? No / Unsure 11/06/2022 12:41 PM EST documented as of this encounter Plan of Treatment Not on file documented as of this encounter Visit Diagnoses Diagnosis Primary hypertension Unspecified essential hypertension documented in this encounter Care Teams Process Development Engineer Relationship Specialty Start Date End Date Evans Ventura MD [address] [place] [address] PCP - General Internal Medicine 04/14/20 documented as of this encounter
--- OUTSIDE RECORDS SUMMARY | 2024-12-25 18:30 | XMS_ITS | Encounter Summary ---
Author Organization [employer] Address [address] [facility] 7t [place] [address] Care Team Providers Care Manager Research And Development Name Role Phone Evans Venutra MD Primary Care Prov ider Reason for Visit * Reason Comments Med Refill Encounter Details Date Type Department Care Team ([facility] Contact Info) Description 11/29/2024 Refill [facility] MED & PEDS [address] [place] [address] Evans Ventura MD [address] [place] [address] Primary hypertension Social History Tobacco Use Types [...] Unspecified essential hypertension documented in this encounter Additional Health Concerns Assessment Noted Time PHQ-9 Depression Total Score: 0 08/02/20 23 3:13 PM EDT documented as of this encounter Care Teams Manager Research And Development Relationship Specialty Start Date End Date Evans Ventura MD [address] [place] [phone] PCP - General Internal Medicine 04/14/20 documented as of this encounter
--- OUTSIDE RECORDS SUMMARY | 2024-12-25 18:30 | XMS_ITS | Encounter Summary ---
Author Organization [employer] Address [address] [facility] 7 [place] [address] Care Team Providers Care Marketing Information Analyst Name Role Phone Evans Ventura MD Primary Care Prov ider Reason for Visit * Reason Onset Date Comments Med Refill 09/20/2023 Encounter Details Date Type Department Care Team ([facility] Contact Info) Description 09/20/2023 Telephone [facility] MEDICINE [address] [place] [address] Evans Ventura MD [address] [place] [address] Med Refill Social History Tobacco Use Types [...] documented as of this encounter Care Teams Marketing Information Analyst Relationship Specialty Start Date End Date Evans Ventura MD [address] [place] [phone] PCP - General Internal Medicine 04/14/20 documented as of this encounter
--- OUTSIDE RECORDS SUMMARY | 2024-12-25 18:30 | XMS_ITS | Encounter Summary ---
Author Organization [employer] Address [address] [facility] 7t [place] [address] Care Team Providers Care Mental Health Therapist Name Role Phone Evans Ventura MD Primary Care Prov ider Reason for Visit * Reason Onset Date Comments Medication Question 01/27/2024 Encounter Details Date Type Department Care Team ([facility] Contact Info) Description 01/27/2024 Telephone [facility] MEDICINE [address] [place] [address] Evans Ventura MD [address] [place] [address] Medication Question Social History Tobacco Use Types Packs/Day Years [...] encounter Miscellaneous Notes * Telephone Encounter - Delroy Hernandez - 01/27/2024 9:08 AM EDT Tc from patient calling to in form the PCP that the patient had a reaction to the medication amLODIPine (Norvasc) 10 MG tablet states has made his legs swell up and was told by Provider if it happensto call [facility] patient refused to be triage documented in this encounter Plan of Treatment Not on file documented as of this encounter Visit Diagnoses Not on filedocumented in this encounter Additional Health Concerns Assessment Noted Time PHQ-9 Depression Total Score: 0 08/02/20 23 3:13 PM EDT documented as of this encounter Care Teams Mental Health Therapist Relationship Specialty Start Date End Date Evans Ventura MD [address] [place] [phone] PCP - General Internal Medicine 04/14/20 documented as of this encounter
--- OUTSIDE RECORDS SUMMARY | 2024-12-25 18:30 | XMS_ITS | Encounter Summary ---
Author Organization [employer] Address [address] [facility] 7 [place] [address] Care Team Providers Care Communications Controller Name Role Phone Evans Ventura MD Primary Care Prov ider Reason for Visit * Reason Onset Date Comments Nurse Triage 01/26/2024 Encounter Details Date Type Department Care Team ([facility] st Contact Info) Description 01/26/2024 Telephone [facility] [address] [place] [address] Evans Ventura MD [address] [place] [address] Nurse Triage Social History Tobacco Use Types [...] encounter Miscellaneous Notes * Telephone Encounter - Leopoldo Guillen RN - 01/26/2024 5:01 PM EDT Please see TRG message below, has a televisit with you next week, please advise. Thanks. * Telephone Encounter - Sarah Pagan RN - 01/26/2024 3:17 PM EDT Triage call Pt reports headache which has been chronic for some time. Pt BP last night was 166/98. Pt is taking hydrochlorothiazide 50mg and amlodipine 10mg as prescribed. Pt does have apt with PCP 02/02/24 . Pt reports nothing is helping the headache. Pt has seen ENT and is at the end of my rope .Pt requests for PCP to call Pt. Pt is advised to come to [facility] today, no apts available in [facility]. Pt declines to go to [facility] , what are they going to do for me . Pt requests this information be sent to PCP. Pt agrees with disposition. Pt already implementing home care. Protocol Used: Headache (Adult) Protocol-Based Disposition: See [...] Muscle Tension Headache * Pain Medicines * Pain Medicine for Migraine * Rest for Headache * Cold Pack for Headache * Stretching * Reasons To Call Back - Severe headache persists over 2 hours after pain medicine - Headache lasts over 24 hours despite using a pain medicine - You become worse * Telephone Encounter - Danielle Escamilla - 01/26/2024 2:53 PM EDT Symptom: Headache Outcome: Schedule an urgent appointment (within 4 hours) or talk to a nurse or provider soon Reason: Getting worse, was seen on 01/18 for headaches. Pt was given amoxicillin but finished medication today and is still symptomatic The caller accepted this outcome Please contact pt at [phone] documented in this encounter Plan of Treatment Not on file documented as of this encounter Visit Diagnoses Not on filedocumented in this encounter Additional Health Concerns Assessment Noted Time PHQ-9 Depression Total Score: 0 08/02/20 23 3:13 PM EDT documented as of this encounter Care Teams Communications Controller Relationship Specialty Start Date End Date Evans Ventura MD [address] [place] [phone] PCP - General Internal Medicine 04/14/20 documented as of this encounter
[2024-12-25 18:32] VITALS: BP 129/94; PULSE 95; RESP 18; TEMP 36.6; O2SAT 97
== END 2024-12-25 18:33 | disposition home or self-care (01) ==
PROVIDERS: Physician Assistant Medical; Emergency Provider Emergency Medicine; PCP Internal Medicine
DX: M25.511 Pain in right shoulder (principal); R07.9 Chest pain, unspecified; R10.9 Unspecified abdominal pain; R14.2 Eructation; I10 Essential (primary) hypertension; E11.9 Type 2 diabetes mellitus without complications; Z03.818 Encounter for observation for suspected exposure to other biological agents ruled out
CPT/HCPCS: 0241U; 73030; 80053; 83735; 84484; 85025; 93005; 99283

== ENCOUNTER → 2024-12-25 10:36 | Outpatient (BNV) | payer OTHER, SELFPAY | PROVIDERS: Emergency Provider Emergency Medicine; PCP Internal Medicine; Visit Provider Internal Medicine Cardiovascular Disease | DX: I49.3 Ventricular premature depolarization (principal) | CPT/HCPCS: 93010 ==

== ENCOUNTER → 2024-12-25 10:38 | Outpatient (BNV) | payer OTHER, SELFPAY | PROVIDERS: PCP Internal Medicine; Visit Provider Radiology Diagnostic Radiology | DX: M25.511 Pain in right shoulder (principal) | CPT/HCPCS: 73030 ==

== ENCOUNTER 2025-05-24 06:41 | Outpatient (REF) | payer OTHER, SELFPAY ==
--- OUTSIDE RECORDS SUMMARY | 2025-05-24 06:43 | XMS_ITS | Encounter Summary ---
Author Organization [employer] Address [address] [facility] 7 [place] [address] Care Team Providers Care Administrative Support Technician Name Role Phone Evans Ventura MD Primary Care Prov ider Reason for Visit * Reason Onset Date Comments Med Refill 09/20/2023 Encounter Details Date Type Department Care Team (Late st Contact Info) Description 09/20/2023 Telephone [facility] MEDICINE [address] [place] [address] Evans Ventura MD [address] [place] [address] Med Refill Social History Tobacco Use Types [...] documented as of this encounter Care Teams Administrative Support Technician Relationship Specialty Start Date End Date Evans Ventura MD [address] [place] [phone] PCP - General Internal Medicine 04/14/20 documented as of this encounter
[2025-05-24 07:04] LABS: MANUAL DIFF FLAG NO
[2025-05-24 07:42] LABS: Hematocrit 43.3 % (42.0-52.0); Hemoglobin 15.2 g/dl (14.0-18.0); Imm Gran Abs Auto 0.01 X10*3/uL (0.00-0.03); Imm Gran Pct Auto 0.2 % (0.0-0.4); Lymphocytes Absolute Auto 1.8 X10*3/uL (1.2-4.9); Mean Corpuscular HGB Conc 35.1 g/dl (31.0-36.0); Mean Corpuscular Hemoglobin 29.0 pg (27.0-33.0); Mean Corpuscular Volume 82.6 fL (80.0-98.0); NRBC Abs Auto 0.000 X10*3/uL (0.0-0.012); NRBC Pct Auto 0.0 /100WBC (0.0-0.2); Platelet Count 165 X10*3/uL (160-400); Red Blood Count 5.24 X10*6/uL (4.60-5.80); White Blood Count 4.7 X10*3/uL (4.8-10.8)
[2025-05-24 08:21] LABS: Alanine Aminotransferase 65 U/L (0-40); Albumin Level 4.3 g/dL (3.5-5.0); Alkaline Phosphatase 124 U/L (39-117); Anion Gap 13 (12-20); Aspartate Amino Transferase 69 U/L (5-37); Blood Urea Nitrogen 20 mg/dL (9-16); Calcium 9.4 mg/dL (8.4-10.2); Carbon Dioxide 28 mmol/L (22-29); Chloride 101 mmol/L (96-108); Cholesterol 211 mg/dL (<200); Estimated Glomerular Filt Rate > 60; HDL Cholesterol 36 mg/dL (>40); Potassium 3.7 mmol/L (3.3-5.1); Sodium 138 mmol/L (135-145); Total Protein 7.8 g/dL (6.5-8.0); Triglycerides 132 mg/dL (<150)
[2025-05-24 08:25] LABS: HIV Num 1 0.07 S/CO (0.00-0.99); PSA,Total (Free>4and<10) 1.47 ng/mL (0.00-4.00); ~HepC Num1 0.14 S/CO (0.00-0.79); ~Hepatitis C Antibody Nonreactive (Nonreactive)
== END 2025-05-24 06:42 | disposition home or self-care (01) ==
LOC: HO.LAB 06:41
PROVIDERS: PCP Internal Medicine; Visit Provider Internal Medicine
DX: I10 Essential (primary) hypertension (principal); Z12.5 Encounter for screening for malignant neoplasm of prostate
CPT/HCPCS: 36415; 80053; 80061; 84153; 84443; 85025; 86803; 87389

== ENCOUNTER 2025-09-11 12:27 | Outpatient (AMB) | payer OTHER, SELFPAY ==
--- NOTE | 2025-09-11 12:34 | A.OFFVIS_ITS ---
Vital Signs 09/11/25 12:43 Height 5 ft 10 in Weight 230 lb BMI 33.0 BP 134/76 Blood Pressure Location Lt brachial Position Sitting Pulse 76 Pulse Oximetry (%) 90 L Oxygen Delivery Method Room Air Intake Visit Reasons: PRE COLONOSCOPY/ANGELIQUE PT Intake Note: Patient complex follow up for pre colonoscopy/Angelique pt endy was 09/15/2023. Patient cc: yesterday he was with diarrhea and a lot of burping. Regulatory Process Manager Required: No Accompanied by: Self / Same As Patient Allergies lisinopril (LISINOPRIL) Allergy (Severe, Verified 09/11/25 12:34) ANGIOEDEMA spider venom (SPIDER BITES) Allergy (Unknown, Verified 09/11/25 12:34) HIVES, THROAT CLOSES red (food color) (RED (FOOD COLOR)) Adverse Reaction (Severe, Verified 09/11/25 12:34) ANAPHYLAXIS SARDINES Allergy (Severe, Uncoded 09/15/23 13:09) ANAPHYLAXIS Medication List - Last Reconciled 09/11/25 by Shandra Barnes CNP amlodipine 10 mg PO QAM cetirizine 10 mg PO QAM epinephrine IM DAILY PRN hydrochlorothiazide 50 mg PO QAM HPI HPI PRE COLONOSCOPY/ANGELIQUE PT: Details: Patient is a 55-year-old male with PMH of hypertension, TIGIST with CPAP. Referred by PCP for pre colonoscopy screening. Gastrointestinal review reveals a baseline of two formed bowel movements daily, with no regular diarrhea or constipation. Noted a single episode of diarrhea yesterday attributed to dietary indiscretion. Belching has occurred for years, episodically, approximately 1?2 times/week, sometimes associated with coffee but not with significant odor, regurgitation, or dysphagia. No history of heartburn or changes in GI symptoms. Last colonoscopy in 2015 revealed external hemorrhoids and was otherwise normal; prior indication was rectal bleeding, not currently present. A colonoscopy was planned for 09/2023 but was deferred due to cardiac workup for intermittent chest pain and hypertension; subsequent evaluation revealed no ongoing cardiac symptoms. No notable family history of GI malignancy. Comorbid conditions include hypertension on medical management, and history of obstructive sleep apnea treated with CPAP. No medications or treatments that would affect GI diagnostic workup. Patient denies: fever/chills, n/v, appetite changes, pyrosis, regurgitation,dysphasia, unintentional wt loss, ab pain or melena/hematochezia. Social hx: - denies ETOH use -denies recreational drug use -non-smoker - family hx as below -denies personal hx of CA -tolerated anesthesia in the past without difficulty. [facility] Medical History (Updated 09/11/25 @ 13:21 by Shandra Barnes CNP) Belching Chest pain Diabetes HTN (hypertension) Surgical History (Updated 09/11/25 @ 12:41 by Ashwini Escamilla) History of appendectomy Hx of colonoscopy Social History Household Members Other:: - daughter Alcohol intake: former Patient Tobacco Use Status: Tobacco use Unknown e-Cigarette/Vaping Use: Never Used Current occupational status: employed Current occupation: [employer] Review of Systems Const Reports as per HPI ENT Reports as per HPI Card Reports as per HPI Resp Reports as per HPI GI Reports as per HPI Reports as per HPI Physical Exam Const General: healthy appearing, no acute distress and well developed Nutritional Appearance: average body habitus Orientation/consciousness: patient oriented x3 HEENT Head: Yes normal to inspection, Yes normocephalic and Yes atraumatic Face and sinus: Yes normal facial exam Eyes General: appearance normal, both eyes and all related structures Neck Neck: Yes normal visual inspection Resp Effort & Inspection: normal respiratory effort, able to speak in complete sentences, no tracheal deviation and symmetric chest movement Neuro General: patient oriented x3 Gait exam (Neuro): Normal gait present Psych Appearance: grossly normal Mental Status: mental status grossly normal Speech and movement: Normal speech and movement present Affect: normal affect Attitude: cooperative Thought process: Normal thought process present Thought content: Normal thought content present Insight: Good insight present (Psych) Judgement: Good judgement present (Psych) Assessment & Plan Assessment & Plan (1) Encounter for screening colonoscopy: Comment: 06/03/16 (Dr. Muñiz) complete with adequate prep-external hemorrhoids, otherwise normal colonscopy findings. Code(s): Z12.11 - Encounter for screening for malignant neoplasm of colon Category: Medical Plan: Appropriate interval screening; last colonoscopy >9 yrs ago; normal baseline except hemorrhoids. Additional Testing: None needed prior to colonoscopy; proceed with planned CRC screening. Medication Management: Adjust bowel prep due to reported allergies (no red dye, use senna tablets rather than Dulcolax or magnesium citrate; instructions provided). Lifestyle Recommendations: Clear liquid diet day prior to procedure; avoid red, blue, purple liquids; review prep packet and follow instructions. Follow-Up: Colonoscopy scheduled per outpatient protocol; reevaluate post- procedure for results and further screening interval recommendations. (2) Belching: Code(s): R14.2 - Eructation Category: Medical Plan: Chronic, nonprogressive belching with rare dietary triggers and no alarm features; H. pylori testing indicated due to chronicity and to rule out organic etiology. DDX: functional dyspepsia, dietary triggers, aerophagia, less likely H. pylori gastritis Additional Testing: Urea breath test for H. pylori (scheduled when fasting). Medication Management: None initiated; will treat if H. pylori positive (plan for standard therapy as per guidelines). Lifestyle Recommendations: Monitor and minimize additional dietary triggers (noted association with coffee; spicy, fatty, or acidic foods can contribute); no further restrictions unless symptoms change. Follow-Up: Results of H. pylori test to guide further management; return visit after results or as needed for worsening symptoms. Plan Follow-up after colonoscopy or sooner as needed Time: I spent a total of 45 minutes on the date of encounter which includes: Preparing to see the patient (reviewed previous documentation, test results and medical history) Performing a medically appropriate exam and/or evaluation Ordering medications, tests, and procedures Documenting clinical information in the health record Orders: Orders H Pylori Breath Test Today R14.2 - Eructation Referrals GI Procedure Notification Z12.11 - Encounter for screening for malignant neoplasm of colon Medications: New sennosides-docusate sodium 8.6-50 mg (Senna Plus) Take two tablets at bedtime, starting three days before colonoscopy 2 tab- caps (2 x 8.6-50 mg) PO BEDTIME 6 caps 0RF 3 days polyethylene glycol 3350 (Miralax) per colonoscopy prep instructions 238 grams PO ONCE 238 grams 0RF Coding Level of Care Code Established Pt New Pt Level 4 (39150) Patient Type Established Diagnoses Encounter for screening colonoscopy Z12.11 Belching R14.2
[2025-09-11 12:43] VITALS: BP 134/76; PULSE 76; O2SAT 90; BMI 33.0
--- OUTSIDE RECORDS SUMMARY | 2025-09-11 15:42 | XMS_ITS | Encounter Summary ---
Author Organization [employer] Address [address] [facility] 7t [place] [address] Care Team Providers Care Laboratory Monitor Name Role Phone Evans Ventuar MD Primary Care Prov ider Reason for Visit * Reason Onset Date Comments Medication Question 01/27/2024 Encounter Details Date Type Department Care Team ([facility] st Contact Info) Description 01/27/2024 Telephone [facility] MEDICINE [address] [place] [address] Evans Ventura MD [address] [place] [address] Medication Question Social History Tobacco Use Types [...] documented as of this encounter Care Teams Laboratory Monitor Relationship Specialty Start Date End Date Evans Ventura MD [address] [place] [id number] PCP - General Internal Medicine 04/14/20 documented as of this encounter
--- OUTSIDE RECORDS SUMMARY | 2025-09-11 15:42 | XMS_ITS | Encounter Summary ---
Author Organization [employer] Address [address] [facility] 7t [place] [address] Care Team Providers Care Dewatering Filtering Supervisor Name Role Phone Evans Ventura MD Primary Care Prov ider Reason for Visit * Reason Onset Date Comments Appointment Request 02/07/2025 Encounter Details Date Type Department Care Team ([facility] st Contact Info) Description 02/07/2025 Telephone [facility] MEDICINE [address] [place] [address] Evans Ventura MD [address] [place] [address] Appointment Request Social History Tobacco Use Types Packs/Day Years [...] encounter Miscellaneous Notes * Telephone Encounter - Miguel Ángel Gonzalez - 02/07/2025 2:06 PM EDT Tc from pt requesting appointment for a physical , let patient know provider will not be in yet forin person appointment. Cnc Set Up Operator offer a telehealth as pt denied. documented in this encounter Plan of Treatment Not on file documented as of this encounter Visit Diagnoses Not on filedocumented in this encounter Additional Health Concerns Assessment Noted Time PHQ-9 Depression Total Score: 0 08/02/20 23 3:13 PM EDT documented as of this encounter Care Teams Dewatering Filtering Supervisor Relationship Specialty Start Date End Date Evans Ventura MD [address] [place] [id number] PCP - General Internal Medicine 04/14/20 documented as of this encounter
--- OUTSIDE RECORDS SUMMARY | 2025-09-11 15:42 | XMS_ITS | Encounter Summary ---
Author Organization [employer] Address [address] [facility] 7t [place] [address] Care Team Providers Care Pan Puller Name Role Phone Evans Ventura MD Primary Care Prov ider Reason for Visit * Reason Onset Date Comments Med Refill 09/20/2023 Encounter Details Date Type Department Care Team ([facility] st Contact Info) Description 09/20/2023 Telephone [facility] MEDICINE [address] [place] [address] Evans Ventura MD [address] [place] [address] Med Refill Social History Tobacco Use Types [...] documented as of this encounter Care Teams Pan Puller Relationship Specialty Start Date End Date Evans Ventura MD [address] [place] [id number] PCP - General Internal Medicine 04/14/20 documented as of this encounter
--- OUTSIDE RECORDS SUMMARY | 2025-09-11 15:42 | XMS_ITS | Encounter Summary ---
Author Organization [employer] Address [address] [facility] 7t [place] [address] Care Team Providers Care Integrated Circuit Design Engineer Name Role Phone Evans Ventura MD Primary Care Prov ider Reason for Visit * Reason Onset Date Comments Nurse Triage 09/24/2023 Encounter Details Date Type Department Care Team (Late st Contact Info) Description 09/24/2023 Telephone [facility] MEDICINE [address] [place] [address] Evans Ventura MD [address] [place] [address] Nurse Triage Social History Tobacco Use Types [...] Pagan RN - 09/24/2023 2:33 PM EST Air And Water Tester notified by par that Pt requests a call back from triage nurse. Call to Pt , Pt reports is still waiting for call back from Doctor. Advised Pt that triage note was sent to [facility] nurses and PCP and then [facility] project manager entertainment and media sent triage to PCP. Now awaiting PCP response. Pt has no further questions , call ended. * Telephone Encounter - Sarah Pagan RN - 09/24/2023 10:24 AM EST Triage call Pt seen [facility] 09/20/23 and was prescribed a new BP med. Amlodipine 5mg. Pt didn't receive medication till 09/22/23 and started taking it right away. Pt was seen in [facility] 09/22/23 for symptoms of Headache and BP high. Pt BP last night 09/23/23 was 155/107 and this AM it is 138/101. Pt is continuing to take the HCTZ 50mg as prescribed. Pt is requesting increased dosage of new medication or advice from PCP. Advised Pt telegraphic typewriter installer will forward this request to PCP and nursing team in [facility] and Pt agreed. Protocol Used: Medication Question [...] documented as of this encounter Care Teams Integrated Circuit Design Engineer Relationship Specialty Start Date End Date Evans Ventura MD [address] [place] [id number] PCP - General Internal Medicine 04/14/20 documented as of this encounter
--- OUTSIDE RECORDS SUMMARY | 2025-09-11 15:42 | XMS_ITS | Encounter Summary ---
Author Organization [employer] Address [address] [facility] 7t [place] [address] Care Team Providers Care Office Agent Name Role Phone Evans Ventura MD Primary Care Prov ider Reason for Visit * Reason Onset Date Comments Med Refill 09/20/2023 Encounter Details Date Type Department Care Team ([facility] st Contact Info) Description 09/20/2023 Telephone [facility] MEDICINE [address] [place] [address] Evans Ventura MD [address] [place] [address] Med Refill Social History Tobacco Use Types [...] documented as of this encounter Care Teams Office Agent Relationship Specialty Start Date End Date Evans Ventura MD [address] [place] [id number] PCP - General Internal Medicine 04/14/20 documented as of this encounter
--- OUTSIDE RECORDS SUMMARY | 2025-09-11 15:42 | XMS_ITS | Clinical Summary ---
Author Organization [employer] Address [address] [facility] 7t [place] [address] Care Team Providers Care Block Trader Name Role Phone Evans Ventura MD Primary Care Prov ider Allergies Active Allergy Reactions Criticality Noted Date Comments Lisinopril Anaphylaxis High 12/05/2019 Shellfish Allergy Anaphylaxis High 11/06/2022 Medications EPINEPHrine (EpiPen 2-Misbah) 0.3 MG/0.3ML injection syringe Inject 0.3 mL (0.3 mg) as directed 1 (one) time for 1 dose. 0.3 mL 5 Active hydroCHLOROthiazi de (HYDRODiuril) 50 MG tabletIndications :Primary hypertension Take 1 tablet (50 mg) by mouth in the morning. 90 tablet 3 5 Active cetirizine (ZyrTEC) 10 MG tablet Take 1 tablet (10 mg) by mouth in the morning. 90 tablet 3 5 Active amLODIPine (Norvasc) 10 MG tabletIndications :Primary hypertension Take 1 tablet (10 mg) by mouth in the morning. 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 Intractable migraine with aura without status mi [...] for colon cancer 08/04/2023 Assessment & Plan (05/23/2025 2:40 PM EDT): Will refer for screening colon cancer Assessment & Plan (08/04/2023 9:51 PM EDT): Will refer for screening colonoscopy Deviated septum 08/04/2023 Assessment & Plan (05/23/2025 2:40 PM EDT): Will refer to ENT for evaluation Assessment & Plan (01/20/2024 9:37 AM EST): Patient refer having chronic breathing difficulty, will refer to ENT as per requested to odalis to be evaluated Assessment & Plan (08/04/2023 9:51 PM EDT): Will refer to ent for evaluation 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 11/06/2022 Primary hypertension 11/06/2022 Assessment & Plan (05/23/2025 2:39 PM EDT): Slightly above target, patient not interested in adding more medications, wants to improve his diet, follow up in 1 month Assessment & Plan (02/03/2024 8:34 AM EDT): [...] Encounters Date Type Department Care Team Description 07/17/2025 Telephone [facility] MED & PEDS [address] [place] [address] Evans Ventura MD chart prep 06/26/2025 Telephone [facility] MED & PEDS [address] [place] [address] Evans Ventura MD from Last 3 Months Immunizations Immunization Administration Dates Next Due Influenza, IIV3, injectable 09/04/2016 Pfizer Covid-19 Vaccine 12+ stefany-sucrose (Pepe Reyez ap) 01/31/2022 Tdap 11/22/2009 Social History Tobacco [...] Sign Reading Time Taken Comments Blood Pressure 147/91 05/23/2025 2:23 PM EDT Pulse 96 05/23/2025 2:23 PM EDT Temperature 37.2 C (98.9 F) 05/23/2025 2:23 PM EDT Respiratory Rate 20 05/23/2025 2:23 PM EDT Oxygen Saturation 96% 11/06/2022 1:11 PM EST Inhaled Oxygen Concentration - - Weight 103 kg (226 lb) 05/23/2025 2:23 PM EDT Height 175.3 cm (5' 9 ) 05/23/2025 2:23 PM EDT Body Mass Index 33.37 05/23/2025 2:23 PM EDT Plan of Treatment Health Maintenance Due Date Last Done Comments CT Colonography 1968 Colonoscopy 1968 Colorectal Cancer Screening 1968 FIT DNA/Cologuard 1968 FIT 1968 FOBT 1968 Sigmoidoscopy 1968 Disability Screening 1968 Alcohol/Substance Use Screening 1980 Hepatitis B Vaccines (1 of 3 - 19+ 3-dose series) 1987 Pneumococcal Vaccine: 50+ Years (1 of 1 - PCV) 2018 Zoster Vaccines (1 of 2) 2018 DTaP/Tdap/Td Vaccines (2 - T d or Tdap) 11/22/2019 11/22/2009 Tobacco Screening 11/06/2023 11/06/2022 Depression Screening 08/02/2024 08/02/2023, 08/02/2023 SDOH Screening 08/02/2024 08/02/2023 COVID-19 Vaccine (4 - 2024-2 6 season) 2025 01/31/2022, 08/09/2021, 07/12/2021 Influenza Vaccine (#1) 2025 09/04/2016 Lipid Panel 05/24/2030 05/24/2025 RSV Patients and Patients Aged 60 years or older (1 - 1-dose 75+ series) 2043 HIV Screening Completed 05/24/2025 Hepatitis C Screening Completed 05/24/2025 HIB Vaccines Aged Out No longer eligi [...] patient's age to complete this topic Meningococcal B Vaccine Aged Out No l onger eligible based on patient's age to complete [...] Procedure Name Priority Date/Time Associated Diagnosis Comments HEPATITIS C AB W/REFL TO HCV RNA, QN, PCR Routine 05/24/2025 7:02 AM EDT Primary hypertension HIV 1/2 ANTIGEN/ANTIBODY, FOURTH GENERATION W/RFL Routine 05/24/2025 7:02 AM EDT Primary hypertension LIPID PANEL, STANDARD Routine 05/24/2025 7:02 AM EDT Primary hypertension from Last 3 Months or Most Recently Relevant to Health Maintenance Results * Hepatitis C Antibody with Reflex to HCV, RNA, Quantitative, Real-Time PCR (05/24/2025 7:02 AM EDT) Hepatitis C Antibody Nonreactive Nonreactive [facility] Comment:Antibodies to HCV no t detected; does not exclude early acuteHCV infection. Blood Venous blood specimen / Unknown 05/24/2025 7:02 AM EDT 05/24/2025 7:02 AM EDT us Evans Villa MD LAB BLOOD ORDERABL ES Final Result [facility] [address] [place] [phone] * HIV-1/2 Antigen and Antibodies, Fourth Generation, with Reflexes (05/24/2025 7:02 AM EDT) HIV AB/AG Nonreactive Nonreactive [facility] Comment:HIV-1 p24 Ag and/or HIV-1/HIV-2 Ab not detected.A test result that is nonreactive does not exclude thepossibility of exposure to or infection with HIV-1 and/orHIV-2. Nonreactive results in this assay for individualswith prior exposure to HIV-1 and/or HIV-2 may be due toantigen and antibody levels that are below the limit ofdetection of this assay.The [employer] HIV Ag/Ab Combo assay result andsupplemental assay results should be interpreted inconjunction with the patient's clinical presentation,history and other laboratory results. If the results areinconsistent with clinical evidence, additional testing issuggested to confirm the result. Blood Venous blood specimen / Unknown 05/24/2025 7:02 AM EDT 05/24/2025 7:02 AM EDT us Evans Villa MD LAB BLOOD ORDERABL ES Final Result [facility] [address] [place] [phone] * (ABNORMAL) Lipid Panel, Standard (05/24/2025 7:02 AM EDT) Triglycerides 132 <150 mg/dL [facility] Comment:Desirable Triglyceri de: less than 150 mg/dLBorderline High Triglyceride 150-199 mg/dLHigh Triglyceride: 200-499 mg/dLVery High Triglyceride: greater than or equal to 5OO mg/dL Cholesterol 211(H) <200 mg/dL [facility] Comment:Desirable Cholestero l: less than 200 mg/dLBorderline High Cholesterol: 200-239 mg/dLHigh Cholesterol: greater than 239 mg/dL LDL Cholesterol Calculated 149(H) <100 mg/dL [facility] Comment:Desirable LDL: less than 100 mg/dLNear Optimal/Above Optimal LDL: 110- 129 mg/dLBorderline High LDL: 130-159 mg/dLHigh LDL: 160-189 mg/dLVery High LDL: greater than or equal to 190 mg/dL HDL Cholesterol 36(L) >40 mg/dL [facility] Comment:Desirable HDL: great er than 40 mg/dL Note: This HDL assay may give artificially low results in patients with liver disease. Blood Venous blood specimen / Unknown 05/24/2025 7:02 AM EDT 05/24/2025 7:02 AM EDT Evans Villa MD LAB BLOOD ORDERABL ES Final Result [facility] [address] [facility] [place] [phone] from Last 3 Months or Most Recently Relevant to Health Maintenance Insurance [employer] Care Teams Block Trader Relationship Specialty Start Date End Date Evans Ventura MD [address] [place] [address] PCP - General Internal Medicine 04/14/20
--- OUTSIDE RECORDS SUMMARY | 2025-09-11 15:42 | XMS_ITS | Encounter Summary ---
Author Organization [employer] Address [address] [facility] [address] [place] [address] Care Team Providers Care Gas Station Attendant Name Role Phone Evans Ventura MD Primary Care Prov ider Reason for Visit * Reason Onset Date Comments Nurse Triage 01/26/2024 Encounter Details Date Type Department Care Team (Late st Contact Info) Description 01/26/2024 Telephone [facility] [address] [place] [address] Evans Ventura MD [address] [place] [address] Nurse Triage Social History Tobacco Use Types [...] Pt. Pt is advised to come to [facility] today, no apts available in [facility]. Pt declines to go to [facility] , what are they going to do [...] accepted this outcome Please contact pt at [phone] documented in this encounter Plan of Treatment Not on file documented as of this encounter Visit Diagnoses Not on filedocumented in this encounter Additional Health Concerns Assessment Noted Time PHQ-9 Depression Total Score: 0 08/02/20 23 3:13 PM EDT documented as of this encounter Care Teams Gas Station Attendant Relationship Specialty Start Date End Date Evans Ventura MD [address] [place] [id number] PCP - General Internal Medicine 04/14/20 documented as of this encounter
--- OUTSIDE RECORDS SUMMARY | 2025-09-11 15:42 | XMS_ITS | Encounter Summary ---
Author Organization [employer] Address [address] [facility] 7t [place] [address] Care Team Providers Care Video Control Operator Name Role Phone Evans Ventura MD Primary Care Prov ider Encounter Details Date Type Department Care Team (Late st Contact Info) Description 11/05/2022 Orders Only [facility] MEDICINE [address] [place] [address] Evans Ventura MD [address] [place] [address] Primary hypertension Social History Tobacco Use Types [...] hypertension documented in this encounter Care Teams Video Control Operator Relationship Specialty Start Date End Date Evans Ventura MD [address] [place] [address] PCP - General Internal Medicine 04/14/20 documented as of this encounter
--- OUTSIDE RECORDS SUMMARY | 2025-09-11 15:42 | XMS_ITS | Encounter Summary ---
Author Organization [employer] Address [address] [facility] [address]t [place] [address] Care Team Providers Care Dental Equipment Repairer Name Role Phone Evans Ventura MD Primary Care Prov ider Reason for Visit * Reason Comments Med Refill Encounter Details Date Type Department Care Team ([facility] Contact Info) Description 03/22/2025 Refill [facility]S [address] [place] [address] Evans Ventura MD [address] [place] [address] Primary hypertension Social History Tobacco Use Types [...] documented as of this encounter Care Teams Dental Equipment Repairer Relationship Specialty Start Date End Date Evans Ventura MD [address] [place] [phone] PCP - General Internal Medicine 04/14/20 documented as of this encounter
== END 2025-09-11 13:19 | disposition home or self-care (01) ==
LOC: HO.HGI 12:28
PROVIDERS: PCP Internal Medicine; Visit Provider Nurse Practitioner Family
DX: Z01.818 Encounter for other preprocedural examination (principal); Z12.11 Encounter for screening for malignant neoplasm of colon; R14.2 Eructation
CPT/HCPCS: 99204

== ENCOUNTER 2025-09-13 12:55 | Outpatient (REF) | payer OTHER, SELFPAY ==
--- OUTSIDE RECORDS SUMMARY | 2025-09-13 17:51 | XMS_ITS | Encounter Summary ---
Author Organization [employer] Address [address] [facility] 7t [place] [address] Care Team Providers Care Music Therapy Specialist Name Role Phone Evans Ventura MD Primary Care Prov ider Reason for Visit * Reason Onset Date Comments Medication Question 01/27/2024 Encounter Details Date Type Department Care Team ([facility] st Contact Info) Description 01/27/2024 Telephone [facility] [address] [place] [address] Evans Ventura MD [address] [place] [address] Medication Question Social History Tobacco Use Types [...] documented as of this encounter Care Teams Music Therapy Specialist Relationship Specialty Start Date End Date Evans Ventura MD [address] [place] [phone] PCP - General Internal Medicine 04/14/20 documented as of this encounter
--- OUTSIDE RECORDS SUMMARY | 2025-09-13 17:51 | XMS_ITS | Encounter Summary ---
Author Organization [employer] Address [address] [facility] [address]t [place] [address] Care Team Providers Care Clay Press Operator Name Role Phone Evans Ventura MD Primary Care Prov ider Reason for Visit * Reason Onset Date Comments Nurse Triage 01/26/2024 Encounter Details Date Type Department Care Team (Late st Contact Info) Description 01/26/2024 Telephone [facility] [address] [place] [address] Evans Ventura MD [address] [place] [address] Nurse Triage Social History Tobacco Use Types [...] Pt. Pt is advised to come to [facility] today, no apts available in [facility]. Pt declines to go to [facility] , what are they going to do [...] accepted this outcome Please contact pt at [phone] documented in this encounter Plan of Treatment Not on file documented as of this encounter Visit Diagnoses Not on filedocumented in this encounter Additional Health Concerns Assessment Noted Time PHQ-9 Depression Total Score: 0 08/02/20 23 3:13 PM EDT documented as of this encounter Care Teams Clay Press Operator Relationship Specialty Start Date End Date Evans Ventura MD [address] [place] [phone] PCP - General Internal Medicine 04/14/20 documented as of this encounter
--- OUTSIDE RECORDS SUMMARY | 2025-09-13 17:51 | XMS_ITS | Clinical Summary ---
Author Organization [employer] Address [address] [facility] 7t [place] [address] Care Team Providers Care Quality Control Chemist Name Role Phone Evans Ventura MD Primary [...] testosterone, explained test has to be done executive recruiter Intractable migraine with aura without status mi [...] Type Department Care Team Description 07/17/2025 Telephone [facility] [address] [place] [address] Evans Ventura MD chart prep 06/26/2025 Telephone [facility] [address] [place] [address] Evans Ventura MD from Last 3 Months Immunizations Immunization Administration Dates Next Due Influenza, IIV3, injectable 09/04/2016 Pfizer Covid-19 Vaccine 12+ stefany-sucrose (Pepe Reyze ap) 01/31/2022 Tdap 11/22/2009 Social History Tobacco [...] Procedure Name Priority Date/Time Associated Diagnosis Comments HELICOBACTER PYLORI, UREA BREATH TEST Routine 09/13/2025 1:01 PM EDT HEPATITIS C AB W/REFL TO HCV RNA, QN, PCR Routine 05/24/2025 7:02 AM EDT Primary hypertension HIV 1/2 ANTIGEN/ANTIBODY, FOURTH GENERATION W/RFL Routine 05/24/2025 7:02 AM EDT Primary hypertension LIPID PANEL, STANDARD Routine 05/24/2025 7:02 AM EDT Primary hypertension from Last 3 Months or Most Recently Relevant to Health Maintenance Results * Helicobacter pylori, Urea Breath Test (09/13/2025 1:01 PM EDT) H. pylori Breath Test Negative Negative [facility] Comment:Antimicrobials, prot on pump inhibitors and bismuthpreparations are known to suppress H. pylori. Ingestingthese medications within two weeks prior to performing thebreath test may produce negative test results. A positiveresult is still clinically valid. 09/13/2025 1:01 PM EDT 09/13/2025 2:58 PM EDT us Generic External Data Provider LAB BODY FLUIDS A ND STOOLS ORDERABLES Final Result [facility] [address] [place] [phone] * Hepatitis C Antibody with Reflex to HCV, RNA, Quantitative, Real-Time PCR (05/24/2025 7:02 AM EDT) Hepatitis C Antibody Nonreactive Nonreactive [facility] Comment:Antibodies to HCV no t detected; does not exclude early acuteHCV infection. Blood Venous blood specimen / Unknown 05/24/2025 7:02 AM EDT 05/24/2025 7:02 AM EDT Evans Villa MD LAB BLOOD ORDERABL ES Final Result Performing Organization Address [facility] Co de Phone Number [facility] [address] [place] [phone] * HIV-1/2 Antigen and Antibodies, Fourth Generation, with Reflexes (05/24/2025 7:02 AM EDT) HIV AB/AG Nonreactive Nonreactive [facility] Comment:HIV-1 p24 Ag and/or HIV-1/HIV-2 Ab not detected.A test result that is nonreactive does not exclude thepossibility of exposure to or infection with HIV-1 and/orHIV-2. Nonreactive results in this assay for individualswith prior exposure to HIV-1 and/or HIV-2 may be due toantigen and antibody levels that are below the limit ofdetection of this assay.The [employer] HIV Ag/Ab Combo assay result andsupplemental assay results should be interpreted inconjunction with the patient's clinical presentation,history and other laboratory results. If the results areinconsistent with clinical evidence, additional testing issuggested to confirm the result. Blood Venous blood specimen / Unknown 05/24/2025 7:02 AM EDT 05/24/2025 7:02 AM EDT us Evans Villa MD LAB BLOOD ORDERABL ES Final Result Performing Organization Address [facility]/ZIP Co de Phone Number [facility] [address] [place] [phone] * (ABNORMAL) Lipid Panel, Standard (05/24/2025 7:02 AM EDT) Triglycerides 132 <150 mg/dL [facility] Comment:Desirable Triglyceri de: less than 150 mg/dLBorderline High Triglyceride 150-199 mg/dLHigh Triglyceride: 200-499 mg/dLVery High Triglyceride: greater than or equal to 5OO mg/dL Cholesterol 211(H) <200 mg/dL [facility] Comment:Desirable Cholestero l: less than 200 mg/dLBorderline High Cholesterol: 200-239 mg/dLHigh Cholesterol: greater than 239 mg/dL LDL Cholesterol Calculated 149(H) <100 mg/dL [facility] Comment:Desirable LDL: less than 100 mg/dLNear Optimal/Above Optimal LDL: 110- 129 mg/dLBorderline High LDL: 130-159 mg/dLHigh LDL: 160-189 mg/dLVery High LDL: greater than or equal to 190 mg/dL HDL Cholesterol 36(L) >40 mg/dL [facility] Comment:Desirable HDL: great er than 40 mg/dL Note: This HDL assay may give artificially low results in patients with liver disease. Blood Venous blood specimen / Unknown 05/24/2025 7:02 AM EDT 05/24/2025 7:02 AM EDT us Evans Villa MD LAB BLOOD ORDERABL ES Final Result [facility] [address] [place] [phone] from Last 3 Months or Most Recently Relevant to Health Maintenance Insurance [facility] CHOICE Care Teams Quality Control Chemist Relationship Specialty Start Date End Date Evans Ventura MD [address] [place] [phone] PCP - General Internal Medicine 04/14/20
--- OUTSIDE RECORDS SUMMARY | 2025-09-13 17:51 | XMS_ITS | Encounter Summary ---
Author Organization [employer] Address [address] [facility] 7t [place] [address] Care Team Providers Care Pipe Production Worker Name Role Phone Evans Ventura MD Primary Care Prov ider Encounter Details Date Type Department Care Team (Late st Contact Info) Description 11/05/2022 Orders Only [facility] MED[facility]INE [address] [place] [address] Evans Ventura MD [address] [place] [address] Primary hypertension Social History Tobacco Use Types [...] hypertension documented in this encounter Care Teams Pipe Production Worker Relationship Specialty Start Date End Date Evans Ventura MD [address] [place] [address] PCP - General Internal Medicine 04/14/20 documented as of this encounter
--- OUTSIDE RECORDS SUMMARY | 2025-09-13 17:51 | XMS_ITS | Encounter Summary ---
Author Organization [email or web address] Address [address] [facility] 7t [place] [address] Care Team Providers Care Copywriting Intern Name Role Phone Evans Ventura MD Primary Care Prov ider Reason for Visit * Reason Onset Date Comments Med Refill 09/20/2023 Encounter Details Date Type Department Care Team ([facility] st Contact Info) Description 09/20/2023 Telephone [facility] MED[facility]INE [address] [place] [address] Evans Ventura MD [address] [place] [address] Med Refill Social History Tobacco Use Types [...] documented as of this encounter Care Teams Copywriting Intern Relationship Specialty Start Date End Date Evans Ventura MD [address] [place] [phone] PCP - General Internal Medicine 04/14/20 documented as of this encounter
--- OUTSIDE RECORDS SUMMARY | 2025-09-13 17:51 | XMS_ITS | Encounter Summary ---
Author Organization [employer] Address [address] [facility] 7t [place] [address] Care Team Providers Care Client Experience Consultant Name Role Phone Evans Ventura MD Primary Care Prov ider Reason for Visit * Reason Onset Date Comments Med Refill 09/20/2023 Encounter Details Date Type Department Care Team ([facility] st Contact Info) Description 09/20/2023 Telephone [facility] MEDICINE [address] [place] [address] Evans Ventura MD [address] [place] [address] Med Refill Social History Tobacco Use Types [...] documented as of this encounter Care Teams Client Experience Consultant Relationship Specialty Start Date End Date Evans Ventura MD [address] [place] [phone] PCP - General Internal Medicine 04/14/20 documented as of this encounter
--- OUTSIDE RECORDS SUMMARY | 2025-09-13 17:51 | XMS_ITS | Encounter Summary ---
Author Organization [employer] Address [address] [facility] 7t [place] [address] Care Team Providers Care Field Administrator Name Role Phone Evans Ventura MD Primary Care Prov ider Reason for Visit * Reason Comments Med Refill Encounter Details Date Type Department Care Team ([facility] Contact Info) Description 03/22/2025 Refill [facility] [address] [place] [address] Evans Ventura MD [address] [place] [address] Primary hypertension Social History Tobacco Use Types [...] as of this encounter Care Teams Field Administrator Relationship Specialty Start Date End Date Evans Ventura MD [address] [place] [phone] PCP - General Internal Medicine 04/14/20 documented as of this encounter
--- OUTSIDE RECORDS SUMMARY | 2025-09-13 17:51 | XMS_ITS | Encounter Summary ---
Author Organization [employer] Address [address] [facility] 7t [place] [address] Care Team Providers Care Chief Minister Name Role Phone Evans Ventura MD Primary Care Prov ider Reason for Visit * Reason Onset Date Comments Appointment Request 02/07/2025 Encounter Details Date Type Department Care Team ([facility] st Contact Info) Description 02/07/2025 Telephone [facility] MEDICINE [address] [place] [address] Evans Ventura MD [address] [place] [address] Appointment Request Social History Tobacco Use Types [...] not be in yet forin person appointment. Dressing Room Attendant offer a telehealth as pt denied. documented in this encounter Plan of Treatment Not on file documented as of this encounter Visit Diagnoses Not on filedocumented in this encounter Additional Health Concerns Assessment Noted Time PHQ-9 Depression Total Score: 0 08/02/20 23 3:13 PM EDT documented as of this encounter Care Teams Chief Minister Relationship Specialty Start Date End Date Evans Ventura MD [address] [place] [phone] PCP - General Internal Medicine 04/14/20 documented as of this encounter
--- OUTSIDE RECORDS SUMMARY | 2025-09-13 17:51 | XMS_ITS | Encounter Summary ---
Author Organization [employer] Address [address] [facility] [address]t [place] [address] Care Team Providers Care Highway Maintenance Crew Worker Name Role Phone Evans Ventura MD Primary Care Prov ider Reason for Visit * Reason Onset Date Comments Nurse Triage 09/24/2023 Encounter Details Date Type Department Care Team (Late st Contact Info) Description 09/24/2023 Telephone [facility]ICINE [address] [place] [address] Evans Ventura MD [address] [place] [address] Nurse Triage Social History Tobacco Use Types [...] Pagan RN - 09/24/2023 2:33 PM EST [employer] notified by par that Pt requests a call back from triage nurse. Call to Pt , Pt reports is still waiting for call back from Doctor. Advised Pt that triage note was sent to [facility] nurses and PCP and then [facility] sports betting manager sent triage to PCP. Now awaiting PCP response. Pt has no further questions , call ended. * Telephone Encounter - Sarah Pagan RN - 09/24/2023 10:24 AM EST Triage call Pt seen [facility] 09/20/23 and was prescribed a new BP med. Amlodipine 5mg. Pt didn't receive medication till 09/22/23 and started taking it right away. Pt was seen in [facility] 09/22/23 for symptoms of Headache and BP high. Pt BP last night 09/23/23 was 155/107 and this AM it is 138/101. Pt is continuing to take the HCTZ 50mg as prescribed. Pt is requesting increased dosage of new medication or advice from PCP. Advised Pt program writer will forward this request to PCP and nursing team in [facility] and Pt agreed. Protocol Used: Medication [...] documented as of this encounter Care Teams Highway Maintenance Crew Worker Relationship Specialty Start Date End Date Evans Ventura MD [address] [place] [phone] PCP - General Internal Medicine 04/14/20 documented as of this encounter
== END 2025-09-13 12:56 | disposition home or self-care (01) ==
LOC: HO.LNP 12:55
PROVIDERS: PCP Internal Medicine; Visit Provider Nurse Practitioner Family
DX: R14.2 Eructation (principal)
CPT/HCPCS: 83013